=== PATIENT | male | born 1955 | race Caucasian/White ===

== ENCOUNTER → 2019-03-29 12:33 | Outpatient (BNVA) | payer MEDICAID, SELFPAY | PROVIDERS: Family Provider Nurse Practitioner Family; PCP Nurse Practitioner Family; Visit Provider Nurse Practitioner | DX: M54.5 Low back pain (principal); F17.220 Nicotine dependence, chewing tobacco, uncomplicated; Z79.891 Long term (current) use of opiate analgesic | CPT/HCPCS: 99213; 99214 ==

== ENCOUNTER → 2019-04-26 09:04 | Outpatient (BNVA) | payer MEDICAID, SELFPAY | PROVIDERS: Family Provider Nurse Practitioner Family; PCP Nurse Practitioner Family; Visit Provider Nurse Practitioner | DX: M54.5 Low back pain (principal); F17.220 Nicotine dependence, chewing tobacco, uncomplicated; Z79.891 Long term (current) use of opiate analgesic; Z71.6 Tobacco abuse counseling | CPT/HCPCS: 99214 ==

== ENCOUNTER → 2019-05-18 10:45 | Outpatient (BNVA) | payer MEDICAID, SELFPAY | PROVIDERS: Family Provider Nurse Practitioner Family; PCP Nurse Practitioner Family; Visit Provider Nurse Practitioner Family | DX: E11.9 Type 2 diabetes mellitus without complications (principal); R53.83 Other fatigue | CPT/HCPCS: 80053; 83036; 84443; 85025 ==

== ENCOUNTER → 2019-08-10 09:07 | Outpatient (BNVA) | payer MEDICAID, SELFPAY | PROVIDERS: Family Provider Nurse Practitioner Family; PCP Nurse Practitioner Family; Visit Provider Nurse Practitioner | DX: M47.816 Spondylosis without myelopathy or radiculopathy, lumbar region (principal); M54.9 Dorsalgia, unspecified; F17.220 Nicotine dependence, chewing tobacco, uncomplicated; Z79.891 Long term (current) use of opiate analgesic; Z71.6 Tobacco abuse counseling | CPT/HCPCS: 99213; 99214 ==

== ENCOUNTER → 2019-08-14 15:37 | Outpatient (BNVA) | payer MEDICAID, SELFPAY | PROVIDERS: Family Provider Nurse Practitioner Family; PCP Nurse Practitioner Family; Visit Provider Nurse Practitioner Family | DX: E11.9 Type 2 diabetes mellitus without complications (principal); Z79.4 Long term (current) use of insulin | CPT/HCPCS: 80053; 81001; 83036; 85025 ==

== ENCOUNTER 2019-09-27 13:50 | Outpatient (CLI) | payer MEDICAID, SELFPAY ==
--- NOTE | 2019-09-27 13:56 | US_ITS ---
WS: [id number] RENAL ULTRASOUND HISTORY: CKD STAGE 3 COMPARISON: 08/18/2018 TECHNIQUE: 2-D and color Doppler imaging of the kidney submitted. Right kidney: 10.3 cm x 4.3 cm x 4.4 cm. Normal echogenicity with no hydronephrosis or mass. Left kidney: 10.9 cm x 4.6 cm x 6.0 cm. Normal echogenicity with no hydronephrosis or mass. Aorta: Normal. Urinary Bladder: Normal distention. US/US renal BI* [id number] IMPRESSION: Normal renal ultrasound.
== END 2019-09-27 13:51 | disposition home or self-care (01) ==
LOC: RAD 13:51
PROVIDERS: Family Provider Nurse Practitioner Family; PCP Nurse Practitioner Family; Visit Provider Internal Medicine Nephrology
DX: N18.3 Chronic kidney disease, stage 3 (moderate) (principal)
CPT/HCPCS: 76770

== ENCOUNTER → 2019-10-20 08:02 | Outpatient (BNVA) | payer MEDICAID, SELFPAY | PROVIDERS: Family Provider Nurse Practitioner Family; PCP Nurse Practitioner Family; Visit Provider Anesthesiology | DX: M47.816 Spondylosis without myelopathy or radiculopathy, lumbar region (principal); M54.9 Dorsalgia, unspecified; F17.220 Nicotine dependence, chewing tobacco, uncomplicated; Z79.891 Long term (current) use of opiate analgesic; Z71.6 Tobacco abuse counseling | CPT/HCPCS: 99214 ==

== ENCOUNTER → 2019-12-14 13:22 | Outpatient (BNVA) | payer MEDICAID, SELFPAY | PROVIDERS: Family Provider Nurse Practitioner Family; PCP Nurse Practitioner Family; Visit Provider Nurse Practitioner Family | DX: E10.22 Type 1 diabetes mellitus with diabetic chronic kidney disease (principal); N18.30 Chronic kidney disease, stage 3 unspecified | CPT/HCPCS: 82043; 85007; 85027 ==

== ENCOUNTER → 2019-12-18 14:09 | Outpatient (BNVA) | payer MEDICAID, SELFPAY | PROVIDERS: Family Provider Nurse Practitioner Family; PCP Nurse Practitioner Family; Visit Provider Internal Medicine Nephrology | DX: N28.9 Disorder of kidney and ureter, unspecified (principal) | CPT/HCPCS: 80069 ==

== ENCOUNTER → 2019-12-20 10:26 | Outpatient (BNVA) | payer MEDICAID, SELFPAY | PROVIDERS: Family Provider Nurse Practitioner Family; PCP Nurse Practitioner Family; Visit Provider Anesthesiology | DX: M47.816 Spondylosis without myelopathy or radiculopathy, lumbar region (principal); M54.9 Dorsalgia, unspecified; F17.220 Nicotine dependence, chewing tobacco, uncomplicated; Z79.891 Long term (current) use of opiate analgesic; Z71.6 Tobacco abuse counseling | CPT/HCPCS: 99214 ==

== ENCOUNTER 2020-01-22 18:17 | Inpatient (IN) | payer MEDICAID, SELFPAY ==
[2020-01-22 18:31] VITALS: BP 145/79; PULSE 89; RESP 17; O2SAT 94
--- NOTE | 2020-01-22 18:41 | CTR_ITS ---
PROCEDURE INFORMATION: Exam: CT Head Without Contrast Exam date and time: 01/22/2020 6:57 PM Age: 64 years old Clinical indication: Altered mental status/memory loss; Additional info: Lethargy, TECHNIQUE: Imaging protocol: Computed tomography of the head without contrast. Radiation optimization: All CT scans at this facility use at least one of these dose optimization techniques: automated exposure control; mA and/or kV adjustment per patient size (includes targeted exams where dose is matched to clinical indication); or iterative reconstruction. COMPARISON: No relevant prior studies available. RADIATION DOSE METRICS: Total DLP (mGy-cm): 849.24 FINDINGS: Brain: Mild atrophy and mild white matter chronic microvascular changes are noted. No hemorrhage or CT evidence of acute infarction is seen. Cerebral ventricles: No ventriculomegaly. Bones/joints: Unremarkable. No acute fracture. Paranasal sinuses: Visualized sinuses are unremarkable. No fluid levels. Mastoid air cells: Visualized mastoid air cells are well aerated. Soft tissues: Unremarkable. CT/CT head wo con* [id number] IMPRESSION: No acute intracranial abnormality. Radiation Dose CTDIVOL = (mGy): DLP = 849.24 (mGy-cm)
--- NOTE | 2020-01-22 18:41 | XR_ITS ---
WS: [id number] Exam: XR chest 1V portable [id number] Date/Time of Exam: 01/22/2020 6:54 PM Reason For Exam: syncope Comparison 08/13/2018. Findings: The lungs are clear and fully expanded. Costophrenic angles are sharp. No infiltrates. Bronchovascula r relief appears normal. Cardiac silhouette is unremarkable. Bony elements are intact. XR/XR chest 1V portable [id number] IMPRESSION: Unremarkable chest radiograph.
--- NOTE | 2020-01-22 18:42 | ECG_ITS ---
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 Measurements Intervals Erin Rate: 95 P: NM: -1 QRS: -27 QRSD: 93 T: -9 QT: 365 QTc: 460 Interpretive Statements SINUS RHYTHM WITH FREQUENT PREMATURE COMPLEXES BORDERLINE LEFT AXIS DEVIATION [QRS AXIS < -20] MODERATE T-WAVE ABNORMALITY, CONSIDER ANTEROLATERAL ISCHEMIA [-0.1+ mV T WAVE IN V3-V6] Compared to ECG 08/13/2018 17:31:58 T-wave abnormality now present Possible ischemia now present Sinus tachycardia no longer present Electronically Signed On 01-24-2020 8:03:23 HOSPITAL NURSE LIAISON by Maria Luisa Jacobsen M.D. [id number]
--- NOTE | 2020-01-22 18:46 | ED_ITS ---
Documented by User: MEG Peña 01/23/20 19:21 HPI - Weakness General: Chief complaint: Weakness Stated complaint: LETHARGIC Time Seen by Provider: 01/22/20 18:25 Source: patient and EMS Mode of arrival: EMS Limitations: altered mental status History of Present Illness: HPI Narrative: 64-year-old male patient presents to the emergency department with 6-day onset of not feeling well. He is a vague historian, difficulty with history of present illness and information. He reports not feeling well for 7 days, decreased energy. He reports not eating but extremely thirsty. His family was concerned due to lethargy, called 911 to have him evaluated in the ER. He denies cough congestion, denies chest pain, denies nausea vomiting diarrhea. Family reports he had a temperature prior to transfer to [facility], is appreciated here in the emergency department. During transport, EMS reports blood sugar 355. Family members recently tested positive for Covid 6 days ago. MD Complaint: generalized weakness and lack of energy Onset (ago): day(s) (6) Duration: constant and progressively worsening Severity: moderate Associated symptoms: Reports chills, confusion, decreased appetite and fever(s); Denies chest pain, diaphoresis, dysuria, easy bruising, headache(s), nausea or vomiting Review of Systems General: Reports: 10 or more systems reviewed and unremarkable except in HPI and below Const: Reports: fever(s), chills, fatigue, malaise and change in sleep pattern; Denies: diaphoresis Eyes: Denies: blurry vision or eye redness ENMT: Denies: throat pain, dental pain or disequilibrium Card: Denies: chest pain, palpitations or irregular heart rhythm Resp: Denies: dyspnea, productive cough, non-productive cough or wheezing GI: Denies: abdominal pain, nausea or vomiting : Denies: dysuria Musc: Denies: back pain Skin/Breast: Denies: rash or pruritus Neuro: Reports: confusion; Denies: headache(s), weakness in extremities or behavioral changes Psych: Denies: anxiety or depression Aaron/Lymph: Denies: easy bruising PFSH ED PFSH: Medical History (Updated 01/23/20 @ 11:15 by Bakari Britton MD) Arthralgia of lumbar spine Chewing tobacco use Chronic kidney disease (CKD) stage G3b/A3, moderately decreased glomerular fi ltration rate (GFR) between 30-44 mL/min/1.73 square meter and albuminuria creatinine ratio greater than 300 mg/g Diabetes mellitus, type II Encounter for long-term opiate analgesic use Essential hypertension, benign Osteoarthritis of lumbar spine Vitamin D deficiency Surgical History Hx of appendectomy Family History Mother Diabetes Brother Heart problem has 2 brothers with pacemakers Grandfather Cancer Social History Smoking and tobacco status: current every day smoker smokeless tobacco Smokeless tobacco user: chewing tobacco Smokeless tobacco details: 1 can every 2- 3 days Second hand smoke exposure: No Alcohol intake: never Desire information about alcohol rehabilitation?: No Counseling given: No Desire information about substance/drug rehabilitation?: No Counseling given: No History of recent travel: No Physical Exam Const: COMMON NORMALS: no acute distress and alert EXAM LIMITATIONS: altered mental status GENERAL APPEARANCE: cooperative, comfortable and frail appearing NUTRITIONAL APPEARANCE: thin ORIENTATION/CONSCIOUSNESS: Yes awake, Yes oriented to person, Yes oriented to place and Yes confused HENMT: COMMON NORMALS: normocephalic, atraumatic, external ears normal and Normal external nose present HEAD & SCALP: normocephalic and atraumatic FACE & SINUS: normal facial exam NOSE: Normal external nose present and Other nasal findings present (dry mucous membranes) EXTERNAL EAR: Yes external ears normal Eye: COMMON NORMALS: Equal, round and reactive pupils present and EOMs intact bilaterally GENERAL EYE: appearance normal, both eyes and all related structures EYELID: eyelids normal PUPIL: Yes Equal, round and reactive pupils present Neck/C-Spine: COMMON NORMALS: full ROM and no lymphadenopathy GENERAL: Yes normal visual inspection and Yes trachea midline CERVICAL SPINE: Yes cervical ROM normal Lymph: LYMPHATIC: no lymphadenopathy noted Chest: COMMONS NORMALS: normal inspection of the chest Resp: COMMON NORMALS: normal respiratory effort EFFORT & INSPECTION: Yes able to speak in complete sentences AUSCULTATION: crackles Laterality: bilateral Cardio: COMMON NORMALS: regular rhythm, S1 normal heart sound present, S2 normal heart sound present and Peripheral pulses 2+ throughout RHYTHM: regular rhythm HEART SOUNDS: S1 normal heart sound present and S2 normal heart sound present PERIPHERAL PULSES: Peripheral pulses 2+ throughout GI: COMMON NORMALS: Normal to inspection, nondistended, normoactive bowel sounds present, Soft to palpation and non-tender INSPECTION: Yes normal to inspection and Yes scar (Vertical midline) PALPATION: Yes Soft to palpation : COMMON NORMALS: Yes no CVA tenderness BLADDER/KIDNEY EXAM: Yes no CVA tenderness Back/Pelvis: COMMON NORMALS: no CVA tenderness, thoracic and lumbar spine normal to inspection, no thoracic nor lumbar tenderness and thoraco-lumbar ROM normal PELVIS: Yes buttocks normal SACROILIAC JOINTS: Yes SI joints normal Extremity: COMMON NORMALS: normal to inspection and capillary refill normal GENERAL: Yes normal exam except as noted Neuro: COMMON NORMALS: no focal motor deficits SENSORIUM/ORIENTATION: Yes alert, Yes oriented to person and Yes oriented to place Psych: COMMON NORMALS: mental status grossly normal, Normal thought process present and cooperative ACTIVITY/MOTOR BEHAVIOR: Yes appropriate eye contact THOUGHT PROCESS: Normal thought process present Skin: COMMON NORMALS: no rashes or lesions noted and turgor normal GENERAL SKIN EXAM: no rashes or lesions noted and turgor normal Course ED course: 64-year-old male patient presents to the emergency department with lethargy, confusion and not feeling well. O2 saturation remained 89 to 90% on room air. Patient required supplemental oxygen which is new. Chest x-ray did not reveal acute abnormality, urinalysis revealed urinary tract infection, CT the head negative for intracranial abnormality, positive ketones in serum, presume early DKA. Case discussed with Dr. Strickland, transfer of care with possible need for IV insulin. Suspect COVID-19 infection as exposure to family members with illness approximately 6 days ago. Rapid COVID-19 test negative upon exam but PTC currently pending. Vital Signs: Vital signs: Vital Signs Temperature 99.4 F 01/23/20 15:41 Pulse Rate 87 01/23/20 15:41 Respiratory Rate 16 01/23/20 15:41 Blood Pressure 125/67 01/23/20 15:41 Pulse Oximetry 93 01/23/20 15:41 MDM - Weakness Lab Data: Labs: Lab Results 01/22/20 01/22/20 01/22/20 Range/Units 18:58 18:58 18:58 WBC 9.2 (4.0-10.0) 10^3/ uL RBC 4.87 (4.1-5.3) 10^6/u L Hgb 14.2 (11.7-16.6) g/dL Hct 44.0 (42.0-52.0) % MCV 90.3 (80-94) fL MCH 29.2 (28.0-34.0) pg MCHC 32.3 (30.0-36.0) g/dL RDW 11.9 L (12.1-15.1) % Plt Count 193 (130-400) 10^3/c mm MPV 10.8 H (7.4-10.4) fL Neut % (Auto) 73.8 % Lymph % (Auto) 19.7 % [place] % (Auto) 5.8 % Eos % (Auto) 0.0 % Baso % (Auto) 0.3 % Neut # (Auto) 6.75 (1.8-7.7) 10^3/u L Lymph # (Auto) 1.8 (0.8-4.8) 10^3/u L [place] # (Auto) 0.5 (0.2-0.9) 10^3/u L Eos # (Auto) 0.0 (0.0-0.8) 10^3/u L Baso # (Auto) 0.0 (0.0-0.1) 10^3/u L Nucleated RBC % (a uto) 0 % Nucleated RBCs # 0.0 /100WBC PT 13.60 (12.1-14.9) SECO NDS INR 1.01 (0.8-1.2) APTT 29.2 (23.9-36.7) SECO NDS D-Dimer 0.94 H (0-0.59) ug/mIFE U Sodium 137 (136-145) mmol/L Potassium 4.5 (3.5-5.1) mmol/L Chloride 103 (98-107) mmol/L Carbon Dioxide 18 L (22-29) mmol/L Anion Gap 20.5 H (5-19) BUN 33 H (8-23) mg/dL Creatinine 1.8 H (0.7-1.2) mg/dL GFR Calculation 38.4 L (90-130) mL/min Glucose 382 H (65-115) mg/dL POC Glucose (70-110) mg/dL Estimat Average Gl ucose Hemoglobin A1c (4.0-6.0) % Calculated Osmolal ity 307 H (285-295) mOsm/k g Lactate (0.5-2.2) mmol/L Calcium 9.1 (8.5-10.5) mg/dL Ferritin 1567 H (30-400) ng/mL Total Bilirubin 0.3 (0.15-1.2) mg/dL AST 27 (0-40) U/L ALT 15 (0-41) U/L Alkaline Phosphata se 58 (40-130) IU/L Troponin T Baselin e (0-15) ng/L Troponin T 120 [place] (0-15) ng/L Delta Troponin T (0-10) ABS# Troponin T Hi Sens 6Hr (0-15) ng/L Troponin T Hi Sens 6Hr Delta (0-12) ng/L Total Protein 7.5 (6.6-8.7) g/dL Albumin 3.8 (3.5-5.2) g/dL Globulin 3.7 (1.3-4.6) g/dL Procalcitonin 0.13 (0-0.5) ng/mL Urine Color (Yellow) Urine Appearance (CLEAR) Urine pH (5-7) Ur Specific Gravit y (1.005-1.030) Urine Protein (Negative) Urine Glucose (UA) (Normal) Urine Ketones (Negative) Urine Blood (Negative) Urine Nitrate (Negative) Urine Bilirubin (Negative) Urine Urobilinogen (Negative) mg/dL Ur Leukocyte Mariaelena ase (Negative) Urine RBC (0-2) /hpf Urine WBC (0-5) /hpf Ur Squamous Epith Cells (0-5) /hpf Amorphous Sediment Urine Bacteria (NONE) /hpf Serum Ketones Positive H (Negative) Influenza Type A A g (Negative) Influenza Type B A g (Negative) SARS-CoV-2 Ag (Rap id) (Negative) 01/22/20 01/22/20 01/22/20 Range/Units 18:58 18:58 18:58 WBC (4.0-10.0) 10^3/ uL RBC (4.1-5.3) 10^6/u L Hgb (11.7-16.6) g/dL Hct (42.0-52.0) % MCV (80-94) fL MCH (28.0-34.0) pg MCHC (30.0-36.0) g/dL RDW (12.1-15.1) % Plt Count (130-400) 10^3/c mm MPV (7.4-10.4) fL Neut % (Auto) % Lymph % (Auto) % [place] % (Auto) % Eos % (Auto) % Baso % (Auto) % Neut # (Auto) (1.8-7.7) 10^3/u L Lymph # (Auto) (0.8-4.8) 10^3/u L [place] # (Auto) (0.2-0.9) 10^3/u L Eos # (Auto) (0.0-0.8) 10^3/u L Baso # (Auto) (0.0-0.1) 10^3/u L Nucleated RBC % (a uto) % Nucleated RBCs # /100WBC PT (12.1-14.9) SECO NDS INR (0.8-1.2) APTT (23.9-36.7) SECO NDS D-Dimer (0-0.59) ug/mIFE U Sodium (136-145) mmol/L Potassium (3.5-5.1) mmol/L Chloride (98-107) mmol/L Carbon Dioxide (22-29) mmol/L Anion Gap (5-19) BUN (8-23) mg/dL Creatinine (0.7-1.2) mg/dL GFR Calculation (90-130) mL/min Glucose (65-115) mg/dL POC Glucose (70-110) mg/dL Estimat Average Gl ucose 338 Hemoglobin A1c 13.4 H (4.0-6.0) % Calculated Osmolal ity (285-295) mOsm/k g Lactate 1.9 (0.5-2.2) mmol/L Calcium (8.5-10.5) mg/dL Ferritin (30-400) ng/mL Total Bilirubin (0.15-1.2) mg/dL AST (0-40) U/L ALT (0-41) U/L Alkaline Phosphata se (40-130) IU/L Troponin T Baselin e 15 (0-15) ng/L Troponin T 120 [place] (0-15) ng/L Delta Troponin T (0-10) ABS# Troponin T Hi Sens 6Hr (0-15) ng/L Troponin T Hi Sens 6Hr Delta (0-12) ng/L Total Protein (6.6-8.7) g/dL Albumin (3.5-5.2) g/dL Globulin (1.3-4.6) g/dL Procalcitonin (0-0.5) ng/mL Urine Color (Yellow) Urine Appearance (CLEAR) Urine pH (5-7) Ur Specific Gravit y (1.005-1.030) Urine Protein (Negative) Urine Glucose (UA) (Normal) Urine Ketones (Negative) Urine Blood (Negative) Urine Nitrate (Negative) Urine Bilirubin (Negative) Urine Urobilinogen (Negative) mg/dL Ur Leukocyte Mariaelena ase (Negative) Urine RBC (0-2) /hpf Urine WBC (0-5) /hpf Ur Squamous Epith Cells (0-5) /hpf Amorphous Sediment Urine Bacteria (NONE) /hpf Serum Ketones (Negative) Influenza Type A A g (Negative) Influenza Type B A g (Negative) SARS-CoV-2 Ag (Rap id) (Negative) 01/22/20 01/22/20 01/22/20 Range/Units 19:11 19:11 21:10 WBC (4.0-10.0) 10^3/ uL RBC (4.1-5.3) 10^6/u L Hgb (11.7-16.6) g/dL Hct (42.0-52.0) % MCV (80-94) fL MCH (28.0-34.0) pg MCHC (30.0-36.0) g/dL RDW (12.1-15.1) % Plt Count (130-400) 10^3/c mm MPV (7.4-10.4) fL Neut % (Auto) % Lymph % (Auto) % [place] % (Auto) % Eos % (Auto) % Baso % (Auto) % Neut # (Auto) (1.8-7.7) 10^3/u L Lymph # (Auto) (0.8-4.8) 10^3/u L [place] # (Auto) (0.2-0.9) 10^3/u L Eos # (Auto) (0.0-0.8) 10^3/u L Baso # (Auto) (0.0-0.1) 10^3/u L Nucleated RBC % (a uto) % Nucleated RBCs # /100WBC PT (12.1-14.9) SECO NDS INR (0.8-1.2) APTT (23.9-36.7) SECO NDS D-Dimer (0-0.59) ug/mIFE U Sodium (136-145) mmol/L Potassium (3.5-5.1) mmol/L Chloride (98-107) mmol/L Carbon Dioxide (22-29) mmol/L Anion Gap (5-19) BUN (8-23) mg/dL Creatinine (0.7-1.2) mg/dL GFR Calculation (90-130) mL/min Glucose (65-115) mg/dL POC Glucose (70-110) mg/dL Estimat Average Gl ucose Hemoglobin A1c (4.0-6.0) % Calculated Osmolal ity (285-295) mOsm/k g Lactate (0.5-2.2) mmol/L Calcium (8.5-10.5) mg/dL Ferritin (30-400) ng/mL Total Bilirubin (0.15-1.2) mg/dL AST (0-40) U/L ALT (0-41) U/L Alkaline Phosphata se (40-130) IU/L Troponin T Baselin e (0-15) ng/L Troponin T 120 [place] 13.62 (0-15) ng/L Delta Troponin T -1.38 L (0-10) ABS# Troponin T Hi Sens 6Hr (0-15) ng/L Troponin T Hi Sens 6Hr Delta (0-12) ng/L Total Protein (6.6-8.7) g/dL Albumin (3.5-5.2) g/dL Globulin (1.3-4.6) g/dL Procalcitonin (0-0.5) ng/mL Urine Color (Yellow) Urine Appearance (CLEAR) Urine pH (5-7) Ur Specific Gravit y (1.005-1.030) Urine Protein (Negative) Urine Glucose (UA) (Normal) Urine Ketones (Negative) Urine Blood (Negative) Urine Nitrate (Negative) Urine Bilirubin (Negative) Urine Urobilinogen (Negative) mg/dL Ur Leukocyte Mariaelena ase (Negative) Urine RBC (0-2) /hpf Urine WBC (0-5) /hpf Ur Squamous Epith Cells (0-5) /hpf Amorphous Sediment Urine Bacteria (NONE) /hpf Serum Ketones (Negative) Influenza Type A A g Negative (Negative) Influenza Type B A g Negative (Negative) SARS-CoV-2 Ag (Rap id) Negative (Negative) 01/22/20 01/22/20 01/23/20 Range/Units 21:47 22:24 00:17 WBC (4.0-10.0) 10^3/ uL RBC (4.1-5.3) 10^6/u L Hgb (11.7-16.6) g/dL Hct (42.0-52.0) % MCV (80-94) fL MCH (28.0-34.0) pg MCHC (30.0-36.0) g/dL RDW (12.1-15.1) % Plt Count (130-400) 10^3/c mm MPV (7.4-10.4) fL Neut % (Auto) % Lymph % (Auto) % [place] % (Auto) % Eos % (Auto) % Baso % (Auto) % Neut # (Auto) (1.8-7.7) 10^3/u L Lymph # (Auto) (0.8-4.8) 10^3/u L [place] # (Auto) (0.2-0.9) 10^3/u L Eos # (Auto) (0.0-0.8) 10^3/u L Baso # (Auto) (0.0-0.1) 10^3/u L Nucleated RBC % (a uto) % Nucleated RBCs # /100WBC PT (12.1-14.9) SECO NDS INR (0.8-1.2) APTT (23.9-36.7) SECO NDS D-Dimer (0-0.59) ug/mIFE U Sodium (136-145) mmol/L Potassium (3.5-5.1) mmol/L Chloride (98-107) mmol/L Carbon Dioxide (22-29) mmol/L Anion Gap (5-19) BUN (8-23) mg/dL Creatinine (0.7-1.2) mg/dL GFR Calculation (90-130) mL/min Glucose (65-115) mg/dL POC Glucose 379 354 (70-110) mg/dL Estimat Average Gl ucose Hemoglobin A1c (4.0-6.0) % Calculated Osmolal ity (285-295) mOsm/k g Lactate (0.5-2.2) mmol/L Calcium (8.5-10.5) mg/dL Ferritin (30-400) ng/mL Total Bilirubin (0.15-1.2) mg/dL AST (0-40) U/L ALT (0-41) U/L Alkaline Phosphata se (40-130) IU/L Troponin T Baselin e (0-15) ng/L Troponin T 120 [place] (0-15) ng/L Delta Troponin T (0-10) ABS# Troponin T Hi Sens 6Hr (0-15) ng/L Troponin T Hi Sens 6Hr Delta (0-12) ng/L Total Protein (6.6-8.7) g/dL Albumin (3.5-5.2) g/dL Globulin (1.3-4.6) g/dL Procalcitonin (0-0.5) ng/mL Urine Color Yellow (Yellow) Urine Appearance Hazy A (CLEAR) Urine pH 5 (5-7) Ur Specific Gravit y 1.015 (1.005-1.030) Urine Protein Trace (Negative) Urine Glucose (UA) 4+ H (Normal) Urine Ketones 1+ H (Negative) Urine Blood Trace H (Negative) Urine Nitrate Positive H (Negative) Urine Bilirubin Neg (Negative) Urine Urobilinogen Norm (Negative) mg/dL Ur Leukocyte Mariaelena ase Negative (Negative) Urine RBC 0-4 H (0-2) /hpf Urine WBC 10-15 H (0-5) /hpf Ur Squamous Epith Cells 0-4 H (0-5) /hpf Amorphous Sediment Not Reportable Urine Bacteria 2+ H (NONE) /hpf Serum Ketones (Negative) Influenza Type A A g (Negative) Influenza Type B A g (Negative) SARS-CoV-2 Ag (Rap id) (Negative) 01/23/20 01/23/20 01/23/20 Range/Units 01:33 02:29 02:57 WBC (4.0-10.0) 10^3/ uL RBC (4.1-5.3) 10^6/u L Hgb (11.7-16.6) g/dL Hct (42.0-52.0) % MCV (80-94) fL MCH (28.0-34.0) pg MCHC (30.0-36.0) g/dL RDW (12.1-15.1) % Plt Count (130-400) 10^3/c mm MPV (7.4-10.4) fL Neut % (Auto) % Lymph % (Auto) % [place] % (Auto) % Eos % (Auto) % Baso % (Auto) % Neut # (Auto) (1.8-7.7) 10^3/u L Lymph # (Auto) (0.8-4.8) 10^3/u L [place] # (Auto) (0.2-0.9) 10^3/u L Eos # (Auto) (0.0-0.8) 10^3/u L Baso # (Auto) (0.0-0.1) 10^3/u L Nucleated RBC % (a uto) % Nucleated RBCs # /100WBC PT (12.1-14.9) SECO NDS INR (0.8-1.2) APTT (23.9-36.7) SECO NDS D-Dimer (0-0.59) ug/mIFE U Sodium (136-145) mmol/L Potassium (3.5-5.1) mmol/L Chloride (98-107) mmol/L Carbon Dioxide (22-29) mmol/L Anion Gap (5-19) BUN (8-23) mg/dL Creatinine (0.7-1.2) mg/dL GFR Calculation (90-130) mL/min Glucose (65-115) mg/dL POC Glucose 340 288 (70-110) mg/dL Estimat Average Gl ucose Hemoglobin A1c (4.0-6.0) % Calculated Osmolal ity (285-295) mOsm/k g Lactate (0.5-2.2) mmol/L Calcium (8.5-10.5) mg/dL Ferritin (30-400) ng/mL Total Bilirubin (0.15-1.2) mg/dL AST (0-40) U/L ALT (0-41) U/L Alkaline Phosphata se (40-130) IU/L Troponin T Baselin e (0-15) ng/L Troponin T [address] [place] (0-15) ng/L Delta Troponin T (0-10) ABS# Troponin T Hi Sens 6Hr 10.88 (0-15) ng/L Troponin T Hi Sens 6Hr Delta -4.12 L (0-12) ng/L Total Protein (6.6-8.7) g/dL Albumin (3.5-5.2) g/dL Globulin (1.3-4.6) g/dL Procalcitonin (0-0.5) ng/mL Urine Color (Yellow) Urine Appearance (CLEAR) Urine pH (5-7) Ur Specific Gravit y (1.005-1.030) Urine Protein (Negative) Urine Glucose (UA) (Normal) Urine Ketones (Negative) Urine Blood (Negative) Urine Nitrate (Negative) Urine Bilirubin (Negative) Urine Urobilinogen (Negative) mg/dL Ur Leukocyte Mariaelena ase (Negative) Urine RBC (0-2) /hpf Urine WBC (0-5) /hpf Ur Squamous Epith Cells (0-5) /hpf Amorphous Sediment Urine Bacteria (NONE) /hpf Serum Ketones (Negative) Influenza Type A A g (Negative) Influenza Type B A g (Negative) SARS-CoV-2 Ag (Rap id) (Negative) 01/23/20 01/23/20 Range/Units 02:57 03:32 WBC (4.0-10.0) 10^3/ uL RBC (4.1-5.3) 10^6/u L Hgb (11.7-16.6) g/dL Hct (42.0-52.0) % MCV (80-94) fL MCH (28.0-34.0) pg MCHC (30.0-36.0) g/dL RDW (12.1-15.1) % Plt Count (130-400) 10^3/c mm MPV (7.4-10.4) fL Neut % (Auto) % Lymph % (Auto) % [place] % (Auto) % Eos % (Auto) % Baso % (Auto) % Neut # (Auto) (1.8-7.7) 10^3/u L Lymph # (Auto) (0.8-4.8) 10^3/u L [place] # (Auto) (0.2-0.9) 10^3/u L Eos # (Auto) (0.0-0.8) 10^3/u L Baso # (Auto) (0.0-0.1) 10^3/u L Nucleated RBC % (a uto) % Nucleated RBCs # /100WBC PT (12.1-14.9) SECO NDS INR (0.8-1.2) APTT (23.9-36.7) SECO NDS D-Dimer (0-0.59) ug/mIFE U Sodium 138 (136-145) mmol/L Potassium 4.1 (3.5-5.1) mmol/L Chloride 107 (98-107) mmol/L Carbon Dioxide 18 L (22-29) mmol/L Anion Gap 17.1 (5-19) BUN 35 H (8-23) mg/dL Creatinine 1.7 H (0.7-1.2) mg/dL GFR Calculation 41.0 L (90-130) mL/min Glucose 277 H (65-115) mg/dL POC Glucose 208 (70-110) mg/dL Estimat Average Gl ucose Hemoglobin A1c (4.0-6.0) % Calculated Osmolal ity 304 H (285-295) mOsm/k g Lactate (0.5-2.2) mmol/L Calcium 8.6 (8.5-10.5) mg/dL Ferritin (30-400) ng/mL Total Bilirubin (0.15-1.2) mg/dL AST (0-40) U/L ALT (0-41) U/L Alkaline Phosphata se (40-130) IU/L Troponin T Baselin e (0-15) ng/L Troponin T [address] [place] (0-15) ng/L Delta Troponin T (0-10) ABS# Troponin T Hi Sens 6Hr (0-15) ng/L Troponin T Hi Sens 6Hr Delta (0-12) ng/L Total Protein (6.6-8.7) g/dL Albumin (3.5-5.2) g/dL Globulin (1.3-4.6) g/dL Procalcitonin (0-0.5) ng/mL Urine Color (Yellow) Urine Appearance (CLEAR) Urine pH (5-7) Ur Specific Gravit y (1.005-1.030) Urine Protein (Negative) Urine Glucose (UA) (Normal) Urine Ketones (Negative) Urine Blood (Negative) Urine Nitrate (Negative) Urine Bilirubin (Negative) Urine Urobilinogen (Negative) mg/dL Ur Leukocyte Mariaelena ase (Negative) Urine RBC (0-2) /hpf Urine WBC (0-5) /hpf Ur Squamous Epith Cells (0-5) /hpf Amorphous Sediment Urine Bacteria (NONE) /hpf Serum Ketones (Negative) Influenza Type A A g (Negative) Influenza Type B A g (Negative) SARS-CoV-2 Ag (Rap id) (Negative) Imaging Data^: CT Head: Radiologist's impression: [address] [address] [address] Scan Report Signed Patient: David Cisneros Unit #: [id number] : 1955 Age/Sex: 64 / M ADM Date: 01/22/20 Loc: ER Room/Bed: Attending Dr: Ordering Provider/Ordering MD: Teodora Sanchez Date of Service: 01/22/20 Procedure(s): CT head wo con* [id number] Accession Number(s): [id number] Report Number: [id number] PROCEDURE INFORMATION: Exam: CT Head Without Contrast Exam date and time: 01/22/2020 6:57 PM Age: 64 years old Clinical indication: Altered mental status/memory loss; Additional info: Lethargy, TECHNIQUE: Imaging protocol: Computed tomography of the head without contrast. Radiation optimization: All CT scans at this facility use at least one of these dose optimization techniques: automated exposure control; mA and/or kV adjustment per patient size (includes targeted exams where dose is matched to clinical indication); or iterative reconstruction. COMPARISON: No relevant prior studies available. RADIATION DOSE METRICS: Total DLP (mGy-cm): 849.24 FINDINGS: Brain: Mild atrophy and mild white matter chronic microvascular changes are noted. No hemorrhage or CT evidence of acute infarction is seen. Cerebral ventricles: No ventriculomegaly. Bones/joints: Unremarkable. No acute fracture. Paranasal sinuses: Visualized sinuses are unremarkable. No fluid levels. Mastoid air cells: Visualized mastoid air cells are well aerated. Soft tissues: Unremarkable. CT/CT head wo con* [id number] IMPRESSION: No acute intracranial abnormality. Radiation Dose CTDIVOL = (mGy): DLP = 849.24 (mGy-cm) Dictated By: Den Prado MD Signed By: Den Prado MD Signed Date/Time: 01/22/202008 DD/ 06 EKG Data^: EKG 1: EKG interpretation date: 01/22/20 EKG interpretation time: 19:22 Other EKG comments: Sinus rhythm with PACs, ventricular rate 95 EKG 2: EKG interpretation date: 01/22/20 EKG interpretation time: 21:00 Prior EKG tracings: available for review Computer generated interpretation: Sinus rhythm, borderline left axis deviation, abnormal ECG Discharge Plan Discharge Patient Disposition: Admitted As Inpatient Admit Provider: Kaya Wu Coding Level of Care Code ED Electrical Prospecting Observer for Chg Fwd Exam Comprehensive Documented by User: Elly Strickland MD 01/23/20 04:17 HPI - Weakness General: Chief complaint: Weakness Stated complaint: LETHARGIC Time Seen by Provider: 01/22/20 18:25 PFSH ED PFSH: Medical History (Updated 01/23/20 @ 11:15 by Bakari Britton MD) Arthralgia of lumbar spine Chewing tobacco use Chronic kidney disease (CKD) stage G3b/A3, moderately decreased glomerular filtration rate (GFR) between 30-44 mL/min/1.73 square meter and albuminuria creatinine ratio greater than 300 mg/g Diabetes mellitus, type II Encounter for long-term opiate analgesic use Essential hypertension, benign Osteoarthritis of lumbar spine Vitamin D deficiency Surgical History Hx of appendectomy Family History Mother Diabetes Brother Heart problem has 2 brothers with pacemakers Grandfather Cancer Social History Smoking and tobacco status: current every day smoker smokeless tobacco Smokeless tobacco user: chewing tobacco Smokeless tobacco details: 1 can every 2- 3 days Second hand smoke exposure: No Alcohol intake: never Desire information about alcohol rehabilitation?: No Counseling given: No Desire information about substance/drug rehabilitation?: No Counseling given: No History of recent travel: No Course ED course: I saw this patient with Teodora Ricardo, nurse practitioner. He is here for some confusion and lethargy and is an insulin-dependent diabetic. He does have a urinary tract infection which he has had previously as well. He was given Rocephin for this. He did have some positive serum ketones and a gap of 20. Blood sugar was elevated. He tested negative for Covid but did have some positive family members at home apparently. He has some chronic renal insufficiency which is better than baseline today. Head CT was negative. We initially treated for about 4 hours with an insulin drip and were able to improve the gap down to 17. At this point we felt it was safe to take him off the insulin drip and let him go to the floor with bolus dosing of insulin. Dr. Pearson is admitting. Vital Signs: Vital signs: Vital Signs Temperature 99.4 F 01/23/20 15:41 Pulse Rate 87 01/23/20 15:41 Respiratory Rate 16 01/23/20 15:41 Blood Pressure 125/67 01/23/20 15:41 Pulse Oximetry 93 01/23/20 15:41 MDM - Weakness Lab Data: Labs: Lab Results 01/22/20 01/22/20 01/22/20 Range/Units 18:58 18:58 18:58 WBC 9.2 (4.0-10.0) 10^3/ uL RBC 4.87 (4.1-5.3) 10^6/u L Hgb 14.2 (11.7-16.6) g/dL Hct 44.0 (42.0-52.0) % MCV 90.3 (80-94) fL MCH 29.2 (28.0-34.0) pg MCHC 32.3 (30.0-36.0) g/dL RDW 11.9 L (12.1-15.1) % Plt Count 193 (130-400) 10^3/c mm MPV 10.8 H (7.4-10.4) fL Neut % (Auto) 73.8 % Lymph % (Auto) 19.7 % [place] % (Auto) 5.8 % Eos % (Auto) 0.0 % Baso % (Auto) 0.3 % Neut # (Auto) 6.75 (1.8-7.7) 10^3/u L Lymph # (Auto) 1.8 (0.8-4.8) 10^3/u L [place] # (Auto) 0.5 (0.2-0.9) 10^3/u L Eos # (Auto) 0.0 (0.0-0.8) 10^3/u L Baso # (Auto) 0.0 (0.0-0.1) 10^3/u L Nucleated RBC % (a uto) 0 % Nucleated RBCs # 0.0 /100WBC PT 13.60 (12.1-14.9) SECO NDS INR 1.01 (0.8-1.2) APTT 29.2 (23.9-36.7) SECO NDS D-Dimer 0.94 H (0-0.59) ug/mIFE U Sodium 137 (136-145) mmol/L Potassium 4.5 (3.5-5.1) mmol/L Chloride 103 (98-107) mmol/L Carbon Dioxide 18 L (22-29) mmol/L Anion Gap 20.5 H (5-19) BUN 33 H (8-23) mg/dL Creatinine 1.8 H (0.7-1.2) mg/dL GFR Calculation 38.4 L (90-130) mL/min Glucose 382 H (65-115) mg/dL POC Glucose (70-110) mg/dL Estimat Average Gl ucose Hemoglobin A1c (4.0-6.0) % Calculated Osmolal ity 307 H (285-295) mOsm/k g Lactate (0.5-2.2) mmol/L Calcium 9.1 (8.5-10.5) mg/dL Ferritin 1567 H (30-400) ng/mL Total Bilirubin 0.3 (0.15-1.2) mg/dL AST 27 (0-40) U/L ALT 15 (0-41) U/L Alkaline Phosphata se 58 (40-130) IU/L Troponin T Baselin e (0-15) ng/L Troponin T 120 [place] (0-15) ng/L Delta Troponin T (0-10) ABS# Troponin T Hi Sens 6Hr (0-15) ng/L Troponin T Hi Sens 6Hr Delta (0-12) ng/L Total Protein 7.5 (6.6-8.7) g/dL Albumin 3.8 (3.5-5.2) g/dL Globulin 3.7 (1.3-4.6) g/dL Procalcitonin 0.13 (0-0.5) ng/mL Urine Color (Yellow) Urine Appearance (CLEAR) Urine pH (5-7) Ur Specific Gravit y (1.005-1.030) Urine Protein (Negative) Urine Glucose (UA) (Normal) Urine Ketones (Negative) Urine Blood (Negative) Urine Nitrate (Negative) Urine Bilirubin (Negative) Urine Urobilinogen (Negative) mg/dL Ur Leukocyte Mariaelena ase (Negative) Urine RBC (0-2) /hpf Urine WBC (0-5) /hpf Ur Squamous Epith Cells (0-5) /hpf Amorphous Sediment Urine Bacteria (NONE) /hpf Serum Ketones Positive H (Negative) Influenza Type A A g (Negative) Influenza Type B A g (Negative) SARS-CoV-2 Ag (Rap id) (Negative) 01/22/20 01/22/20 01/22/20 Range/Units 18:58 18:58 18:58 WBC (4.0-10.0) 10^3/ uL RBC (4.1-5.3) 10^6/u L Hgb (11.7-16.6) g/dL Hct (42.0-52.0) % MCV (80-94) fL MCH (28.0-34.0) pg MCHC (30.0-36.0) g/dL RDW (12.1-15.1) % Plt Count (130-400) 10^3/c mm MPV (7.4-10.4) fL Neut % (Auto) % Lymph % (Auto) % [place] % (Auto) % Eos % (Auto) % Baso % (Auto) % Neut # (Auto) (1.8-7.7) 10^3/u L Lymph # (Auto) (0.8-4.8) 10^3/u L [place] # (Auto) (0.2-0.9) 10^3/u L Eos # (Auto) (0.0-0.8) 10^3/u L Baso # (Auto) (0.0-0.1) 10^3/u L Nucleated RBC % (a uto) % Nucleated RBCs # /100WBC PT (12.1-14.9) SECO NDS INR (0.8-1.2) APTT (23.9-36.7) SECO NDS D-Dimer (0-0.59) ug/mIFE U Sodium (136-145) mmol/L Potassium (3.5-5.1) mmol/L Chloride (98-107) mmol/L Carbon Dioxide (22-29) mmol/L Anion Gap (5-19) BUN (8-23) mg/dL Creatinine (0.7-1.2) mg/dL GFR Calculation (90-130) mL/min Glucose (65-115) mg/dL POC Glucose (70-110) mg/dL Estimat Average Gl ucose 338 Hemoglobin A1c 13.4 H (4.0-6.0) % Calculated Osmolal ity (285-295) mOsm/k g Lactate 1.9 (0.5-2.2) mmol/L Calcium (8.5-10.5) mg/dL Ferritin (30-400) ng/mL Total Bilirubin (0.15-1.2) mg/dL AST (0-40) U/L ALT (0-41) U/L Alkaline Phosphata se (40-130) IU/L Troponin T Baselin e 15 (0-15) ng/L Troponin T [address] [place] (0-15) ng/L Delta Troponin T (0-10) ABS# Troponin T Hi Sens 6Hr (0-15) ng/L Troponin T Hi Sens 6Hr Delta (0-12) ng/L Total Protein (6.6-8.7) g/dL Albumin (3.5-5.2) g/dL Globulin (1.3-4.6) g/dL Procalcitonin (0-0.5) ng/mL Urine Color (Yellow) Urine Appearance (CLEAR) Urine pH (5-7) Ur Specific Gravit y (1.005-1.030) Urine Protein (Negative) Urine Glucose (UA) (Normal) Urine Ketones (Negative) Urine Blood (Negative) Urine Nitrate (Negative) Urine Bilirubin (Negative) Urine Urobilinogen (Negative) mg/dL Ur Leukocyte Mariaelena ase (Negative) Urine RBC (0-2) /hpf Urine WBC (0-5) /hpf Ur Squamous Epith Cells (0-5) /hpf Amorphous Sediment Urine Bacteria (NONE) /hpf Serum Ketones (Negative) Influenza Type A A g (Negative) Influenza Type B A g (Negative) SARS-CoV-2 Ag (Rap id) (Negative) 01/22/20 01/22/20 01/22/20 Range/Units 19:11 19:11 21:10 WBC (4.0-10.0) 10^3/ uL RBC (4.1-5.3) 10^6/u L Hgb (11.7-16.6) g/dL Hct (42.0-52.0) % MCV (80-94) fL MCH (28.0-34.0) pg MCHC (30.0-36.0) g/dL RDW (12.1-15.1) % Plt Count (130-400) 10^3/c mm MPV (7.4-10.4) fL Neut % (Auto) % Lymph % (Auto) % [place] % (Auto) % Eos % (Auto) % Baso % (Auto) % Neut # (Auto) (1.8-7.7) 10^3/u L Lymph # (Auto) (0.8-4.8) 10^3/u L [place] # (Auto) (0.2-0.9) 10^3/u L Eos # (Auto) (0.0-0.8) 10^3/u L Baso # (Auto) (0.0-0.1) 10^3/u L Nucleated RBC % (a uto) % Nucleated RBCs # /100WBC PT (12.1-14.9) SECO NDS INR (0.8-1.2) APTT (23.9-36.7) SECO NDS D-Dimer (0-0.59) ug/mIFE U Sodium (136-145) mmol/L Potassium (3.5-5.1) mmol/L Chloride (98-107) mmol/L Carbon Dioxide (22-29) mmol/L Anion Gap (5-19) BUN (8-23) mg/dL Creatinine (0.7-1.2) mg/dL GFR Calculation (90-130) mL/min Glucose (65-115) mg/dL POC Glucose (70-110) mg/dL Estimat Average Gl ucose Hemoglobin A1c (4.0-6.0) % Calculated Osmolal ity (285-295) mOsm/k g Lactate (0.5-2.2) mmol/L Calcium (8.5-10.5) mg/dL Ferritin (30-400) ng/mL Total Bilirubin (0.15-1.2) mg/dL AST (0-40) U/L ALT (0-41) U/L Alkaline Phosphata se (40-130) IU/L Troponin T Baselin e (0-15) ng/L Troponin T 120 [place] 13.62 (0-15) ng/L Delta Troponin T -1.38 L (0-10) ABS# Troponin T Hi Sens 6Hr (0-15) ng/L Troponin T Hi Sens 6Hr Delta (0-12) ng/L Total Protein (6.6-8.7) g/dL Albumin (3.5-5.2) g/dL Globulin (1.3-4.6) g/dL Procalcitonin (0-0.5) ng/mL Urine Color (Yellow) Urine Appearance (CLEAR) Urine pH (5-7) Ur Specific Gravit y (1.005-1.030) Urine Protein (Negative) Urine Glucose (UA) (Normal) Urine Ketones (Negative) Urine Blood (Negative) Urine Nitrate (Negative) Urine Bilirubin (Negative) Urine Urobilinogen (Negative) mg/dL Ur Leukocyte Mariaelena ase (Negative) Urine RBC (0-2) /hpf Urine WBC (0-5) /hpf Ur Squamous Epith Cells (0-5) /hpf Amorphous Sediment Urine Bacteria (NONE) /hpf Serum Ketones (Negative) Influenza Type A A g Negative (Negative) Influenza Type B A g Negative (Negative) SARS-CoV-2 Ag (Rap id) Negative (Negative) 01/22/20 01/22/20 01/23/20 Range/Units 21:47 22:24 00:17 WBC (4.0-10.0) 10^3/ uL RBC (4.1-5.3) 10^6/u L Hgb (11.7-16.6) g/dL Hct (42.0-52.0) % MCV (80-94) fL MCH (28.0-34.0) pg MCHC (30.0-36.0) g/dL RDW (12.1-15.1) % Plt Count (130-400) 10^3/c mm MPV (7.4-10.4) fL Neut % (Auto) % Lymph % (Auto) % [place] % (Auto) % Eos % (Auto) % Baso % (Auto) % Neut # (Auto) (1.8-7.7) 10^3/u L Lymph # (Auto) (0.8-4.8) 10^3/u L [place] # (Auto) (0.2-0.9) 10^3/u L Eos # (Auto) (0.0-0.8) 10^3/u L Baso # (Auto) (0.0-0.1) 10^3/u L Nucleated RBC % (a uto) % Nucleated RBCs # /100WBC PT (12.1-14.9) SECO NDS INR (0.8-1.2) APTT (23.9-36.7) SECO NDS D-Dimer (0-0.59) ug/mIFE U Sodium (136-145) mmol/L Potassium (3.5-5.1) mmol/L Chloride (98-107) mmol/L Carbon Dioxide (22-29) mmol/L Anion Gap (5-19) BUN (8-23) mg/dL Creatinine (0.7-1.2) mg/dL GFR Calculation (90-130) mL/min Glucose (65-115) mg/dL POC Glucose 379 354 (70-110) mg/dL Estimat Average Gl ucose Hemoglobin A1c (4.0-6.0) % Calculated Osmolal ity (285-295) mOsm/k g Lactate (0.5-2.2) mmol/L Calcium (8.5-10.5) mg/dL Ferritin (30-400) ng/mL Total Bilirubin (0.15-1.2) mg/dL AST (0-40) U/L ALT (0-41) U/L Alkaline Phosphata se (40-130) IU/L Troponin T Baselin e (0-15) ng/L Troponin T 120 [place] (0-15) ng/L Delta Troponin T (0-10) ABS# Troponin T Hi Sens 6Hr (0-15) ng/L Troponin T Hi Sens 6Hr Delta (0-12) ng/L Total Protein (6.6-8.7) g/dL Albumin (3.5-5.2) g/dL Globulin (1.3-4.6) g/dL Procalcitonin (0-0.5) ng/mL Urine Color Yellow (Yellow) Urine Appearance Hazy A (CLEAR) Urine pH 5 (5-7) Ur Specific Gravit y 1.015 (1.005-1.030) Urine Protein Trace (Negative) Urine Glucose (UA) 4+ H (Normal) Urine Ketones 1+ H (Negative) Urine Blood Trace H (Negative) Urine Nitrate Positive H (Negative) Urine Bilirubin Neg (Negative) Urine Urobilinogen Norm (Negative) mg/dL Ur Leukocyte Mariaelena ase Negative (Negative) Urine RBC 0-4 H (0-2) /hpf Urine WBC 10-15 H (0-5) /hpf Ur Squamous Epith Cells 0-4 H (0-5) /hpf Amorphous Sediment Not Reportable Urine Bacteria 2+ H (NONE) /hpf Serum Ketones (Negative) Influenza Type A A g (Negative) Influenza Type B A g (Negative) SARS-CoV-2 Ag (Rap id) (Negative) 01/23/20 01/23/20 01/23/20 Range/Units 01:33 02:29 02:57 WBC (4.0-10.0) 10^3/ uL RBC (4.1-5.3) 10^6/u L Hgb (11.7-16.6) g/dL Hct (42.0-52.0) % MCV (80-94) fL MCH (28.0-34.0) pg MCHC (30.0-36.0) g/dL RDW (12.1-15.1) % Plt Count (130-400) 10^3/c mm MPV (7.4-10.4) fL Neut % (Auto) % Lymph % (Auto) % [place] % (Auto) % Eos % (Auto) % Baso % (Auto) % Neut # (Auto) (1.8-7.7) 10^3/u L Lymph # (Auto) (0.8-4.8) 10^3/u L [place] # (Auto) (0.2-0.9) 10^3/u L Eos # (Auto) (0.0-0.8) 10^3/u L Baso # (Auto) (0.0-0.1) 10^3/u L Nucleated RBC % (a uto) % Nucleated RBCs # /100WBC PT (12.1-14.9) SECO NDS INR (0.8-1.2) APTT (23.9-36.7) SECO NDS D-Dimer (0-0.59) ug/mIFE U Sodium (136-145) mmol/L Potassium (3.5-5.1) mmol/L Chloride (98-107) mmol/L Carbon Dioxide (22-29) mmol/L Anion Gap (5-19) BUN (8-23) mg/dL Creatinine (0.7-1.2) mg/dL GFR Calculation (90-130) mL/min Glucose (65-115) mg/dL POC Glucose 340 288 (70-110) mg/dL Estimat Average Gl ucose Hemoglobin A1c (4.0-6.0) % Calculated Osmolal ity (285-295) mOsm/k g Lactate (0.5-2.2) mmol/L Calcium (8.5-10.5) mg/dL Ferritin (30-400) ng/mL Total Bilirubin (0.15-1.2) mg/dL AST (0-40) U/L ALT (0-41) U/L Alkaline Phosphata se (40-130) IU/L Troponin T Baselin e (0-15) ng/L Troponin T [address] [place] (0-15) ng/L Delta Troponin T (0-10) ABS# Troponin T Hi Sens 6Hr 10.88 (0-15) ng/L Troponin T Hi Sens 6Hr Delta -4.12 L (0-12) ng/L Total Protein (6.6-8.7) g/dL Albumin (3.5-5.2) g/dL Globulin (1.3-4.6) g/dL Procalcitonin (0-0.5) ng/mL Urine Color (Yellow) Urine Appearance (CLEAR) Urine pH (5-7) Ur Specific Gravit y (1.005-1.030) Urine Protein (Negative) Urine Glucose (UA) (Normal) Urine Ketones (Negative) Urine Blood (Negative) Urine Nitrate (Negative) Urine Bilirubin (Negative) Urine Urobilinogen (Negative) mg/dL Ur Leukocyte Mariaelena ase (Negative) Urine RBC (0-2) /hpf Urine WBC (0-5) /hpf Ur Squamous Epith Cells (0-5) /hpf Amorphous Sediment Urine Bacteria (NONE) /hpf Serum Ketones (Negative) Influenza Type A A g (Negative) Influenza Type B A g (Negative) SARS-CoV-2 Ag (Rap id) (Negative) 01/23/20 01/23/20 Range/Units 02:57 03:32 WBC (4.0-10.0) 10^3/ uL RBC (4.1-5.3) 10^6/u L Hgb (11.7-16.6) g/dL Hct (42.0-52.0) % MCV (80-94) fL MCH (28.0-34.0) pg MCHC (30.0-36.0) g/dL RDW (12.1-15.1) % Plt Count (130-400) 10^3/c mm MPV (7.4-10.4) fL Neut % (Auto) % Lymph % (Auto) % [place] % (Auto) % Eos % (Auto) % Baso % (Auto) % Neut # (Auto) (1.8-7.7) 10^3/u L Lymph # (Auto) (0.8-4.8) 10^3/u L [place] # (Auto) (0.2-0.9) 10^3/u L Eos # (Auto) (0.0-0.8) 10^3/u L Baso # (Auto) (0.0-0.1) 10^3/u L Nucleated RBC % (a uto) % Nucleated RBCs # /100WBC PT (12.1-14.9) SECO NDS INR (0.8-1.2) APTT (23.9-36.7) SECO NDS D-Dimer (0-0.59) ug/mIFE U Sodium 138 (136-145) mmol/L Potassium 4.1 (3.5-5.1) mmol/L Chloride 107 (98-107) mmol/L Carbon Dioxide 18 L (22-29) mmol/L Anion Gap 17.1 (5-19) BUN 35 H (8-23) mg/dL Creatinine 1.7 H (0.7-1.2) mg/dL GFR Calculation 41.0 L (90-130) mL/min Glucose 277 H (65-115) mg/dL POC Glucose 208 (70-110) mg/dL Estimat Average Gl ucose Hemoglobin A1c (4.0-6.0) % Calculated Osmolal ity 304 H (285-295) mOsm/k g Lactate (0.5-2.2) mmol/L Calcium 8.6 (8.5-10.5) mg/dL Ferritin (30-400) ng/mL Total Bilirubin (0.15-1.2) mg/dL AST (0-40) U/L ALT (0-41) U/L Alkaline Phosphata se (40-130) IU/L Troponin T Baselin e (0-15) ng/L Troponin T [address] [place] (0-15) ng/L Delta Troponin T (0-10) ABS# Troponin T Hi Sens 6Hr (0-15) ng/L Troponin T Hi Sens 6Hr Delta (0-12) ng/L Total Protein (6.6-8.7) g/dL Albumin (3.5-5.2) g/dL Globulin (1.3-4.6) g/dL Procalcitonin (0-0.5) ng/mL Urine Color (Yellow) Urine Appearance (CLEAR) Urine pH (5-7) Ur Specific Gravit y (1.005-1.030) Urine Protein (Negative) Urine Glucose (UA) (Normal) Urine Ketones (Negative) Urine Blood (Negative) Urine Nitrate (Negative) Urine Bilirubin (Negative) Urine Urobilinogen (Negative) mg/dL Ur Leukocyte Mariaelena ase (Negative) Urine RBC (0-2) /hpf Urine WBC (0-5) /hpf Ur Squamous Epith Cells (0-5) /hpf Amorphous Sediment Urine Bacteria (NONE) /hpf Serum Ketones (Negative) Influenza Type A A g (Negative) Influenza Type B A g (Negative) SARS-CoV-2 Ag (Rap id) (Negative) Discharge Plan Discharge Patient Disposition: Admitted As Inpatient Admit Provider: Kaya Wu Coding Level of Care Code ED Electrical Prospecting Observer for [facility] Fwd Exam Comprehensive
[2020-01-22 19:07] VITALS: BP 141/90; PULSE 93; RESP 18; O2SAT 95
[2020-01-22 19:15] VITALS: TEMP 39.4
[2020-01-22 19:16] LABS: Basophils % 0.3 %; Hemoglobin 14.2 g/dL (11.7-16.6); Lymphocytes # 1.8 10^3/uL (0.8-4.8); Lymphocytes % 19.7 %; Mean Corpuscular HGB Conc 32.3 g/dL (30.0-36.0); Mean Corpuscular Hemoglobin 29.2 pg (28.0-34.0); Mean Corpuscular Volume 90.3 fL (80-94); Mean Platelet Volume 10.8 fL (7.4-10.4); Monocytes # 0.5 10^3/uL (0.2-0.9); Monocytes % 5.8 %; Neutrophils # 6.75 10^3/uL (1.8-7.7); Neutrophils % 73.8 %; Nucleated Red Blood Cells % 0 %; Platelet Count 193 10^3/cmm (130-400); Red Blood Count 4.87 10^6/uL (4.1-5.3); Red Cell Distribution Width 11.9 % (12.1-15.1); White Blood Count 9.2 10^3/uL (4.0-10.0)
[2020-01-22 19:24] LABS: INR 1.01 (0.8-1.2)
[2020-01-22 19:25] LABS: Partial Thromboplastin Time 29.2 SECONDS (23.9-36.7)
[2020-01-22] MEDS: sodium chloride 0.9% 500 ML 999 ML IV ×2 (19:25→21:20)
[2020-01-22] MEDS: acetaminophen 500 mg Tablet 1000 MG PO (19:25)
[2020-01-22 19:26] LABS: Ketone (Acetest) Serum Positive (Negative)
[2020-01-22 19:28] LABS: D Dimer 0.94 ug/mIFEU (0-0.59)
[2020-01-22 19:33] LABS: Lactate (Lactic Acid level) 1.9 mmol/L (0.5-2.2)
[2020-01-22 19:34] LABS: Alanine Aminotransferase 15 U/L (0-41); Albumin Level 3.8 g/dL (3.5-5.2); Alkaline Phosphatase 58 IU/L (40-130); Anion Gap 20.5 (5-19); Aspartate Amino Transferase 27 U/L (0-40); Blood Urea Nitrogen 33 mg/dL (8-23); Calcium 9.1 mg/dL (8.5-10.5); Carbon Dioxide 18 mmol/L (22-29); Chloride 103 mmol/L (98-107); Globulin 3.7 g/dL (1.3-4.6); Glomerular Filtration Rate 38.4 mL/min (90-130); Glucose 382 mg/dL (65-115); Osmolality Calculated 307 mOsm/kg (285-295); Potassium 4.5 mmol/L (3.5-5.1); Sodium 137 mmol/L (136-145); Total Bilirubin 0.3 mg/dL (0.15-1.2); Total Protein 7.5 g/dL (6.6-8.7)
[2020-01-22 19:35] LABS: Troponin(5th) Baseline 15 ng/L (0-15)
[2020-01-22 20:05] LABS: Influenza A by IFA Negative (Negative); Influenza B by IFA Negative (Negative); SARS Covid-2 Antigen Negative (Negative)
[2020-01-22 20:29] VITALS: BP 109/69; PULSE 85; RESP 17; O2SAT 90
--- NOTE | 2020-01-22 20:42 | ECG_ITS ---
[facility] Test Date: 2020-01-22 Pat Name: David Cisneros Department: Room: Gender: Male Auction Clerk: : [id number] Requested By: Teodora Paz Order Number: [id number] Tiffani MD: Maria Luisa Jacobsen M.D. Measurements Intervals [place] Rate: 82 P: 7 MT: 165 QRS: -22 QRSD: 109 T: 4 QT: 364 QTc: 426 Interpretive Statements SINUS RHYTHM BORDERLINE LEFT AXIS DEVIATION [QRS AXIS < -20] LOW QRS VOLTAGE IN PRECORDIAL LEADS [QRS DEFLECTION < 1.0 mV IN CHEST LEADS] Compared to ECG 01/22/2020 19:22:14 Low QRS voltage now present Atrial fibrillation no longer present Ventricular premature complex(es) no longer present Aberrant conduction of supraventricular beat(s) no longer present T-wave abnormality no longer present Possible ischemia no longer present Electronically Signed On 01-23-2020 21:59:14 DISTRICT CUSTOMS DIRECTOR by Maria Luisa Jacobsen M.D. [id number]
[2020-01-22 21:20] VITALS: BP 96/54; PULSE 93; RESP 17; TEMP 37; O2SAT 94
[2020-01-22 21:43] LABS: Troponin 5 2HR 13.62 ng/L (0-15); Troponin 5 2HR Delta -1.38 ABS# (0-10)
[2020-01-22 22:29] LABS: Glucose Point of Care 379 mg/dL (70-110)
[2020-01-22 22:38] LABS: Blood Urine Trace (Negative); Glucose Urine UA 4+ (Normal); Ketones Urine 1+ (Negative); Nitrate Urine Positive (Negative); Protein Urine Trace (Negative); Specific Gravity, Urine 1.015 (1.005-1.030); Urine Appearance Hazy (CLEAR); Urine Color Yellow (Yellow); pH Urine 5 (5-7)
[2020-01-22 22:39] LABS: Add Urine Microscopic? YES; Bilirubin Urine Neg (Negative); Leukocyte Esterase Urine Negative (Negative); Urobilinogen Urine Norm (Negative)
[2020-01-22 22:46] LABS: Procalcitonin 0.13 ng/mL (0-0.5)
[2020-01-22 22:48] LABS: Add Urine Culture? Yes; Bacteria Urine 2+ /hpf; RBC Urine 0-4 /hpf (0-2); Squamous Epithelial Cell Urine 0-4 /hpf (0-5)
[2020-01-22 23:10] LABS: Ferritin 1567 ng/mL (30-400)
[2020-01-23] VITALS (12 sets, daily range): BP systolic 95–135; BP diastolic 54–89; PULSE 73–87; RESP 16–20; TEMP 36.5–39; O2SAT 90–96
[2020-01-23 00:20] LABS: Glucose Point of Care 354 mg/dL (70-110)
[2020-01-23] MEDS: insulin regular-human 250 UNIT in sodium chloride 0.9% 250 ML 8.8 UNIT IV (00:30)
--- NOTE | 2020-01-23 01:34 | PC.NURSE ---
blood glucose via fingerstick 340
[2020-01-23 01:36] LABS: Glucose Point of Care 340 mg/dL (70-110)
[2020-01-23 02:33] LABS: Glucose Point of Care 288 mg/dL (70-110)
[2020-01-23 03:24] LABS: Blood Urea Nitrogen 35 mg/dL (8-23); Calcium 8.6 mg/dL (8.5-10.5); Carbon Dioxide 18 mmol/L (22-29); Chloride 107 mmol/L (98-107); Glucose 277 mg/dL (65-115); Osmolality Calculated 304 mOsm/kg (285-295); Sodium 138 mmol/L (136-145); Troponin 5 6HR 10.88 ng/L (0-15)
[2020-01-23 03:28] LABS: Anion Gap 17.1 (5-19); Potassium 4.1 mmol/L (3.5-5.1); Troponin 5 6HR Delta -4.12 ng/L (0-12)
[2020-01-23 03:35] LABS: Glucose Point of Care 208 mg/dL (70-110)
--- NOTE | 2020-01-23 03:44 | PM.HP ---
Providers/Chief Complaint Primary Care Provider: CHRIS Zambrano Chief Complaint: LETHARGIC History of Present Illness David Cisneros is a 64 year old male who presented with generalized malaise. Patient is stating that he has been experiencing fatigue malaise for last 1 week, his daughter was tested positive with COVID-19 who works at a halfway. Patient is denying fever, productive cough, abdominal pain, diarrhea, dysuria, chest pain, shortness of breath. At home his blood sugar has been ranging above 300, he is taking Levemir, empagliflozin and Januvia. He does not smoke or drink alcohol. He has not noticed any penile discharge. Diagnosis in the ER revealed DKA which resolved after 2 to 3 hours of IV insulin, hospital service was requested to admit the patient because of concerning UTI with recent DKA. At the time my evaluation blood sugar is 208, gap has closed, IV insulin has been stopped, potassium 4.1. Lactic 1.9, procalcitonin 0.13, Covid antigen negative, abnormal UA without symptoms of UTI. Review of Systems Const: Reports: chills, body aches and fatigue Eyes: Denies: change in vision ENMT: Denies: throat pain Card: Denies: chest pain Resp: Denies: dyspnea GI: Denies: abdominal pain : Denies: flank pain Musc: Denies: neck pain Skin/Breast: Denies: rash Neuro: Denies: headache(s) Psych: Denies: anxiety Endo: Denies: polyuria Aaron/Lymph: Denies: easy bruising All/Imm: Denies: urticaria Medications/Allergies Home Medications Medication Instructions Recorded Confirmed Last Taken Type aspirin 81 mg tablet,delayed 81 mg PO DAILY 03/28/19 01/22/20 Unknown History release insulin aspart U-100 100 unit/mL See Rx Instructions SUBCUT DAILY 08/16/19 01/22/20 Unknown Rx (3 mL) subcutaneous pen PRN 30 Days #15 ml MDD 12 units lisinopril 40 mg tablet 40 mg PO DAILY 90 Days #90 tab 09/28/19 01/22/20 Unknown Rx empagliflozin 25 mg tablet 25 mg PO DAILY 90 Days #90 tab 10/19/19 01/22/20 Unknown Rx lancets 25 gauge #100 each 10/19/19 01/22/20 Unknown Rx hydrocodone 10 mg-acetaminophen 1 tab PO .5 times per day PRN 30 12/20/19 01/22/20 01/22/20 18:00 Rx 325 mg tablet Days #150 tab MDD 5 insulin detemir U-100 100 unit/mL 44 unit SUBCUT DAILY 30 Days #15 ml 12/20/19 01/22/20 Unknown Rx (3 mL) subcutaneous pen pen needle, diabetic 32 gauge x #100 each 01/19/20 01/22/20 Unknown Rx sitagliptin 100 mg tablet 100 mg PO DAILY 30 Days #30 tab 01/19/20 01/22/20 Unknown Rx Crestor 10 mg PO DAILY 01/22/20 01/22/20 Unknown History Vitamin D2 50,000 unit PO Q7D 01/22/20 01/22/20 Unknown History fluticasone propionate [Flonase] 1 - 2 spray INTRANASAL PRN 01/22/20 01/22/20 Unknown History melatonin 10 mg PO PRN 01/22/20 01/22/20 Unknown History multivitamin 1 cap PO DAILY 01/22/20 01/22/20 Unknown History Allergies Allergy/AdvReac Type Severity Reaction Status Date / Time tramadol Allergy rapid Verified 01/22/20 19:54 heart rate PFSH Acute PFSH: Medical History (Updated 01/23/20 @ 04:42 by Kaya Wu MD) Arthralgia of lumbar spine Chewing tobacco use Chronic kidney disease (CKD) stage G3b/A3, moderately decreased glomerular filtration rate (GFR) between 30-44 mL/min/1.73 square meter and albuminuria creatinine ratio greater than 300 mg/g Diabetes mellitus, type II Encounter for long-term opiate analgesic use Essential hypertension, benign Osteoarthritis of lumbar spine Vitamin D deficiency Surgical History Hx of appendectomy Family History Mother Diabetes Brother Heart problem has 2 brothers with pacemakers Grandfather Cancer Social History Smoking and tobacco status: current every day smoker smokeless tobacco Smokeless tobacco user: chewing tobacco Smokeless tobacco details: 1 can every 2- 3 days Second hand smoke exposure: No Alcohol intake: never Desire information about alcohol rehabilitation?: No Counseling given: No Desire information about substance/drug rehabilitation?: No Counseling given: No History of recent travel: No Vitals/I&O/Wt Last Vital Signs Temp 98.6 F 01/22/20 21:20 Pulse 73 01/23/20 03:05 Resp 16 01/23/20 03:05 BP 104/89 01/23/20 03:05 Pulse Ox 92 01/23/20 03:05 01/22/20 01/22/20 01/23/20 14:59 22:59 06:59 Intake Total 1000 / 1000 10.707 / 1010.707 Balance 1000 / 1000 10.707 / 1010.707 Physical Exam Narrative: EXAM NARRATIVE: elderly male no active respiratory distress, Appears more than stated age No active chest pain abdominal pain No acute respiratory distress Saturating well on 2 L nasal cannula No lower extremity edema gangrene ulcer No abdominal pain, abdomen is soft nontender bowel sound present S1, S2 no tachycardia or signs of heart failure Appropriate mood and affect Alert oriented x3 GCS 15 EOMI, PERRLA Data : 01/22/20 18:58 01/23/20 02:57 Micro: Microbiology 01/22/20 21:10 Blood Culture - Preliminary Blood SPECIMEN COLLECTED 01/22/20 21:10 Blood Culture - Preliminary Blood SPECIMEN COLLECTED A&P Assessment and plan (1) DKA, type 2: Status: Acute (2) Asymptomatic bacteriuria: Status: Acute (3) Diabetes mellitus, type II: Status: Acute Qualifiers: Diabetes mellitus intermediate accountant insulin use: with shelter use Diabetes mellitus complication status: without complication Qualified Code(s): E11.9 - Type 2 diabetes mellitus without complications; Z79.4 - intermediate designer (current) use of insulin (4) Chronic kidney disease (CKD) stage G3b/A3, moderately decreased glomerular filtration rate (GFR) between 30-44 mL/min/1.73 square meter and albuminuria creatinine ratio greater than 300 mg/g: Status: Acute Additional A&P Information Mild DKA Patient is type II diabetic taking GLP-1 analog, SGLT2 inhibitor along with Levemir Gap has closed, I will start him on consistent carb diet along moderate sliding scale Check A1c level Patient is not endorsing symptoms of UTI COVID-19 antigen negative, chest x-ray shows mild vascular markings otherwise unremarkable Asymptomatic bacteriuria Patient is denying symptoms of UTI, I would recommend stopping SGLT2 inhibitor which can precipitate UTIs in the future considering his current UA I would hold off on antibiotics, asymptomatic bacteriuria with abnormal UA would not necessitate antibiotic usage Urine culture has been sent from the ER Chronic kidney disease stage IIIb No acute exacerbation Full code Consistent carb diet DVT prophylaxis Heparin Attestations Medical Necessity Statement*: Anticipating discharge in less than 48 hours currently need insulin if adjustment after recent mild DKA Time Spent in Patient Care: (>than 50% of time spent in counselling and/or direct pt care on unit). 40 minutes Coding Level of Care Code Acute Cancer Program Consultant for g Fwd Diagnoses DKA, type 2 E11.10 Asymptomatic bacteriuria R82.71 Diabetes mellitus, type II E11.9; Z79.4 Diabetes mellitus intermediate accountant insulin use: with intermediate accountant use Diabetes mellitus complication status: without complication Chronic kidney disease (CKD) stage G3b/A3, moderately decreased glomerular filtration rate (GFR) between 30-44 mL/min/1.73 square meter and albuminuria creatinine ratio greater than 300 mg/g N18.32
[2020-01-23] MEDS: cefTRIAXone 1,000 MG in sodium chloride 0.9% (plus) 50 ML 100 MG IV ×2 (04:34→18:11)
[2020-01-23] MEDS: heparin 5,000 unit/mL INJ 1 mL 5000 UNIT SUBCUT ×3 (06:11→22:55)
[2020-01-23] MEDS: sodium chloride 0.9% 1,000 ML 75 ML IV (06:11)
[2020-01-23 06:34] LABS: Estmated Average Glucose 338; Hemoglobin A1C 13.4 % (4.0-6.0)
--- NOTE | 2020-01-23 08:20 | PC.NURSE ---
i reported the high temp to the nurse 102.2
[2020-01-23] MEDS: atorvastatin 40 mg Tablet PO (08:43)
[2020-01-23] MEDS: acetaminophen 325 mg Tablet 650 MG PO (08:43)
[2020-01-23] MEDS: aspirin 81 mg EC Tablet PO (08:43)
[2020-01-23] MEDS: lisinopril 20 mg Tablet 40 MG PO (08:56)
--- NOTE | 2020-01-23 11:05 | PM.PN ---
Subjective Subjective: Interval history: Patient had shower this morning. Denies shortness of breath or chest pain. Denies cough. Does report chronic dyspnea on exertion which is unchanged for long period of time. Denies abdominal pain or problems with bowel movement. Denies any problems with urination. Spiked another fever 102.2. PCR Covid test is still pending. Urine is concerning for UTI as I do not see any other evidence of infection at this point. Vitals/I&O/Wt Last Vital Signs Temp 102.2 F H 01/23/20 08:00 Pulse 78 01/23/20 08:00 Resp 16 01/23/20 08:00 BP 123/75 01/23/20 08:00 Pulse Ox 92 01/23/20 08:00 01/22/20 01/23/20 01/23/20 22:59 06:59 14:59 Intake Total 1000 / 1000 30.680 / 1030.680 240 / 240 Output Total 450 / 450 Balance 1000 / 1000 30.680 / 1030.680 -210 / -210 Physical Exam Const: COMMON NORMALS: no acute distress and patient oriented x3 Resp: COMMON NORMALS: normal respiratory effort and clear to auscultation bilaterally AUSCULTATION: clear to auscultation bilaterally Cardio: COMMON NORMALS: regular rate, regular rhythm and S2 normal heart sound present RATE: regular rate RHYTHM: regular rhythm HEART SOUNDS: S2 normal heart sound present OTHER: No lower extremity edema GI: COMMON NORMALS: Normal to inspection, nondistended, normoactive bowel sounds present, Soft to palpation and non-tender PALPATION: Yes Soft to palpation OTHER: No CVA tenderness. Neuro: COMMON NORMALS: patient oriented x3 and no focal motor deficits Data : 01/22/20 18:58 01/23/20 02:57 Micro: Microbiology 01/22/20 21:10 Blood Culture - Preliminary Blood SPECIMEN COLLECTED 01/22/20 21:10 Blood Culture - Preliminary Blood SPECIMEN COLLECTED A&P Assessment and plan (1) DKA, type 2: Status: Acute (2) Asymptomatic bacteriuria: Concerning for urinary tract infection as cause of patient's fever. 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 Status: Acute (6) Chronic back pain: Status: Acute Additional A&P Information Mild DKA Patient is type II diabetic taking GLP-1 analog, SGLT2 inhibitor along with Levemir Gap has closed, I will start him on consistent carb diet along moderate sliding scale Check A1c level Patient is not endorsing symptoms of UTI COVID-19 antigen negative, chest x-ray shows mild vascular markings otherwise unremarkable Asymptomatic bacteriuria Patient is denying symptoms of UTI, I would recommend stopping SGLT2 inhibitor which can precipitate UTIs in the future considering his current UA I would hold off on antibiotics, asymptomatic bacteriuria with abnormal UA would not necessitate antibiotic usage Urine culture has been sent from the ER Chronic kidney disease stage IIIb No acute exacerbation Full code Consistent carb diet DVT prophylaxis Heparin PLAN: Restart patient on ceftriaxone. Awaiting culture results. At this point patient does not meet sepsis criteria therefore I will continue current monitoring. Awaiting COVID-19 test. Add Flomax. Monitor blood pressure. Attestations Medical Necessity Statement*: Patient was diabetic ketoacidosis and fever as well as concerning findings of UTI requires close inpatient monitoring and treatment until deemed safe for discharge. Coding Level of Care Code Acute Roaster Operator for Odilon Dewey Diagnoses DKA, type 2 E11.10 Asymptomatic bacteriuria R82.71 Diabetes mellitus, type II E11.9; Z79.4 Diabetes mellitus halfway insulin use: with superintendent marine oil terminal use Diabetes mellitus complication status: without complication Chronic kidney disease (CKD) stage G3b/A3, moderately decreased glomerular filtration rate (GFR) between 30-44 mL/min/1.73 square meter and albuminuria creatinine ratio greater than 300 mg/g N18.32 Urinary tract infection N39.0 Chronic back pain M54.9; G89.29
[2020-01-23 11:38] LABS: Glucose Point of Care 217 mg/dL (70-110)
[2020-01-23 11:38] LABS: Glucose Point of Care 375 mg/dL (70-110)
[2020-01-23] MEDS: ergocalciferol (vitamin D2) 50,000 Unit Capsule 50000 UNIT PO (12:01)
[2020-01-23] MEDS: tamsulosin 0.4 mg Capsule PO (12:01)
[2020-01-23] MEDS: HYDROcodone-acetaminophen 10-325 mg Tablet 1 TAB PO (14:02)
[2020-01-23 17:29] LABS: Glucose Point of Care 269 mg/dL (70-110)
[2020-01-23 20:37] LABS: Glucose Point of Care 262 mg/dL (70-110)
[2020-01-24 03:41] VITALS: BP 101/63; PULSE 79; RESP 20; TEMP 36.8; O2SAT 92
[2020-01-24 04:30] LABS: Anion Gap 16.1 (5-19); Blood Urea Nitrogen 28 mg/dL (8-23); Calcium 8.1 mg/dL (8.5-10.5); Carbon Dioxide 19 mmol/L (22-29); Chloride 111 mmol/L (98-107); Glomerular Filtration Rate 51.4 mL/min (90-130); Glucose 94 mg/dL (65-115); Osmolality Calculated 299 mOsm/kg (285-295); Potassium 4.1 mmol/L (3.5-5.1); Sodium 142 mmol/L (136-145)
[2020-01-24] MEDS: cefTRIAXone 1,000 MG in sodium chloride 0.9% (plus) 50 ML 100 MG IV ×2 (05:50→16:22)
[2020-01-24] MEDS: heparin 5,000 unit/mL INJ 1 mL 5000 UNIT SUBCUT ×3 (05:50→21:01)
[2020-01-24 06:18] LABS: Glucose Point of Care 133 mg/dL (70-110)
[2020-01-24 08:00] VITALS: BP 113/68; PULSE 79; RESP 24; TEMP 36.9; O2SAT 89
[2020-01-24] MEDS: acetaminophen 325 mg Tablet 650 MG PO (08:25)
[2020-01-24] MEDS: atorvastatin 40 mg Tablet PO (08:26)
[2020-01-24] MEDS: lisinopril 20 mg Tablet 40 MG PO (08:26)
[2020-01-24] MEDS: tamsulosin 0.4 mg Capsule PO (08:26)
[2020-01-24] MEDS: aspirin 81 mg EC Tablet PO (08:26)
[2020-01-24] MEDS: HYDROcodone-acetaminophen 10-325 mg Tablet 1 TAB PO ×4 (10:39→21:39)
[2020-01-24 11:30] LABS: Glucose Point of Care 236 mg/dL (70-110)
[2020-01-24 11:42] VITALS: BP 110/56; PULSE 66; RESP 14; TEMP 36.9; O2SAT 93
--- NOTE | 2020-01-24 14:11 | PM.PN ---
Subjective Subjective: Interval history: Patient noted to desaturate to high 80s this morning on room air. Oxygen was recommended but patient refused. Reports that he would always get epistaxis with oxygen use and does not want to. Reports that he does not have any symptoms of shortness of breath at rest. Reports he is not short of breath more than usual . He denies chest or abdominal pain. His creatinine continues to improve and down to 1.4. COVID-19 test still pending. Patient ambulates in his room without difficulty. Vitals/I&O/Wt Last Vital Signs Temp 98.5 F 01/24/20 11:42 Pulse 66 01/24/20 11:42 Resp 14 01/24/20 11:42 BP 110/56 01/24/20 11:42 Pulse Ox 93 01/24/20 11:42 01/23/20 01/24/20 01/24/20 22:59 06:59 14:59 Intake Total 410 / 1130 240 / 240 Output Total 250 / 1000 Balance 160 / 130 240 / 240 Physical Exam Const: COMMON NORMALS: no acute distress and patient oriented x3 Resp: COMMON NORMALS: normal respiratory effort and clear to auscultation bilaterally AUSCULTATION: clear to auscultation bilaterally Cardio: COMMON NORMALS: regular rate, regular rhythm and S2 normal heart sound present RATE: regular rate RHYTHM: regular rhythm HEART SOUNDS: S2 normal heart sound present OTHER: No lower extremity edema GI: COMMON NORMALS: Normal to inspection, nondistended, normoactive bowel sounds present, Soft to palpation and non-tender PALPATION: Yes Soft to palpation OTHER: No CVA tenderness. Neuro: COMMON NORMALS: patient oriented x3 and no focal motor deficits Data : 01/22/20 18:58 01/24/20 03:41 Micro: Microbiology 01/22/20 21:47 Urine Culture - Preliminary Urine,Clean Catch Gram Negative Rods 01/22/20 21:10 Blood Culture - Preliminary Blood NEGATIVE TO DATE 01/22/20 21:10 Blood Culture - Preliminary Blood NEGATIVE TO DATE A&P Assessment and plan (1) DKA, type 2: Status: Acute (2) Asymptomatic bacteriuria: Concerning for urinary tract infection as cause of patient's fever. Status: Acute (3) Diabetes mellitus, type II: Status: Acute Qualifiers: Diabetes mellitus [facility] insulin use: with middle or intermediate school principal use Diabetes mellitus complication status: without complication Qualified Code(s): E11.9 - Type 2 diabetes mellitus without complications; Z79.4 - director long term care (current) use of insulin (4) Chronic kidney disease (CKD) stage G3b/A3, moderately decreased glomerular filtration rate (GFR) between 30-44 mL/min/1.73 square meter and albuminuria creatinine ratio greater than 300 mg/g: Status: Acute (5) Urinary tract infection: Patient is on large amount of [place] for chronic back pain which could possibly create urinary obstruction and be the cause of UTI. Status: Acute (6) Chronic back pain: Status: Acute Additional A&P Information Mild DKA Patient is type II diabetic taking GLP-1 analog, SGLT2 inhibitor along with Levemir [place] has closed, I will start him on consistent carb diet along moderate sliding scale Check A1c level Patient is not endorsing symptoms of UTI COVID-19 antigen negative, chest x-ray shows mild vascular markings otherwise unremarkable Asymptomatic bacteriuria Patient is denying symptoms of UTI, I would recommend stopping SGLT2 inhibitor which can precipitate UTIs in the future considering his current UA I would hold off on antibiotics, asymptomatic bacteriuria with abnormal UA would not necessitate antibiotic usage Urine culture has been sent from the ER Chronic kidney disease stage IIIb No acute exacerbation Full code Consistent carb diet DVT prophylaxis Heparin PLAN: Continue current monitoring and treatment. If patient continues to improve we will likely be able to dismiss him home tomorrow. Repeat labs in a.m. including CBC. IV fluids discontinued. Encouraged oral intake. Attestations Medical Necessity Statement*: Patient with DKA, UTI and possible COVID-19 requires close inpatient monitoring and treatment until deemed safe for discharge. 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
[2020-01-24 16:00] VITALS: BP 132/74; PULSE 72; RESP 16; TEMP 36.8; O2SAT 93
[2020-01-24 16:48] LABS: Glucose Point of Care 256 mg/dL (70-110)
--- NOTE | 2020-01-24 17:33 | PC.RESP ---
Smoking Cessation information sent to patient.
[2020-01-24 20:00] VITALS: BP 126/69; PULSE 73; RESP 24; TEMP 36.9; O2SAT 93
[2020-01-24 20:33] LABS: Glucose Point of Care 434 mg/dL (70-110)
[2020-01-24 20:33] LABS: Glucose Point of Care 393 mg/dL (70-110)
[2020-01-25] VITALS: BP 118/63; PULSE 77; RESP 20; TEMP 38.4; O2SAT 92
--- NOTE | 2020-01-25 00:35 | PC.NURSE ---
Patient had not used urinal. When asked if they had used the restroom tonight patient stated yeah, a couple times.
[2020-01-25] MEDS: acetaminophen 325 mg Tablet 650 MG PO (00:54)
[2020-01-25] MEDS: cefTRIAXone 1,000 MG in sodium chloride 0.9% (plus) 50 ML 100 MG IV (03:48)
[2020-01-25 04:00] VITALS: BP 121/72; PULSE 79; RESP 22; TEMP 37.3; O2SAT 91
--- NOTE | 2020-01-25 05:02 | PC.NURSE ---
Addendum entered by Gregg Cherry RN 01/25/20 06:19: Patient's chronic pain is well controlled by Hydrocondone per may. Original Note: Patient spiked a fever through the night which was well controlled by tylenol per may. Other [facility] patient had an unremarkable night, mainly slept.
[2020-01-25] MEDS: HYDROcodone-acetaminophen 10-325 mg Tablet 1 TAB PO ×2 (05:11→10:53)
[2020-01-25] MEDS: heparin 5,000 unit/mL INJ 1 mL 5000 UNIT SUBCUT (05:12)
[2020-01-25 06:28] LABS: Glucose Point of Care 187 mg/dL (70-110)
[2020-01-25 07:31] VITALS: BP 123/72; PULSE 85; RESP 18; TEMP 36.9; O2SAT 90
[2020-01-25 08:02] LABS: Basophils % 0.3 %; Eosinophils # 0.1 10^3/uL (0.0-0.8); Eosinophils % 1.4 %; Hematocrit 37.4 % (42.0-52.0); Hemoglobin 12.1 g/dL (11.7-16.6); Lymphocytes # 2.1 10^3/uL (0.8-4.8); Lymphocytes % 24.3 %; Mean Corpuscular HGB Conc 32.4 g/dL (30.0-36.0); Mean Corpuscular Hemoglobin 28.9 pg (28.0-34.0); Mean Corpuscular Volume 89.5 fL (80-94); Mean Platelet Volume 10.6 fL (7.4-10.4); Monocytes # 0.6 10^3/uL (0.2-0.9); Monocytes % 6.5 %; Neutrophils # 5.88 10^3/uL (1.8-7.7); Neutrophils % 66.8 %; Nucleated Red Blood Cells % 0 %; Platelet Count 244 10^3/cmm (130-400); Red Blood Count 4.18 10^6/uL (4.1-5.3); Red Cell Distribution Width 11.9 % (12.1-15.1); White Blood Count 8.8 10^3/uL (4.0-10.0)
[2020-01-25 08:08] LABS: Quest SARS-CoV-2 RNA DETECTED (NOT DETECTED)
[2020-01-25 08:19] LABS: Alanine Aminotransferase 13 U/L (0-41); Albumin Level 2.7 g/dL (3.5-5.2); Alkaline Phosphatase 47 IU/L (40-130); Anion Gap 15.4 (5-19); Aspartate Amino Transferase 24 U/L (0-40); Blood Urea Nitrogen 21 mg/dL (8-23); Calcium 8.7 mg/dL (8.5-10.5); Carbon Dioxide 18 mmol/L (22-29); Chloride 107 mmol/L (98-107); Globulin 3.7 g/dL (1.3-4.6); Glomerular Filtration Rate 55.9 mL/min (90-130); Glucose 218 mg/dL (65-115); Magnesium 1.7 mg/dL (1.7-2.3); Osmolality Calculated 292 mOsm/kg (285-295); Potassium 4.4 mmol/L (3.5-5.1); Sodium 136 mmol/L (136-145); Total Bilirubin 0.3 mg/dL (0.15-1.2); Total Protein 6.4 g/dL (6.6-8.7)
[2020-01-25] MEDS: tamsulosin 0.4 mg Capsule PO (08:27)
[2020-01-25] MEDS: lisinopril 20 mg Tablet 40 MG PO (08:27)
[2020-01-25] MEDS: atorvastatin 40 mg Tablet PO (08:27)
[2020-01-25] MEDS: aspirin 81 mg EC Tablet PO (08:27)
--- NOTE | 2020-01-25 09:45 | PM.DCS ---
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 coli (6) Chronic back pain: Status: Acute Reason for Visit Reason for Visit: LETHARGIC Hospital Course Hospital Course Patient presented to ER with altered mental status with lethargy as well as generalized malaise and fatigue. Patient was found to have E. coli UTI as well as COVID-19 infection but denied any respiratory complaints. He had evidence of mild DKA. He was treated with IV fluids and antibiotic and gradually improved and this morning reports feeling much better and wants to go home. Patient ambulates in his room and goes to the bathroom without any problems. Patient reports that his oral intake improved and he got his appetite back. Patient was started on Flomax to hopefully avoid any future UTIs. Chronic opioid treatment is likely what predisposed patient to UTI. I will continue Omnicef for 10 more days. Patient's creatinine clearance is above 70, confirmed with pharmacy so Omnicef twice daily dose will be prescribed. Patient denies shortness of breath or chest pain this morning. He does have chronic dyspnea on exertion and appears to have previous smoking-related COPD therefore outpatient follow-up with pulmonology will be requested. I will also request outpatient follow-up with endocrinology service as patient's diabetes is not under control. I suspect medical noncompliance. Had extensive discussion regarding importance of complying with medical treatment and he voiced understanding. Patient refused to use oxygen but after my discussion agreed to be evaluated with 6-minute walk and if he requires oxygen this will be prescribed. Physical Exam Const: COMMON NORMALS: no acute distress and patient oriented x3 Resp: COMMON NORMALS: normal respiratory effort and clear to auscultation bilaterally AUSCULTATION: clear to auscultation bilaterally Cardio: COMMON NORMALS: regular rate, regular rhythm and S2 normal heart sound present RATE: regular rate RHYTHM: regular rhythm HEART SOUNDS: S2 normal heart sound present OTHER: No lower extremity edema GI: COMMON NORMALS: Normal to inspection, nondistended, normoactive bowel sounds present, Soft to palpation and non-tender PALPATION: Yes Soft to palpation Neuro: COMMON NORMALS: patient oriented x3 and no focal motor deficits Discharge Data Data Completed and Pending: Completed Studies During Hospitalization Category Date Time Status CT head wo con* 7 0450 Stat Cat Scan 01/22/20 18:41 Completed XR chest 1V blue ble [id number] Stat Exams 01/22/20 18:41 Completed Pending at discharge Category Date Time Status Blood Culture Sta t Lab 01/22/20 21:10 Results Complete Blood Co unt w/Auto AM LABS Lab 01/26/20 04:00 Ordered Complete Blood Co unt w/Auto AM LABS Lab 01/27/20 04:00 Ordered Comprehensive Met abolic Panel AM LA BS Lab 01/26/20 04:00 Ordered Comprehensive Met abolic Panel AM LA BS Lab 01/27/20 04:00 Ordered Magnesium AM LABS Lab 01/26/20 04:00 Ordered Magnesium AM LABS Lab 01/27/20 04:00 Ordered Labs from last 24 hours 01/25/20 01/25/20 01/25/20 07:30 07:30 06:23 WBC 8.8 RBC 4.18 Hgb 12.1 Hct 37.4 L MCV 89.5 MCH 28.9 MCHC 32.4 RDW 11.9 L Plt Count 244 MPV 10.6 H Neut % (Auto) 66.8 Lymph % (Auto) 24.3 [place] % (Auto) 6.5 Eos % (Auto) 1.4 Baso % (Auto) 0.3 Neut # (Auto) 5.88 Lymph # (Auto) 2.1 [place] # (Auto) 0.6 Eos # (Auto) 0.1 Baso # (Auto) 0.0 Nucleated RBC % (a uto) 0 Nucleated RBCs # 0.0 Sodium 136 Potassium 4.4 Chloride 107 Carbon Dioxide 18 L Anion Gap 15.4 BUN 21 Creatinine 1.3 H GFR Calculation 55.9 L Glucose 218 H POC Glucose 187 Calculated Osmolal ity 292 Calcium 8.7 Magnesium 1.7 Total Bilirubin 0.3 AST 24 ALT 13 Alkaline Phosphata se 47 Total Protein 6.4 L Albumin 2.7 L Globulin 3.7 SARS-CoV-2 RNA (RT -PCR) 01/24/20 01/24/20 01/24/20 20:21 20:19 16:36 WBC RBC Hgb Hct MCV MCH MCHC RDW Plt Count MPV Neut % (Auto) Lymph % (Auto) [place] % (Auto) Eos % (Auto) Baso % (Auto) Neut # (Auto) Lymph # (Auto) [place] # (Auto) Eos # (Auto) Baso # (Auto) Nucleated RBC % (a uto) Nucleated RBCs # Sodium Potassium Chloride Carbon Dioxide Anion Gap BUN Creatinine GFR Calculation Glucose POC Glucose 393 434 256 Calculated Osmolal ity Calcium Magnesium Total Bilirubin AST ALT Alkaline Phosphata se Total Protein Albumin Globulin SARS-CoV-2 RNA (RT -PCR) 01/24/20 01/23/20 11:25 05:22 WBC RBC Hgb Hct MCV MCH MCHC RDW Plt Count MPV Neut % (Auto) Lymph % (Auto) [place] % (Auto) Eos % (Auto) Baso % (Auto) Neut # (Auto) Lymph # (Auto) [place] # (Auto) Eos # (Auto) Baso # (Auto) Nucleated RBC % (a uto) Nucleated RBCs # Sodium Potassium Chloride Carbon Dioxide Anion Gap BUN Creatinine GFR Calculation Glucose POC Glucose 236 Calculated Osmolal ity Calcium Magnesium Total Bilirubin AST ALT Alkaline Phosphata se Total Protein Albumin Globulin SARS-CoV-2 RNA (RT -PCR) Detected A Vitals: Last Vital Signs Temp 98.5 F 01/25/20 07:31 Pulse 85 01/25/20 07:31 Resp 18 01/25/20 07:31 BP 123/72 01/25/20 07:31 Pulse Ox 90 01/25/20 07:31 Discharge Plan Discharge Patient Disposition: Home Condition: Stable Prescriptions: New cefdinir 300 mg capsule 300 mg PO BID 10 Days Qty: 20 RF: 0 tamsulosin 0.4 mg Capsule 0.4 mg PO DAILY Qty: 30 RF: 0 Continued insulin aspart U-100 [Novolog Flexpen U-100 Insulin] 100 unit/mL (3 mL) insulin pen See Rx Instructions SUBCUT DAILY MDD 12 units PRN (Reason: diabetes) 30 Days Qty: 15 RF: 2 lisinopril 40 mg tablet 40 mg PO DAILY 90 Days Qty: 90 RF: 1 aspirin [Aspirin Low Dose] 81 mg tablet,delayed release (DR/EC) 81 mg PO DAILY RF: 0 Jardiance 25 mg tablet 25 mg PO DAILY 90 Days Qty: 90 RF: 0 (DME) lancets 25 gauge misc See Rx Instructions .ROUTE .MEDSUPPLY Qty: 100 RF: 0 hydrocodone-acetaminophen 10-325 mg tablet 1 tab PO .5 times per day MDD 5 PRN (Reason: pain) 30 Days Qty: 150 RF: 0 Levemir FlexTouch U-100 Insuln 100 unit/mL (3 mL) insulin pen 44 unit SUBCUT DAILY 30 Days Qty: 15 RF: 2 (DME) pen needle, diabetic [TechLITE Pen Needle] 32 gauge x 5/32 needle See Rx Instructions .ROUTE .MEDSUPPLY Qty: 100 RF: 1 Januvia 100 mg tablet 100 mg PO DAILY 30 Days Qty: 30 RF: 2 multivitamin Capsule 1 cap PO DAILY RF: 0 Flonase 50 mcg/actuation [place],Suspension 1 - 2 spray INTRANASAL PRN RF: 0 melatonin 10 mg Tablet 10 mg PO PRN RF: 0 Vitamin D2 1,250 mcg (50,000 unit) capsule 50,000 unit PO Q7D RF: 0 Crestor 10 mg tablet 10 mg PO DAILY RF: 0 Discharge Orders: Discharge Order (Routine); Ordered 01/25/20 Ordered By: Bakari Britton Referrals: TasiarOneil MD [Physician] - 1 week SHAGUFTA Ruby FNP [Primary Care Provider] - 4-7 days Katherine Perez MD [Physician] - 1 week Discharge Diet: Advance as tolerated Discharge Activity: Increase activity as tolerated Activity Restrictions/Additional Instructions: Please call your doctor or present to emergency department if your condition worsens or you develop diarrhea, lightheadedness, fatigue or see blood in your stool or black stool. Please keep blood sugar, blood pressure and heart rate log 3 times daily to present to primary care physician next visit for medication adjustment. Please note that I am requesting outpatient follow-up with endocrinology and pulmonary service. Discharge Attestations Time Spent in Discharge Care*: greater than 30 min Quality Metrics Clinical Quality Measures During this hospital stay, did patient experience: None Coding Level of Care Code Acute Business Attorney for g Fwd Diagnoses DKA, type 2 E11.10 Asymptomatic bacteriuria R82.71 Diabetes mellitus, type II E11.9; Z79.4 Diabetes mellitus care home insulin use: with care home use Diabetes mellitus complication status: without complication Chronic kidney disease (CKD) stage G3b/A3, moderately decreased glomerular filtration rate (GFR) between 30-44 mL/min/1.73 square meter and albuminuria creatinine ratio greater than 300 mg/g N18.32 Urinary tract infection N39.0 Chronic back pain M54.9; G89.29
[2020-01-25 10:41] VITALS: O2SAT 88; O2SAT 91
[2020-01-25 11:32] LABS: Glucose Point of Care 276 mg/dL (70-110)
[2020-01-25 11:46] VITALS: BP 134/81; PULSE 72; RESP 18; TEMP 37.3; O2SAT 96
--- NOTE | 2020-01-25 14:35 | PC.NURSE ---
Review patient's discharge instruction with patient at this time. Patient was also dispensed his new prescriptions and his home medications were returned to him. Patient verbalized understanding of his discharge instructions and how to take his new medications. Patient was reminded to quarantine for the next 14 days. Patient is A&Ox3. Respirations even and non-labored on 2 liter of oxygen provided to patient by [facility] IV was removed intact.
[2020-01-25 15:04] VITALS: BP 134/81; PULSE 72; RESP 18; TEMP 37.3; O2SAT 96
--- NOTE | 2020-01-25 16:05 | PC.RESP ---
Smoking Cessation information sent to patient.
--- NOTE | 2020-01-26 12:44 | PC.SOCIAL ---
Post Discharge follow up call. Spoke with daughter. She indicates patient is not wanting to wear O2 as instructed and is mainly laying in bed due top weakness and not feeling well. This nurse explained since patient did qualify for O2 and is short of breath on exertion that he should be wearing his O2. By wearing O2 he will feel better. We discussed that he needs to be up ambulating to bathroom and to dining table to eat, to bathe etc at a minimum. We discussed the risk of blood clot in limbs and potential risk for clot to go to lungs with no activity. We discussed in detail he should take breaks inbetween activity but it is important that he does not lay in bed all day. Daughter verbalized understanding. He did get the new medications and we reviewed these. Daughter has no questions. Patient has appt with Business Line Manager and PCP on same day a few hours apart. Encouraged Daughter to call and see if any or both of these will be televisits or in person. Also he has a follow up appt with Dr Perez which was reviewed and daughter asks to verify if this is related to diabetees. We discussed this is the reason for visit. We discussed importance of keeping track of blood glucose levels, BP and HR and taking logs of these to follow up appts. Daughter verbalized understanding. We discussed importance of masking, avoiding groups, adhering to 6ft social distancing recommendation, sanitize highly touched surfaces and most important washing hands for 20 seconds each time and to wash often. Daughter verbalized understanding. We discussed option for plasma donation and will send information out for patient to review. No additional questions voiced. We discussed that it is normal for patient to be weaker than normal. He will need to know it takes time to recover.
== END 2020-01-25 14:50 | disposition home or self-care (01) | DRG 637 ==
LOC: ER 23:37 → MEDSURG 01-23 05:45
PROVIDERS: Nurse Practitioner Family; Admitting Provider Internal Medicine; Emergency Provider Emergency Medicine; PCP Nurse Practitioner Family; Visit Provider Internal Medicine
DX: E11.10 Type 2 diabetes mellitus with ketoacidosis without coma (principal); U07.1 COVID-19; N39.0 Urinary tract infection, site not specified; E11.22 Type 2 diabetes mellitus with diabetic chronic kidney disease; I12.9 Hypertensive chronic kidney disease with stage 1 through stage 4 chronic kidney disease, or unspecified chronic kidney disease; N18.32 Chronic kidney disease, stage 3b; M47.896 Other spondylosis, lumbar region; F17.220 Nicotine dependence, chewing tobacco, uncomplicated; Z79.891 Long term (current) use of opiate analgesic; E55.9 Vitamin D deficiency, unspecified; G89.29 Other chronic pain; Z79.4 Long term (current) use of insulin; B96.20 Unspecified Escherichia coli [E. coli] as the cause of diseases classified elsewhere
CPT/HCPCS: 12345; 36415; 36416; 70450; 71045; 80048; 80053; 81001; 82009; 82728; 82962; 83036; 83605; 83735; 84145; 84484; 85025; 85378; 85610; 85730; 87040; 87077; 87086; 87186; 87205; 87426; 87635; 87804; 93005; 96372; 99282; G0378; J0696; J1644; J1815; J7030; J7040; J7050

== ENCOUNTER 2020-02-16 11:21 | Outpatient (CLI) | payer MEDICAID, SELFPAY ==
--- NOTE | 2020-02-16 11:36 | CT_ITS ---
WS: [id number] LDCT LUNG CANCER SCREENING HISTORY: NICOTINE DEPENDENCE, CIGARETTES TECHNIQUE: Axial imaging performed from the apices to 1 cm below the costophrenic angles. Coronal and sagittal reformats are submitted with axial MIP series. All CT scans at [facility] use at least one of these dose optimization techniques: automated exposure control; mA and/or kV adjustment per patient size (includes targeted exams where dose is matched to clinical indication); or iterativ e reconstruction. DLP: 53.79 mGy.cm DIvol: 1.58 mGy COMPARISON: CT abdomen 08/13/2018 Diagnostic quality: Satisfactory Lung Nodules: There are numerous scattered areas of groundglass attenuation throughout all lobes. Pre dominantly in a peripheral distribution. Additional areas of linear atelectasis are also present bila terally. There are a few benign granulomata. No endobronchial lesion. Lungs: Pulmonary hyperexpansion. Heart: Normal size heart. Moderate vascular calcifications and coronary artery calcifications. No eff usion. Other findings: None. CT/CT lung screening G0297 IMPRESSION: LUNG-RADS: 1S-Negative with Significant Findings FOLLOW UP: 12 Month: Continue annual screening with LDCT OTHER FINDINGS (S MODIFIER): Bilateral diffuse areas of groundglass attenuation . These areas of groundglass attenuation and increasing opacification are new a t the lung bases since 08/13/2018. Suspect these may be related to acute pneumoni tis and not neoplastic. Short-term clinical follow-up is recommended. [address] may be beneficial to confirm resolution and no progression.
== END 2020-02-16 11:22 | disposition home or self-care (01) ==
LOC: RAD 11:29
PROVIDERS: PCP Nurse Practitioner Family; Visit Provider Internal Medicine Pulmonary Disease
DX: Z12.2 Encounter for screening for malignant neoplasm of respiratory organs (principal); F17.210 Nicotine dependence, cigarettes, uncomplicated
CPT/HCPCS: G0297

== ENCOUNTER → 2020-02-20 12:53 | Outpatient (BNVA) | payer MEDICAID, SELFPAY | PROVIDERS: Family Provider Nurse Practitioner Family; PCP Nurse Practitioner Family; Visit Provider Anesthesiology | DX: G89.29 Other chronic pain (principal); M54.9 Dorsalgia, unspecified; M54.41 Lumbago with sciatica, right side; M54.42 Lumbago with sciatica, left side; M47.816 Spondylosis without myelopathy or radiculopathy, lumbar region; F17.220 Nicotine dependence, chewing tobacco, uncomplicated; Z79.891 Long term (current) use of opiate analgesic; Z71.6 Tobacco abuse counseling | CPT/HCPCS: 99213; 99214 ==

== ENCOUNTER → 2020-02-22 10:28 | Outpatient (BNVA) | payer MEDICAID, SELFPAY | PROVIDERS: Family Provider Nurse Practitioner Family; PCP Nurse Practitioner Family; Visit Provider Nurse Practitioner Family | DX: E11.9 Type 2 diabetes mellitus without complications (principal); Z79.4 Long term (current) use of insulin; I10 Essential (primary) hypertension | CPT/HCPCS: 80053; 81003; 85025 ==

== ENCOUNTER → 2020-03-29 14:13 | Outpatient (BNVA) | payer MEDICAID, SELFPAY | PROVIDERS: PCP Nurse Practitioner Family; Visit Provider Internal Medicine Pulmonary Disease | DX: Z20.822 Contact with and (suspected) exposure to COVID-19 (principal) | CPT/HCPCS: 87635 ==

== ENCOUNTER 2020-04-04 10:55 | Outpatient (CLI) | payer MEDICAID, SELFPAY ==
--- NOTE | 2020-04-04 11:35 | PFTS_ITS ---
Date of Study:04/04/20 Date of Dictation: MECHANICS: Forced vital capacity (FVC) is normal. Forced expiratory volume in one second (FEV1) is normal. FEV1/FVC is normal. FLOW VOLUME LOOP: Evidence of hesitation in the flow volume loop. LUNG VOLUMES: Total lung capacity (TLC) is normal. Residual volume (RV) is elevated. DIFFUSING CAPACITY FOR CARBON MONOXIDE: Normal. INTERPRETATION: The prebronchodilator spirometry is normal. Lung volumes are consistent with air trapping. Gas exchange (DLCO) is normal. MTDD
== END 2020-04-04 10:56 | disposition home or self-care (01) ==
LOC: RT 10:58
PROVIDERS: PCP Nurse Practitioner Family; Visit Provider Internal Medicine Pulmonary Disease
DX: R06.02 Shortness of breath (principal)
CPT/HCPCS: 94010; 94726; 94729

== ENCOUNTER → 2020-04-19 10:15 | Outpatient (BNVA) | payer MEDICAID, SELFPAY | PROVIDERS: PCP Nurse Practitioner Family; Visit Provider Anesthesiology | DX: G89.29 Other chronic pain (principal); M47.816 Spondylosis without myelopathy or radiculopathy, lumbar region; M54.9 Dorsalgia, unspecified; F17.220 Nicotine dependence, chewing tobacco, uncomplicated; Z79.891 Long term (current) use of opiate analgesic | CPT/HCPCS: 99213 ==

== ENCOUNTER 2020-05-21 14:41 | Outpatient (CLI) | payer MEDICARE, MEDICAID, SELFPAY ==
--- NOTE | 2020-05-21 15:00 | USCV_ITS ---
David Cisneros Age: 65 Gender: M : 1955 Exam Date: 05/21/2020 15:09 Ordering Phys: Oneil Wilson MD Technologist: Celine Rowell Exam Location[place] [facility] [place] Indication: EVAL LV FUNCTION BP: / HR: 73 Rhythm: Sinus Technical Quality: Adequate MEASUREMENTS (Male / Female) Normal Values 2D ECHO LV Diastolic Diameter PLAX 4.6 cm 4.2 - 5.9 / 3.9 - 5.3 cm LV Systolic Diameter PLAX 3.4 cm LV Chamber Size 3.6 cm IVS Diastolic Thickness 1.2 cm 0.6 - 1.0 / 0.6 - 0.9 cm IVS Systolic Thickness 1.6 cm LVPW Diastolic Thickness 1.0 cm 0.6 - 1.0 / 0.6 - 0.9 cm LVPW Systolic Thickness 1.3 cm RV Chamber Size 3.0 cm LVOT Diameter 2.0 cm LV Ejection Fraction 2D Teich 48.5 % LV Ejection Fraction MOD 2C 78.8 % LV Ejection Fraction 2C AL 80.1 % LA Diameter 3.2 cm LA Width 3.0 cm LA Height 4.5 cm RA Width 2.3 cm RA Height 3.2 cm Aorta at Sinotubular Diameter 2.6 cm M-MODE LV Diastolic Diameter MM 5.3 cm 4.2 - 5.9 / 3.9 - 5.3 cm LV Systolic Diameter MM 3.6 cm LV Ejection Fraction MM Teich 59.4 % IVS Diastolic Thickness MM 0.7 cm 0.6 - 1.0 / 0.6 - 0.9 cm IVS Systolic Thickness MM 1.4 cm LVPW Diastolic Thickness MM 0.9 cm 0.6 - 1.0 / 0.6 - 0.9 cm LVPW Systolic Thickness MM 1.3 cm RV Diastolic Diameter MM 2.5 cm Aortic Annulus Diameter 4.2 cm LA Ao Ratio MM 0.8 MV E Point Septal Separation 0.4 cm DOPPLER AV Peak Velocity 127.0 cm/s LVOT Peak Velocity 113.0 cm/s AV Area Cont Eq vti 2.5 cm squared AV Area Cont Eq pk 2.8 cm squared MV Area PHT 3.5 cm squared Mitral E to A Ratio 0.9 MV E' Velocity 49.0 cm/s Mitral E to MV E' Ratio 8.6 Mitral E to LV E' Lateral Ratio 6.4 Mitral E to LV E' Septal Ratio 13.1 TR Peak Velocity 264.9 cm/s TR Peak Gradient 28.1 mmHg TR Mean Velocity 211.9 cm/s TR Mean Gradient 19.1 mmHg TR Velocity Time Integral 72.4 cm TV Peak E Velocity 61.0 cm/s Right Atrial Pressure 3.0 mmHg Pulmonary Artery Systolic Pressu 31.1 mmHg PV Peak Velocity 88.0 cm/s FINDINGS Left Ventricle Normal left ventricular cavity size. Normal left ventricular systolic function. No regional wall motion abnormalities. Left ventricular ejection fraction is estimated at 59 %. Grade I/IV diastolic dysfunction (abnormal relaxation filling pattern), normal to mildly elevated filling pressures. Right Ventricle The right ventricle is normal in size and function. Right Atrium The right atrium is normal in size. Left Atrium The left atrium is normal in size. Mitral Valve Structurally normal mitral valve without significant stenosis or prolapse. There is no mitral regurgitation. Aortic Valve Structurally normal aortic valve without significant sclerosis or stenosis. There is no aortic regurgitation. Tricuspid Valve Structurally normal tricuspid valve without significant stenosis or regurgitation. Pulmonary artery systolic pressure is normal. Pulmonic Valve Structurally normal pulmonic valve without significant stenosis. There is no pulmonic regurgitation. Pericardium Normal pericardium without effusion. Aorta Normal ascending aorta dimension. CONCLUSIONS 1-Normal left ventricular cavity size. Normal left ventricular systolic function. No regional wall motion abnormalities. Left ventricular ejection fraction is estimated at 59 %. Grade I/IV diastolic dysfunction (abnormal relaxation filling pattern), normal to mildly elevated filling pressures. 2-No significant valve abnormalities. 3-There is no pericardial effusion. 4-Pulmonary artery systolic pressure is within normal limits. 5-Right atrial pressure is around 5 mm of mercury. 6-There are no prior echocardiogram studies to compare. Kaya Yan MD (Electronically Signed) Final Date: 21 May 2020 18:06 S
== END 2020-05-21 14:42 | disposition home or self-care (01) ==
LOC: US 14:42
PROVIDERS: PCP Nurse Practitioner Family; Visit Provider Internal Medicine Pulmonary Disease
DX: I51.9 Heart disease, unspecified (principal)
CPT/HCPCS: 93306

== ENCOUNTER 2020-06-05 20:00 | Outpatient (CLI) | payer MEDICARE, MEDICAID, SELFPAY | END 2020-06-05 20:01 | disposition home or self-care (01) | LOC: SLEEP 06-06 09:01 | PROVIDERS: PCP Nurse Practitioner Family; Visit Provider Internal Medicine Pulmonary Disease | DX: G47.33 Obstructive sleep apnea (adult) (pediatric) (principal) | CPT/HCPCS: 95810 ==

== ENCOUNTER → 2020-06-13 10:06 | Outpatient (BNVA) | payer OTHER, MEDICAID, SELFPAY | PROVIDERS: PCP Nurse Practitioner Family; Visit Provider Nurse Practitioner | DX: G89.29 Other chronic pain (principal); M54.42 Lumbago with sciatica, left side; M54.9 Dorsalgia, unspecified; F17.210 Nicotine dependence, cigarettes, uncomplicated; Z79.891 Long term (current) use of opiate analgesic; Z71.6 Tobacco abuse counseling | CPT/HCPCS: 99213; 99214 ==

== ENCOUNTER 2020-06-20 06:00 | Outpatient (CLI) | payer MEDICARE, MEDICAID, SELFPAY | END 2020-06-20 06:01 | disposition home or self-care (01) | LOC: SLEEP 07-21 13:25 | PROVIDERS: PCP Nurse Practitioner Family; Visit Provider Internal Medicine Nephrology | DX: N18.32 Chronic kidney disease, stage 3b (principal) | CPT/HCPCS: 80069; 82043; 83036; 85025 ==

== ENCOUNTER → 2020-06-27 14:12 | Outpatient (BNVA) | payer OTHER, MEDICAID, SELFPAY | PROVIDERS: PCP Nurse Practitioner Family; Visit Provider Nurse Practitioner Family | DX: N18.32 Chronic kidney disease, stage 3b (principal) | CPT/HCPCS: 83516; 83883; 84155; 84165; 86038; 86160 ==

== ENCOUNTER → 2020-07-10 13:54 | Outpatient (BNVA) | payer OTHER, MEDICAID, SELFPAY | PROVIDERS: PCP Nurse Practitioner Family; Visit Provider Anesthesiology | DX: G89.29 Other chronic pain (principal); M54.42 Lumbago with sciatica, left side; M47.816 Spondylosis without myelopathy or radiculopathy, lumbar region; M54.9 Dorsalgia, unspecified; F17.220 Nicotine dependence, chewing tobacco, uncomplicated; Z79.891 Long term (current) use of opiate analgesic | CPT/HCPCS: 99213 ==

== ENCOUNTER → 2020-07-24 10:43 | Outpatient (BNVA) | payer OTHER, MEDICAID, SELFPAY | PROVIDERS: PCP Nurse Practitioner Family; Visit Provider Internal Medicine Nephrology | DX: I12.9 Hypertensive chronic kidney disease with stage 1 through stage 4 chronic kidney disease, or unspecified chronic kidney disease (principal); N18.30 Chronic kidney disease, stage 3 unspecified | CPT/HCPCS: 80069; 82306; 85025 ==

== ENCOUNTER → 2020-09-20 12:55 | Outpatient (BNVA) | payer MEDICARE, MEDICAID, SELFPAY | PROVIDERS: PCP Nurse Practitioner Family; Visit Provider Nurse Practitioner | DX: G89.29 Other chronic pain (principal); M47.816 Spondylosis without myelopathy or radiculopathy, lumbar region; F17.220 Nicotine dependence, chewing tobacco, uncomplicated; Z79.891 Long term (current) use of opiate analgesic; Z71.6 Tobacco abuse counseling | CPT/HCPCS: 99214; 99406 ==

== ENCOUNTER → 2020-10-16 11:53 | Outpatient (BNVA) | payer MEDICARE, MEDICAID, SELFPAY | PROVIDERS: PCP Nurse Practitioner Family; Visit Provider Family Medicine | DX: E11.9 Type 2 diabetes mellitus without complications (principal); Z79.4 Long term (current) use of insulin; I50.30 Unspecified diastolic (congestive) heart failure | CPT/HCPCS: 83036; 83880 ==

== ENCOUNTER → 2020-11-13 13:57 | Outpatient (BNVA) | payer MEDICARE, MEDICAID, SELFPAY | PROVIDERS: PCP Nurse Practitioner Family; Visit Provider Nurse Practitioner | DX: G89.29 Other chronic pain (principal); M47.816 Spondylosis without myelopathy or radiculopathy, lumbar region; F17.220 Nicotine dependence, chewing tobacco, uncomplicated; Z79.891 Long term (current) use of opiate analgesic; Z71.6 Tobacco abuse counseling | CPT/HCPCS: 99214 ==

== ENCOUNTER 2021-01-08 15:28 | Outpatient (CLI) | payer MEDICARE, MEDICAID, SELFPAY ==
--- NOTE | 2021-01-08 15:39 | CT_ITS ---
WS: [id number] CT NECK WITHOUT CONTRAST. HISTORY: PAIN IN THROAT TECHNIQUE: Contiguous 5 mm axial images are performed through the neck without intravenous contrast. Sagittal and coronal reformats are also submitted. [facility] CT [facility] use at least on e of these dose optimization techniques: automated exposure control; mA and/or kV adjustment per jennifer ent size (includes targeted exams where dose is matched to clinical indication); or iterative reconst ruction. CONTRAST: CONTRAST: None DLP: 1160.87 mGycm COMPARISON: None available. There is some very minimal asymmetry of the RIGHT palatine tonsil. Very minimal thickening at the bas e of the uvula. This may be normal variation for this patient. Possibility of very early neoplasm aziza ng the RIGHT palatine tonsil is not excluded. Enlarged lymph nodes along the RIGHT cervical chain. The largest lymph node at level IIa measures 15 x 24 mm. Several abnormal enlarged lymph nodes at level IIa on the RIGHT. Additional RIGHT cervical c dru lymph nodes. Smaller bilateral cervical chain lymph nodes. No additional abnormality through the hypopharynx or glottis. Thyroid gland and salivary glands are normally enhancing with no masses. Mild cervical spondylosis. Mucoperiosteal thickening LEFT maxillary sinus. Lung apices are clear. CT/CT neck wo con [id number] IMPRESSION: 1. RIGHT level IIa lymphadenopathy with the largest lymph node measuring 15 x 24 mm. Additional smaller bilateral cervical chain lymph nodes are not patholog ic. PET/CT may be necessary for further evaluation. 2. Very mild asymmetry along the RIGHT palatine tonsil and at the base of the uvula. Cannot further evaluate without IV contrast. Direct visualization is str ongly recommended.
== END 2021-01-08 15:29 | disposition home or self-care (01) ==
PROVIDERS: PCP Nurse Practitioner Family; Visit Provider Specialist
DX: R07.0 Pain in throat (principal); R59.1 Generalized enlarged lymph nodes; G89.29 Other chronic pain; M47.816 Spondylosis without myelopathy or radiculopathy, lumbar region; Z71.6 Tobacco abuse counseling; Z79.891 Long term (current) use of opiate analgesic; F17.220 Nicotine dependence, chewing tobacco, uncomplicated
CPT/HCPCS: 70490; 99214

== ENCOUNTER 2021-01-28 11:03 | Outpatient (CLI) | payer MEDICARE, MEDICAID, SELFPAY ==
--- NOTE | 2021-01-28 11:21 | ECG_ITS ---
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 [id number]
== END 2021-01-28 11:04 | disposition home or self-care (01) ==
PROVIDERS: PCP Nurse Practitioner Family; Visit Provider Specialist
DX: D37.05 Neoplasm of uncertain behavior of pharynx (principal)
CPT/HCPCS: 93005

== ENCOUNTER → 2021-02-03 12:25 | Outpatient (BNVA) | payer MEDICARE, MEDICAID, SELFPAY | PROVIDERS: PCP Nurse Practitioner Family; Visit Provider Internal Medicine Nephrology | DX: N18.32 Chronic kidney disease, stage 3b (principal) | CPT/HCPCS: 80069; 82043; 82306; 82310; 83970; 85025 ==

== ENCOUNTER 2021-02-12 10:33 | Outpatient (CLI) | payer MEDICARE, MEDICAID, SELFPAY ==
[2021-02-14 11:05] LABS: Miscellaneous Test See Scanned Lab Rpt
== END 2021-02-12 10:34 | disposition home or self-care (01) ==
LOC: LAB 10:35
PROVIDERS: PCP Nurse Practitioner Family; Visit Provider Specialist
DX: R22.9 Localized swelling, mass and lump, unspecified (principal)
CPT/HCPCS: 88271; 88275; 88304; 88305

== ENCOUNTER → 2021-03-18 12:43 | Outpatient (BNVA) | payer MEDICARE, MEDICAID, SELFPAY | PROVIDERS: PCP Nurse Practitioner Family; Visit Provider Anesthesiology | DX: Z02.89 Encounter for other administrative examinations (principal); G89.29 Other chronic pain; M47.816 Spondylosis without myelopathy or radiculopathy, lumbar region; Z87.891 Personal history of nicotine dependence; Z79.891 Long term (current) use of opiate analgesic | CPT/HCPCS: 99213 ==

== ENCOUNTER 2021-04-28 12:25 | Outpatient (CLI) | payer MEDICARE, MEDICAID, SELFPAY ==
--- NOTE | 2021-04-28 13:35 | N.ONRAD NP_ITS ---
Radiation Oncology Consultation Patient Name: David Mota Date of : 1955 Date of Service: 04/28/2021 Attending Physician: Toi Mancini M.D. David Mota was seen in consultation this afternoon at the request of Charli Corea M.D. regarding head and neck radiotherapy for the management of a recently diagnosed oropharyngeal carcinoma. The patient was evaluated for a right tonsillar lesion and odynophagia in December 2020. A physical examination revealed an exophytic lesion of the right tonsil. CT imaging of the neck ordered on January 08, 2021 described minimal asymmetry of the right palatine tonsil and several enlarged lymph nodes within the right cervical chain. The largest lymph node measured 1.5 cm x 2.4 cm located at level IIA. A bilateral tonsillectomy was performed by Charli Corea M.D. on February 12, 2021. The right tonsillectomy specimen demonstrated an invasive, nonkeratinizing squamous cell carcinoma (P63 positive). A fine-needle aspiration of an enlarged right jugulodigastric lymph node completed on February 18, 2021 demonstrated a necroinflammatory process with rare dyskeratotic cells highly suspicious for metastatic carcinoma. He was evaluated at [facility] in [place], [place] by Sharlene Dow M.D. A revision right radical tonsillectomy with right neck dissection was recommended if metastatic disease was not identified on PET imaging. A PET scan ordered on April 10, 2021 reported FDG activity within the right tonsillar fossa (SUV 11.9) without evidence of lymphadenopathy nor systemic disease. The patient was evaluated for head and neck radiotherapy. I discussed with Mr. 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 A surgical consultation has been requested. If the patient is not considered a surgical candidate, I would recommend a 7 week course of radiation therapy. He will require a pre-radiotherapy dental evaluation and I have requested a surgical consultation for a PEG tube placement to be scheduled prior to implementing therapy. A CT scan with contrast for radiotherapy planning scan in the treatment position will be acquired and co-registered to the staging PET CT scan to identify the gross tumor volumes (primary mass and hypermetabolic lymph nodes). The potential toxicities of head and neck radiotherapy were reviewed. He has verbalized understanding would like to proceed as recommended. The patient's medical treatment has been discussed with Charli Corea M.D. Signed by: Dr. Toi Mancini 04/28/2021 1:48:57 PM
== END 2021-04-28 12:26 | disposition home or self-care (01) ==
PROVIDERS: PCP Nurse Practitioner Family; Referring Provider Specialist; Visit Provider Radiology Radiation Oncology
DX: C10.8 Malignant neoplasm of overlapping sites of oropharynx (principal); C77.0 Secondary and unspecified malignant neoplasm of lymph nodes of head, face and neck; R13.13 Dysphagia, pharyngeal phase
CPT/HCPCS: 99205

== ENCOUNTER → 2021-05-12 10:40 | Outpatient (BNVA) | payer MEDICARE, MEDICAID, SELFPAY | PROVIDERS: PCP Nurse Practitioner Family; Visit Provider Nurse Practitioner Family | DX: Z20.822 Contact with and (suspected) exposure to COVID-19 (principal); Z11.52 Encounter for screening for COVID-19 | CPT/HCPCS: 87635; 87801 ==

== ENCOUNTER → 2021-05-15 08:34 | Outpatient (BNVA) | payer MEDICARE, MEDICAID, SELFPAY | PROVIDERS: PCP Nurse Practitioner Family; Visit Provider Nurse Practitioner Family | DX: E11.9 Type 2 diabetes mellitus without complications (principal); Z79.4 Long term (current) use of insulin; E78.2 Mixed hyperlipidemia; E55.9 Vitamin D deficiency, unspecified; N18.32 Chronic kidney disease, stage 3b | CPT/HCPCS: 81003; 82043; 83036; 85025 ==

== ENCOUNTER 2021-07-16 09:10 | Outpatient (CLI) | payer MEDICARE, MEDICAID, SELFPAY ==
--- NOTE | 2021-07-16 09:28 | CT_ITS ---
WS: [id number] CT NECK TECHNIQUE: Contrast-enhanced CT of the neck with coronal and sagittal reformatted images. CLINICAL INFORMATION: MALIGNANT NEOPLASM OF TONSILLAR FOSSA COMPARISON: January 08, 2021 DLP: 525.[address] scans at [facility] use at least one of these dose optimization techniques: automated e xposure control; mA and/or kV adjustment per patient size (includes targeted exams where dose is matc hed to clinical indication); or iterative reconstruction. FINDINGS: Since the prior examination, interval postoperative changes tonsillectomy with resection of the tonsi llar carcinoma. Normal tonsillar fossa today. Normal parapharyngeal fat. No evidence of local recurre nce in the tonsillar bed. Normal tongue base. Normal uvula. Normal vallecula and piriform sinuses. No rmal epiglottis. Normal glottis. Normal subglottic airway. RIGHT neck lymph node dissection is new compared to previous. Resection and/or resolution of the prev iously described RIGHT cervical lymphadenopathy. No suspicious lymphadenopathy today. No evidence of recurrence. Mild spondylitic changes cervical spine. Disc osteophyte complex C5-C6 and C6-C7. Paranasal sinuses a re well aerated. Mastoid air cells are well aerated. Partially visualized intracranial contents are n ormal for age. Mastoid air cells are well aerated. Paranasal sinuses are well aerated. Small retentio n cysts in the maxillary sinuses largest on the RIGHT measuring 15 mm. Normal pterygopalatine fossa. 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 Lung apices are well aerated. Dense carotid bulb calcificatio n. CT/CT neck w con* [id number] IMPRESSION: 1. Interval postoperative changes tonsillectomy and RIGHT cervical lymph node dissection. 2. No evidence of recurrence in the tonsillar bed. No cervical lymphadenopathy . 3. Normal salivary glands. 4. No evidence of supraglottic or glottic mass. 5. No other suspicious findings.
[2021-07-16 11:29] LABS: Alanine Aminotransferase 65 U/L (0-41); Albumin Level 4.3 g/dL (3.5-5.2); Alkaline Phosphatase 98 IU/L (40-130); Anion Gap 16.7 (5-19); Aspartate Amino Transferase 51 U/L (0-40); Blood Urea Nitrogen 25 mg/dL (8-23); Calcium 9.3 mg/dL (8.5-10.5); Carbon Dioxide 21 mmol/L (22-29); Chloride 98 mmol/L (98-107); Chol HDL Ratio 5.42 mg/dL (1.0-5.00); Cholesterol 168 mg/dL (0-200); Globulin 3.3 g/dL (1.3-4.6); Glucose 453 mg/dL (65-115); HDL Cholesterol 31 mg/dL (60-100); Osmolality Calculated 296 mOsm/kg (285-295); Potassium 4.7 mmol/L (3.5-5.1); Sodium 131 mmol/L (136-145); Thyroid Stimulating Hormone 0.76 uIU/mL (0.27-4.20); Total Bilirubin 0.6 mg/dL (0.15-1.2); Total Protein 7.6 g/dL (6.6-8.7); Triglycerides 422 mg/dL (0-150)
[2021-07-16 12:21] LABS: LDL Cholesterol Direct 90 mg/dL (0-100)
[2021-07-16] MEDS: iohexol 300 mg/mL 100 mL Btl IV (12:27)
[2021-07-16 12:37] LABS: 25 Hydroxy Vitamin D 31 ng/mL (30-100)
== END 2021-07-16 09:11 | disposition home or self-care (01) ==
LOC: RAD 09:13
PROVIDERS: PCP Nurse Practitioner Family; Visit Provider Specialist
DX: C09.0 Malignant neoplasm of tonsillar fossa (principal); E55.9 Vitamin D deficiency, unspecified; I10 Essential (primary) hypertension; E11.9 Type 2 diabetes mellitus without complications; E78.2 Mixed hyperlipidemia; Z79.4 Long term (current) use of insulin
CPT/HCPCS: 70491; 80053; 80061; 82306; 83721; 84443

== ENCOUNTER → 2021-08-13 13:08 | Outpatient (BNVA) | payer MEDICARE, MEDICAID, SELFPAY | PROVIDERS: PCP Nurse Practitioner Family; Visit Provider Internal Medicine Nephrology | DX: N18.32 Chronic kidney disease, stage 3b (principal) | CPT/HCPCS: 80069; 82043; 82310; 83970; 85025 ==

== ENCOUNTER → 2021-12-23 10:18 | Outpatient (BNVA) | payer MEDICARE, MEDICAID, SELFPAY | PROVIDERS: PCP Nurse Practitioner Family; Visit Provider Family Medicine | DX: I10 Essential (primary) hypertension (principal); E11.9 Type 2 diabetes mellitus without complications; Z79.4 Long term (current) use of insulin; C11.9 Malignant neoplasm of nasopharynx, unspecified | CPT/HCPCS: 80053; 83036; 85025 ==

== ENCOUNTER → 2022-03-20 10:25 | Outpatient (BNVA) | payer MEDICARE, MEDICAID, SELFPAY | PROVIDERS: PCP Family Medicine; Visit Provider Internal Medicine Nephrology | DX: N18.32 Chronic kidney disease, stage 3b (principal) | CPT/HCPCS: 80069; 82043; 82542; 85025 ==

== ENCOUNTER → 2022-04-23 12:35 | Outpatient (BNVA) | payer MEDICARE, MEDICAID, SELFPAY | PROVIDERS: PCP Family Medicine; Referring Provider Internal Medicine Nephrology; Visit Provider Internal Medicine | DX: E11.22 Type 2 diabetes mellitus with diabetic chronic kidney disease (principal); N18.32 Chronic kidney disease, stage 3b; E78.2 Mixed hyperlipidemia; Z79.4 Long term (current) use of insulin; Z79.84 Long term (current) use of oral hypoglycemic drugs | CPT/HCPCS: 99204 ==

== ENCOUNTER → 2022-05-26 10:35 | Outpatient (BNVA) | payer MEDICARE, MEDICAID, SELFPAY | PROVIDERS: PCP Family Medicine; Visit Provider Internal Medicine | DX: E11.9 Type 2 diabetes mellitus without complications (principal); E78.2 Mixed hyperlipidemia; Z79.4 Long term (current) use of insulin; Z79.84 Long term (current) use of oral hypoglycemic drugs | CPT/HCPCS: 99214 ==

== ENCOUNTER → 2022-07-28 12:39 | Outpatient (BNVA) | payer MEDICARE, MEDICAID, SELFPAY | PROVIDERS: PCP Family Medicine; Visit Provider Internal Medicine | DX: E11.9 Type 2 diabetes mellitus without complications (principal); E78.2 Mixed hyperlipidemia; Z79.4 Long term (current) use of insulin; Z79.84 Long term (current) use of oral hypoglycemic drugs | CPT/HCPCS: 99214 ==

== ENCOUNTER → 2022-08-31 10:42 | Outpatient (BNVA) | payer MEDICARE, MEDICAID, SELFPAY | PROVIDERS: PCP Family Medicine; Visit Provider Internal Medicine Nephrology | DX: E55.9 Vitamin D deficiency, unspecified (principal); I10 Essential (primary) hypertension; N18.32 Chronic kidney disease, stage 3b; N28.9 Disorder of kidney and ureter, unspecified; E11.9 Type 2 diabetes mellitus without complications | CPT/HCPCS: 80069; 82043; 82306; 82542 ==

== ENCOUNTER → 2022-10-26 10:24 | Outpatient (BNVA) | payer MEDICARE, MEDICAID, SELFPAY | PROVIDERS: PCP Family Medicine; Visit Provider Internal Medicine | DX: E11.9 Type 2 diabetes mellitus without complications (principal); Z79.4 Long term (current) use of insulin; N18.32 Chronic kidney disease, stage 3b; I10 Essential (primary) hypertension; E55.9 Vitamin D deficiency, unspecified | CPT/HCPCS: 80053; 80061; 82043; 83036 ==

== ENCOUNTER → 2022-11-03 08:37 | Outpatient (BNVA) | payer MEDICARE, MEDICAID, SELFPAY | PROVIDERS: PCP Family Medicine; Visit Provider Internal Medicine | DX: E11.9 Type 2 diabetes mellitus without complications (principal); Z79.4 Long term (current) use of insulin; E78.2 Mixed hyperlipidemia | CPT/HCPCS: 99214 ==

== ENCOUNTER → 2023-03-11 10:34 | Outpatient (BNVA) | payer MEDICARE, MEDICAID, SELFPAY | PROVIDERS: PCP Family Medicine; Visit Provider Internal Medicine | DX: E78.2 Mixed hyperlipidemia (principal); E11.9 Type 2 diabetes mellitus without complications; Z79.4 Long term (current) use of insulin | CPT/HCPCS: 80053; 80061; 82043; 83036 ==

== ENCOUNTER → 2023-03-16 08:23 | Outpatient (BNVA) | payer MEDICARE, MEDICAID, SELFPAY | PROVIDERS: PCP Family Medicine; Visit Provider Internal Medicine | DX: E11.9 Type 2 diabetes mellitus without complications (principal); Z79.4 Long term (current) use of insulin; E78.2 Mixed hyperlipidemia; Z79.84 Long term (current) use of oral hypoglycemic drugs | CPT/HCPCS: 99214 ==

== ENCOUNTER → 2023-07-12 11:42 | Outpatient (BNVA) | payer MEDICARE, MEDICAID, SELFPAY | PROVIDERS: PCP Family Medicine; Visit Provider Internal Medicine | DX: E11.9 Type 2 diabetes mellitus without complications (principal); Z79.4 Long term (current) use of insulin; E78.2 Mixed hyperlipidemia; Z79.84 Long term (current) use of oral hypoglycemic drugs | CPT/HCPCS: 36415; 80053; 80061; 82044; 83036; 99214 ==

== ENCOUNTER → 2023-09-10 10:51 | Outpatient (BNVA) | payer MEDICARE, MEDICAID, SELFPAY | PROVIDERS: PCP Family Medicine; Visit Provider Nurse Practitioner Family | DX: L08.9 Local infection of the skin and subcutaneous tissue, unspecified (principal) | CPT/HCPCS: 73630 ==

== ENCOUNTER 2023-09-13 10:44 | Inpatient (IN) | payer MEDICARE, MEDICAID, SELFPAY ==
[2023-09-13 11:16] VITALS: BP 179/72; PULSE 77; RESP 17; TEMP 36.6; O2SAT 97; BMI 31.1
--- NOTE | 2023-09-13 12:26 | XRR_ITS ---
PROCEDURE INFORMATION: Exam: XR Left Foot Exam date and time: 09/13/2023 12:37 PM Age: 68 years old Clinical indication: Pain; Foot; Left; Additional info: Infection TECHNIQUE: Imaging protocol: Radiologic exam of the left foot. Views: 3 or more views. COMPARISON: CR XR foot LT min 3V* [id number] 09/10/2023 11:50 AM FINDINGS: Bones/joints: Normal. Soft tissues: Normal. XR/XR foot LT min 3V* [id number] IMPRESSION: No acute findings.
--- NOTE | 2023-09-13 13:08 | ED_ITS ---
HPI - Extremity Problem General: Chief complaint: Skin/Abscess/Foreign Body Stated complaint: left foot toe--diabetic--[facility] sent over Time Seen by Provider: 09/13/23 13:05 Source: patient Mode of arrival: ambulatory Limitations: no limitations History of Present Illness: Patient is a 68-year-old male with a history of hyperlipidemia, chronic kidney disease, uncontrolled diabetes, HTN, BPH here for complaints of a left foot infection. States symptoms have been present for the past 4-5 days. He has been on Doxycycline and Augmentin since Wednesday and symptoms are not improving. States he was at [employer] walking around prior to symptoms starting-was wearing footware. No fevers but he does endorse chills. States his blood sugars normally run 200-300s. He was sent from [facility] after consultation with Dr. Cordon. Complaint: extremity pain, extremity swelling, joint swelling and joint pain Onset (ago): day(s) Pain Consistency: constant Location: left and lower extremity Radiation: none Relieving factors: nothing Exacerbating factors: nothing Associated symptoms: Reports no associated symptoms; Deny fever(s) Review of Systems Const: Reports: chills; Denies: fever(s), body aches, fatigue or malaise Resp: Denies: dyspnea GI: Denies: abdominal pain, nausea or vomiting Musc: Reports: extremity swelling (L foot), joint pain (L great toe) and joint swelling (L great toe); Denies: neck pain or back pain Neuro: Denies: numbness in extremities, weakness in extremities or sensory changes PFS ED PFSH: Medical History Cellulitis of left foot Foot infection Infection of left foot 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 BPH (benign prostatic hyperplasia) Environmental and seasonal allergies Mixed hyperlipidemia Chronic kidney disease (CKD) stage G3b/A3, moderately decreased glomerular filtration rate (GFR) between 30-44 mL/min/1.73 square meter and albuminuria creatinine ratio greater than 300 mg/g Vitamin D deficiency Diabetes mellitus, type II Osteoarthritis of lumbar spine Arthralgia of lumbar spine Encounter for long-term opiate analgesic use Essential hypertension, benign Surgical History Hx of tonsillectomy Hx of appendectomy Family History Mother Diabetes Brother Heart problem has 2 brothers with pacemakers Grandfather Cancer Other Chewing tobacco use Social History Smoking and tobacco/nicotine status: current every day tobacco/nicotine user smokeless tobacco Smokeless tobacco user: chewing tobacco Smokeless tobacco details: 1 can every 2- 3 days Quit status (tobacco/nicotine): has quit using Year quit tobacco: 2016 Former quit date comment: 1ppd x 30 years Second hand smoke exposure: Yes Alcohol intake: never Substance/Drug Use: never Lives independently: Yes Household members: family Housing: House Marital status: Single service: No Current occupational status: disabled Pets and animals: Yes Do you think of yourself as: Straight/Heterosexual Current gender identity: Male Physical Exam Const: COMMON NORMALS: patient oriented x3, no limitations, alert and well nourished GENERAL APPEARANCE: cooperative ORIENTATION/CONSCIOUSNESS: Yes awake, Yes oriented to person, Yes oriented to place and Yes oriented to time Resp: COMMON NORMALS: normal respiratory effort and clear to auscultation bilaterally AUSCULTATION: clear to auscultation bilaterally Cardio: COMMON NORMALS: regular rate and regular rhythm RATE: regular rate RHYTHM: regular rhythm Extremity: COMMON NORMALS: no calf tenderness GENERAL: Yes normal exam except as noted LEFT LOWER EXTREMITY: Yes foot & digits (significant erythema/edema and abscess to L great toe) Left foot and digits: Yes inspection (edema dorsal L foot and throughout L great toe) and Yes neurovascular exam (normal) Neuro: COMMON NORMALS: patient oriented x3, moves all extremities, no focal motor deficits and no sensory deficits noted SENSORIUM/ORIENTATION: Yes alert, Yes oriented to person, Yes oriented to place and Yes oriented to time Course Consultations: Consultation #1: Dr. Cordon-recommends admission to hospitalist, planning on MRI and surgical debridement Consultation #2: Dr. Gary-accepts hospitalization Vital Signs: Vital signs: Vital Signs Temperature 97.9 F 09/13/23 11:16 Pulse Rate 77 09/13/23 11:16 Respiratory Rate 17 09/13/23 11:16 Blood Pressure 179/72 09/13/23 11:16 Pulse Oximetry 97 09/13/23 11:16 Oxygen Delivery Me thod Room Air 09/13/23 11:16 MDM - Extremity (Nontraumatic) Medical Decision Making Patient is a 68-year-old uncontrolled diabetic male here for a left great toe/foot infection that has failed outpatient therapy. Plan is for admission to hospitalist with podiatry to consult with plan for surgical debridement. Medical Records I reviewed the patient's medical records. Lab Data I reviewed the patient's lab results. Radiology Impressions Foot X-Ray 09/13/23 12:26 IMPRESSION: No acute findings. All radiology interpretation(s) finalized by discharge Discharge Plan Discharge Patient Disposition: Admitted As Inpatient Clinical Impression: Abscess of great toe of left foot, Uncontrolled diabetes mellitus, Diabetic infection of left foot, Failure of outpatient treatment Condition: Stable Prescriptions: No Action hydrocodone-acetaminophen 10-325 mg tablet 1 tab PO .6 times a day PRN (Reason: pain) 30 Days Qty: 180 0RF Rx Instructions: Fill on or after 03/26/21 hydrocodone-acetaminophen 10-325 mg tablet 1 tab PO Q4H PRN (Reason: pain) 30 Days Qty: 180 0RF Rx Instructions: fill on or after 04/25/21 Ozempic 0.25 mg or 0.5 mg(2 mg/1.5 mL) pen injector 0.25 mg SUBCUT .weekly 30 Days Qty: 1.5 1RF aspirin [[place] Low Dose Aspirin] 81 mg tablet,delayed release (DR/EC) 81 mg PO DAILY Rx Instructions: pt states he takes this medication but unsure when he took amlodipine 5 mg tablet 5 mg PO DAILY Qty: 90 3RF doxycycline hyclate 100 mg tablet 100 mg PO BID 10 Days Qty: 20 0RF amoxicillin-pot clavulanate 875-125 mg tablet 1 tab PO BID 10 Days Qty: 20 0RF (DME) FreeStyle Jesse 2 [place] Misc See Rx Instructions .Route Qty: 1 2RF Rx Instructions: as directed ergocalciferol (vitamin D2) 1,250 mcg (50,000 unit) capsule See Rx Instructions .ROUTE .COMPLEX Qty: 4 0RF Dose Instruction: TAKE ONE CAPSULE BY MOUTH ONCE A WEEK Rx Instructions: TAKE ONE CAPSULE BY MOUTH ONCE A WEEK lancets [OneTouch Delica Plus Lancet] 30 gauge misc See Rx Instructions .ROUTE .COMPLEX Qty: 100 5RF Dose Instruction: USE DIRECTED THREE TIMES DAILY Rx Instructions: USE DIRECTED THREE TIMES DAILY Bevespi Aerosphere 9-4.8 mcg HFA aerosol inhaler 2 puff inhalation BID Qty: 10.7 3RF tizanidine 4 mg tablet 8 mg PO .QHS PRN (Reason: muscle spasticity) Qty: 60 1RF Rx Instructions: Take 1 or 2 tabs at bedtime OneTouch Verio test strips Strip See Rx Instructions .ROUTE .COMPLEX Qty: 100 5RF Dose Instruction: use to check blood sugar before meals and at bedtime Rx Instructions: use to check blood sugar before meals and at bedtime lisinopril 40 mg tablet See Rx Instructions .ROUTE .COMPLEX Qty: 90 3RF Dose Instruction: TAKE 1 TABLET BY MOUTH EVERY DAY Rx Instructions: TAKE 1 TABLET BY MOUTH EVERY DAY hydroxyzine HCl 25 mg tablet See Rx Instructions .ROUTE .COMPLEX Qty: 30 0RF Dose Instruction: TAKE 1 TABLET BY MOUTH TWICE DAILY NEEDED FOR INSOMNIA Rx Instructions: TAKE 1 TABLET BY MOUTH TWICE DAILY NEEDED FOR INSOMNIA (DME) pen needle, diabetic [Comfort EZ Pen [place]] 32 gauge x 5/32 needle See Rx Instructions .ROUTE .COMPLEX Qty: 100 6RF Dose Instruction: USE DAILY WITH LEVEMIR DIRECTED Rx Instructions: as directed insulin lispro 100 unit/mL insulin pen See Rx Instructions .ROUTE .COMPLEX Qty: 30 5RF Dose Instruction: INJECT 30 UNITS subcutaneously three times daily As Needed for type 2 diabetes, Max Daily Dose: 120 units Rx Instructions: INJECT 30 UNITS subcutaneously three times daily As Needed for type 2 diabetes, Max Daily Dose: 120 units (DME) FreeStyle Jesse 2 Sensor Kit See Rx Instructions .ROUTE .COMPLEX Qty: 6 1RF Dose Instruction: USE TO monitor BLOOD SUGAR Rx Instructions: USE TO monitor BLOOD SUGAR metformin 1,000 mg tablet 1,000 mg PO BID 30 Days Qty: 60 0RF atorvastatin 20 mg tablet See Rx Instructions .ROUTE .COMPLEX Qty: 60 0RF Dose Instruction: TAKE 1 TABLET BY MOUTH EVERY DAY Rx Instructions: TAKE 1 TABLET BY MOUTH EVERY DAY Tresiba FlexTouch U-200 200 unit/mL (3 mL) insulin pen See Rx Instructions .ROUTE .COMPLEX Qty: 46 0RF Dose Instruction: INJECT 96 UNITS SUB-Q DAILY Rx Instructions: INJECT 96 UNITS SUB-Q DAILY multivitamin Capsule 1 cap PO DAILY Referrals: Yong Garland MD [Primary Care Provider] - Coding Level of Care Code ED Senior Sales Assistant for Chg Zule[facility]
--- NOTE | 2023-09-13 14:03 | P.CONIM_ITS ---
Providers/Reason For Consult 2 Consulting Physician/Specialty*: Agus Cordon D.P.M./podiatry Reason for Consult*: Diabetic foot infection with cellulitis left foot Primary Care Provider: Yong Garland MD History of Present Illness History of Present Illness David Mota is a 68 year old male directed to the emergency department after having failed outpatient antibiotics for left diabetic foot infection. He initially observed a wound last week after a trip to [employer] where he was waiting in a [place], states he was wearing shoes. Shortly thereafter he got redness and had a blister that needed to pop. He was placed on doxycycline and Augmentin on Wednesday, September 10, 2023, returns to clinic for reevaluation Wednesday today 09/13/2023 without improvement and was directed to the emergency department for hospital admission for empiric IV antibiotics MRI and surgical debridement. Review of Systems 2 General: Reports: 10 or more systems reviewed and unremarkable except in HPI and below Const: Denies: fever(s) or chills Eyes: Denies: change in vision Card: Denies: chest pain or palpitations Resp: Denies: dyspnea or productive cough GI: Denies: abdominal pain, nausea or vomiting : Denies: flank pain Musc: Reports: extremity swelling, joint stiffness and deformity Skin/Breast: Reports: erythema, sores, changes in skin color, dry skin, nail changes and change in hair Neuro: Reports: numbness in extremities, sensory changes and difficulty walking Psych: Denies: suicidal ideation Endo: Denies: change in body appearance Aaron/Lymph: Denies: tender lymph nodes Medications/Allergies Home Medications Medication Instructions Recorded Confirmed Last Taken Type aspirin 81 mg tablet,delayed 81 mg PO DAILY 03/28/19 09/13/23 09/12/23 History release ([place] Low Dose Aspirin) hydrocodone 10 mg-acetaminophen 1 tab PO Q4H PRN pain 30 days #180 03/18/21 09/13/23 09/13/23 Rx 325 mg tablet tabs flash glucose scanning reader #1 ea 07/28/22 09/13/23 Unknown Rx (FreeStyle Jesse 2 [place]) pen needle, diabetic 32 gauge x #100 ea 09/23/22 09/13/23 Unknown Rx (Comfort EZ Pen [place]) insulin lispro 100 unit/mL See Rx Instructions .Route 08/09/13/23 09/13/23 Rx subcutaneous pen .COMPLEX #30 mL flash glucose sensor (FreeStyle #6 kits 04/20/23 09/13/23 Unknown Rx Jesse 2 Sensor kit) metformin 1,000 mg tablet 1,000 mg PO BID 30 days #60 tabs 07/27/23 09/13/23 09/12/23 Rx insulin degludec 200 unit/mL (3 See Rx Instructions .Route 08/30/23 09/13/23 09/12/23 Rx mL) subcutaneous pen (Tresiba .COMPLEX #46 mL FlexTouch U-200 insulin) amoxicillin 875 mg-potassium 1 tab PO BID 10 days #20 tabs 09/10/23 09/13/23 09/13/23 Rx clavulanate 125 mg tablet doxycycline hyclate 100 mg tablet 100 mg PO BID 10 days #20 tabs 09/10/23 09/13/23 09/13/23 Rx amlodipine 10 mg tablet 10 mg PO DAILY 09/13/23 09/13/23 09/12/23 History atorvastatin 20 mg tablet 20 mg PO DAILY 09/13/23 09/13/23 09/12/23 History ergocalciferol (vitamin D2) 1,250 1,250 mcg PO Q7D 09/13/23 09/13/23 Unknown History mcg (50,000 unit) capsule hydroxyzine HCl 25 mg tablet 25 mg PO BID PRN Insomnia 09/13/23 09/13/23 Unknown History tizanidine 4 mg tablet 4 - 8 mg PO BEDTIME PRN muscle 09/13/23 09/13/23 Unknown History spasticity Allergies Allergy/AdvReac Type Severity Reaction Status Date / Time morphine Allergy UPSET GI Verified 09/13/23 08:52 tramadol AdvReac rapid Verified 09/13/23 08:52 heart rate PFSH Acute 2 PFSH: Medical History Cellulitis of left foot Foot infection Infection of left foot 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 BPH (benign prostatic hyperplasia) Environmental and seasonal allergies Mixed hyperlipidemia Chronic kidney disease (CKD) stage G3b/A3, moderately decreased glomerular filtration rate (GFR) between 30-44 mL/min/1.73 square meter and albuminuria creatinine ratio greater than 300 mg/g Vitamin D deficiency Diabetes mellitus, type II Osteoarthritis of lumbar spine Arthralgia of lumbar spine Encounter for long-term opiate analgesic use Essential hypertension, benign Surgical History Hx of tonsillectomy Hx of appendectomy Family History Mother Diabetes Brother Heart problem has 2 brothers with pacemakers Grandfather Cancer Other Chewing tobacco use Social History Smoking and tobacco/nicotine status: current every day tobacco/nicotine user smokeless tobacco Smokeless tobacco user: chewing tobacco Smokeless tobacco details: 1 can every 2- 3 days Quit status (tobacco/nicotine): has quit using Year quit tobacco: 2016 Former quit date comment: 1ppd x 30 years Second hand smoke exposure: Yes Alcohol intake: never Substance/Drug Use: never Lives independently: Yes Household members: family Housing: House Marital status: Single service: No Current occupational status: disabled Pets and animals: Yes Do you think of yourself as: Straight/Heterosexual Current gender identity: Male Vitals/I&O/Wt Last Vital Signs Temp 97.9 F 09/13/23 11:16 Pulse 77 09/13/23 11:16 Resp 17 09/13/23 11:16 BP 179/72 09/13/23 11:16 Pulse Ox 97 09/13/23 11:16 O2 Del Method Room Air 09/13/23 11:16 Weight last 48 hrs Weight 230 lb Physical Exam 2 Narrative: GENERAL: Patient is alert and oriented ?3 and in no acute distress. The following is a focused bilateral lower extremity exam. VASCULAR: Dorsalis pedis palpable +2 bilaterally, posterior tibial arteries palpable +2. Capillary refill time less than 3 seconds to the distal hallux bilaterally. Calf is supple and nontender proximally and distally. Decrease in pedal hair growth bilaterally. NEUROLOGICAL: Protective sensation intact 0/10 sites, tested with [place] monofilament to bilateral feet. DERMATOLOGICAL: [place] grade 2 wound at the dorsum and plantar aspect of the left hallux at the level of the interphalangeal joint with periwound erythema and proximal streaking to the level of the forefoot. MUSCULOSKELETAL: No crepitus with soft tissue palpation and no pain to palpation or with debridement secondary to neuropathy. Data 09/13/23 13:57 09/13/23 13:57 A&P Assessment and plan (1) Diabetic peripheral neuropathy associated with type 2 diabetes mellitus: (2) Non-pressure chronic ulcer of other part of left foot with fat layer exposed: PROCEDURE: Full thickness wound debridement Location: Left great toe Local Anesthesia: none due to neuropathy Consent: Verbal Sterile Prep: with alcohol Details: Full thickness sharp debridement of the wound was performed using sterile dermal curette. The wound was debrided of hyperkeratotic rim and devitalized and fibrotic tissue down to subcutaneous tissue, being the deepest level of debridement. Predebridement measurements: 0.3 cm x 0.6 cm x 0.2 cm Postdebridement measurements: 0.4 cm x 0.7 cm x 0.2 cm Hemostasis: Pressure Irrigation: sterile saline Dressing: Betadine wet-to-dry Estimated Blood Loss: minimal Offloading: Nonweightbearing (3) Cellulitis of left foot: Plan 68-year-old diabetic male with peripheral neuropathy presents with [place] grade 2 ulcer left great toe and cellulitis streaking to the left forefoot, failed outpatient oral antibiotics 3 days of doxycycline and Augmentin. . A1c 9.9 July 12, 2023 WBC 9.62 ESR 31 CRP 59.5 mg/L X-ray negative for osteomyelitis, negative for soft tissue gas and negative for foreign body left foot. Recommend admission to hospital service for empiric IV antibiotics, MRI and likely surgical debridement. Concern for acute osteomyelitis requiring MRI with and without contrast, will await improved kidney function with fluids and then when appropriate order MRI of the left forefoot utilizing forefoot protocol to rule out acute osteomyelitis of the left great toe also rule out abscess and septic joint. Will await MRI findings, tentatively anticipating surgical debridement Excisional wound debridement performed left great toe, postdebridement wound culture taken of the left great toe sent to microbiology for Gram stain, culture and sensitivity Nonweightbearing left foot Betadine wet-to-dry dressing Podiatry will follow Consult Attestations 2 Medical Necessity Statement: Cellulitis left lower extremity secondary to diabetic foot infection, failed broad-spectrum oral antibiotics outpatient for greater than 3 days requiring hospital admission for IV antibiotics, MRI and surgical debridement for limb salvage efforts. Coding Level of Care Code Acute Code for [facility] Fwd Diagnoses Diabetic peripheral neuropathy associated with type 2 diabetes mellitus E11.42 Non-pressure chronic ulcer of other part of left foot with fat layer exposed L97.522 Cellulitis of left foot L03.116
[2023-09-13 14:12] LABS: Basophils # 0.1 10^3/uL (0.0-0.1); Basophils % 0.6 %; Eosinophils # 0.3 10^3/uL (0.0-0.8); Eosinophils % 2.8 %; Hematocrit 39.5 % (37-53); Lymphocytes # 3.5 10^3/uL (0.8-4.8); Lymphocytes % 36.8 %; Mean Corpuscular HGB Conc 32.2 g/dL (30-55); Mean Corpuscular Volume 93.4 fl (82-101); Mean Platelet Volume 9.5 fL (7.4-10.4); Monocytes # 0.7 10^3/uL (0.2-0.9); Monocytes % 7.3 %; Neutrophils # 5.03 10^3/uL (1.8-7.7); Neutrophils % 52.3 %; Nucleated Red Blood Cells % 0 %; Platelet Count 252 10^3/cmm (157-399); Red Blood Count 4.23 10^6/uL (3.85-5.65); White Blood Count 9.62 10^3/uL (3.29-11.43)
[2023-09-13 14:20] LABS: Erythrocyte Sedimentation Rate 31 mm/hr (0-10)
[2023-09-13 14:37] LABS: Alanine Aminotransferase 13 U/L (0-41); Albumin Level 3.8 g/dL (3.5-5.2); Alkaline Phosphatase 76 U/L (40-130); Anion Gap 16.3 (5-19); Aspartate Amino Transferase 17 U/L (0-40); Blood Urea Nitrogen 27 mg/dL (8-23); C Reactive Protein 59.5 mg/L (0.0-4.9); Calcium 9.4 mg/dL (8.5-10.5); Carbon Dioxide 22 mmol/L (22-29); Chloride 104 mmol/L (98-107); Creatinine Clr Calc Pharmacy 64.8164; Globulin 4.1 g/dL (1.3-4.6); Glomerular Filtration Rate 50.7 mL/min (90-130); Glucose 251 mg/dL (65-115); Osmolality Calculated 298 mOsm/kg (285-295); Potassium 5.3 mmol/L (3.5-5.1); Sodium 137 mmol/L (136-145); Total Bilirubin 0.4 mg/dL (0.15-1.2); Total Protein 7.9 g/dL (6.6-8.7)
[2023-09-13 15:24] VITALS: PULSE 70; O2SAT 98
--- NOTE | 2023-09-13 15:24 | PC.NURSE ---
attempted iv x2, us attempt by other nurse now.
[2023-09-13] MEDS: vancomycin 1,000 MG in sodium chloride 0.9% 250 ML 250 MG IV (16:00)
--- NOTE | 2023-09-13 16:08 | PM.HP ---
Providers/Chief Complaint Admitting Physician: Maria G Gary MD Primary Care Provider: Yong Garland MD Chief Complaint: left foot toe--diabetic--[place] [facility] sent over History of Present Illness David Mota is a 68 year old male who presented to the emergency room from the clinic in [place] with worsening of a diabetic left foot infection. [place] was wearing his usual shoes which he typically buys a size larger than necessary. He did get his feet wet and walked around. Does not recall any trauma or blisters or sores to the foot but a couple of days after that he began having redness and swelling of the left great toe that extended to the foot over the course of the last week. He was seen on September 09 and started on Augmentin and doxycycline. He came back today for a recheck and is actually had worsening of the foot wound around the great toe with obvious purulence both anteriorly and posteriorly. Given worsening despite antibiotic therapy he was sent to the ER. In the emergency room x-ray did not reveal obvious changes of osteomyelitis. Case was discussed with Dr. Cordon. He did bedside debridement and collected wound culture. Recommendation was for admission to hospitalist service with empiric antibiotics, MRI with contrast if renal function will allow and likely surgical debridement in the next day or 2. Concern is for osteomyelitis given the wound, in addition to diabetic foot infection. The last 48 hours or so he has had significant pain in the left great toe at times. He does have diabetic peripheral neuropathy and is not used to feeling much in his feet. In talking with Mr. Mota, in addition to pain in his left foot/great toe, he has been having gradually worsening dyspnea on exertion and intermittent episodes of chest pain. The chest pain is predominantly right-sided. No clear association with exertion. Dyspnea is with any amount of walking around. He does not utilize any breathing medications nor is he on any diuretic therapy. He denies any episodes of left-sided chest pain. Shortness of breath usually improves with rest. No complaints of fevers, productive cough, nausea, vomiting, changes in bowel or bladder function. He does have nocturia several times a night. No reports of any bleeding. Decreased sensation in hands and feet related to his diabetes. No focal weakness. No other complaints reported. Review of Systems General: Reports: Other (ROS as per HPI or as otherwise noted here) Medications/Allergies Home Medications Medication Instructions Recorded Confirmed Last Taken Type aspirin 81 mg tablet,delayed 81 mg PO DAILY 03/28/19 09/13/23 09/12/23 History release ([place] Low Dose Aspirin) hydrocodone 10 mg-acetaminophen 1 tab PO Q4H PRN pain 30 days #180 03/18/21 09/13/23 09/13/23 Rx 325 mg tablet tabs flash glucose scanning reader #1 ea 07/28/22 09/13/23 Unknown Rx (FreeStyle Jesse 2 [place]) pen needle, diabetic 32 gauge x #100 ea 09/23/22 09/13/23 Unknown Rx (Comfort EZ Pen [place]) insulin lispro 100 unit/mL See Rx Instructions .Route 10/19/22 09/13/23 09/13/23 Rx subcutaneous pen .COMPLEX #30 mL flash glucose sensor (FreeStyle #6 kits 04/20/23 09/13/23 Unknown Rx Jesse 2 Sensor kit) metformin 1,000 mg tablet 1,000 mg PO BID 30 days #60 tabs 07/27/23 09/13/23 09/12/23 Rx insulin degludec 200 unit/mL (3 See Rx Instructions .Route 08/30/23 09/13/23 09/12/23 Rx mL) subcutaneous pen (Tresiba .COMPLEX #46 mL FlexTouch U-200 insulin) amoxicillin 875 mg-potassium 1 tab PO BID 10 days #20 tabs 09/10/23 09/13/23 09/13/23 Rx clavulanate 125 mg tablet doxycycline hyclate 100 mg tablet 100 mg PO BID 10 days #20 tabs 09/10/23 09/13/23 09/13/23 Rx amlodipine 10 mg tablet 10 mg PO DAILY 09/13/23 09/13/23 09/12/23 History atorvastatin 20 mg tablet 20 mg PO DAILY 09/13/23 09/13/23 09/12/23 History ergocalciferol (vitamin D2) 1,250 1,250 mcg PO Q7D 09/13/23 09/13/23 Unknown History mcg (50,000 unit) capsule hydroxyzine HCl 25 mg tablet 25 mg PO BID PRN Insomnia 09/13/23 09/13/23 Unknown History tizanidine 4 mg tablet 4 - 8 mg PO BEDTIME PRN muscle 09/13/23 09/13/23 Unknown History spasticity Allergies Allergy/AdvReac Type Severity Reaction Status Date / Time morphine Allergy UPSET GI Verified 09/13/23 08:52 tramadol AdvReac rapid Verified 09/13/23 08:52 heart rate PFSH Acute PFSH: Medical History (Updated 09/13/23 @ 19:21 by Maria G Gary MD) Ex-smoker YULI (obstructive sleep apnea) not on CPAP COPD (chronic obstructive pulmonary disease) Chronic back pain Chronic kidney disease COVID-19 determined by clinical diagnostic criteria 01/2020, summer 2021 Needle phobia 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 followed in [facility], had tonsillectomy in 2020 due to this BPH (benign prostatic hyperplasia) Environmental and seasonal allergies Mixed hyperlipidemia Vitamin D deficiency Diabetes mellitus, type II Osteoarthritis of lumbar spine Essential hypertension, benign Surgical History (Updated 09/13/23 @ 19:27 by Maria G Gary MD) History of neck surgery for tonsillar/oropharyngeal cancer after initial tonsillectomy Hx of tonsillectomy (02/2021) Hx of appendectomy Family History Mother Diabetes Brother Heart problem has 2 brothers with pacemakers Grandfather Cancer Other Chewing tobacco use Social History (Updated 09/13/23 @ 17:02 by Maria G Gary MD) Smoking and tobacco/nicotine status: former use of tobacco/nicotine Quit status (tobacco/nicotine): has quit using Year quit tobacco: 2016 Former quit date comment: 1ppd x 30 years Second hand smoke exposure: Yes Alcohol intake: never Substance/Drug Use: never Lives independently: Yes Household members: family Housing: House Marital status: Single service: No Current occupational status: disabled Pets and animals: Yes Do you think of yourself as: Straight/Heterosexual Current gender identity: Male Vitals/I&O/Wt Last Vital Signs Temp 97.9 F 09/13/23 11:16 Pulse 70 09/13/23 15:24 Resp 17 09/13/23 11:16 BP 179/72 09/13/23 11:16 Pulse Ox 98 09/13/23 15:24 O2 Del Method Room Air 09/13/23 15:24 Weight last 48 hrs Weight 104.326 kg Physical Exam Narrative: Patient is awake and alert. Able to answer questions. Normocephalic. Pupils are equally reactive. Face is symmetric. Oropharynx with dry mucous membranes. Dentures noted. Hearing aids noted. Neck is supple. Healed surgical scar noted to the right side of the neck. Scattered end expiratory wheezes predominantly in the apices. Decreased breath sounds at the bases. Cardiovascular exam reveals a regular rate and rhythm. Heart sounds slightly distant. Abdomen is soft with positive bowel sounds. No tenderness. Extremities left lower extremity edema notable compared to right lower extremity up to proximal alcala, 3+ left with none noted in the right. Mild erythema noted in the midfoot dorsal region. More intense erythema encompassing the entire left great toe. At the joint area there is a nearly circumferential band of purulent appearing material below the skin surface. On top of the great toe within this band is 1/2 cm diameter size of dark discoloration. No crepitus. Area with purulent appearance is slightly fluctuant, tender to palpation. Capillary refill is brisk. Speech is clear. Moves all extremities. Data 09/13/23 13:57 09/13/23 13:57 Other Labs: Radiology Impressions Foot X-Ray 09/13/23 12:26 IMPRESSION: No acute findings. Laboratory Results WBC 9.62 10^3/uL (3.29-11.43) 09/13/23 13:57 RBC 4.23 10^6/uL (3.85-5.65) 09/13/23 13:57 Hgb 12.70 g/dL (11.27-16.99) 09/13/23 13:57 Hct 39.5 % (37-53) 09/13/23 13:57 MCV 93.4 fl (82-101) 09/13/23 13:57 MCH 30.0 pg (27-33) 09/13/23 13:57 MCHC 32.2 g/dL (30-55) 09/13/23 13:57 RDW 12.0 % (12.1-15.1) L 09/13/23 13:57 Plt Count 252 10^3/cmm (157-399) 09/13/23 13:57 MPV 9.5 fL (7.4-10.4) 09/13/23 13:57 Neut % (Auto) 52.3 % 09/13/23 13:57 Lymph % (Auto) 36.8 % 09/13/23 13:57 Borden % (Auto) 7.3 % 09/13/23 13:57 Eos % (Auto) 2.8 % 09/13/23 13:57 Baso % (Auto) 0.6 % 09/13/23 13:57 Neut # (Auto) 5.03 10^3/uL (1.8-7.7) 09/13/23 13:57 Lymph # (Auto) 3.5 10^3/uL (0.8-4.8) 09/13/23 13:57 Borden # (Auto) 0.7 10^3/uL (0.2-0.9) 09/13/23 13:57 Eos # (Auto) 0.3 10^3/uL (0.0-0.8) 09/13/23 13:57 Baso # (Auto) 0.1 10^3/uL (0.0-0.1) 09/13/23 13:57 Nucleated RBC % (auto) 0 % 09/13/23 13:57 Nucleated RBCs # 0.0 /100WBC 09/13/23 13:57 ESR 31 mm/hr (0-10) H 09/13/23 13:57 Sodium 137 mmol/L (136-145) 09/13/23 13:57 Potassium 5.3 mmol/L (3.5-5.1) H 09/13/23 13:57 Chloride 104 mmol/L (98-107) 09/13/23 13:57 Carbon Dioxide 22 mmol/L (22-29) 09/13/23 13:57 Anion Gap 16.3 (5-19) 09/13/23 13:57 BUN 27 mg/dL (8-23) H 09/13/23 13:57 Creatinine 1.4 mg/dL (0.7-1.2) H 09/13/23 13:57 GFR Calculation 50.7 mL/min (90-130) L 09/13/23 13:57 Glucose 251 mg/dL (65-115) H 09/13/23 13:57 Calculated Osmolality 298 mOsm/kg (285-295) H 09/13/23 13:57 Calcium 9.4 mg/dL (8.5-10.5) 09/13/23 13:57 Total Bilirubin 0.4 mg/dL (0.15-1.2) 09/13/23 13:57 AST 17 U/L (0-40) 09/13/23 13:57 ALT 13 U/L (0-41) 09/13/23 13:57 Alkaline Phosphatase 76 U/L (40-130) 09/13/23 13:57 C-Reactive Protein 59.5 mg/L (0.0-4.9) H 09/13/23 13:57 Total Protein 7.9 g/dL (6.6-8.7) 09/13/23 13:57 Albumin 3.8 g/dL (3.5-5.2) 09/13/23 13:57 Globulin 4.1 g/dL (1.3-4.6) 09/13/23 13:57 Micro: Microbiology 09/13/23 14:00 Blood Culture - Preliminary Blood SPECIMEN COLLECTED 09/13/23 13:57 Blood Culture - Preliminary Blood SPECIMEN COLLECTED A&P Assessment and plan (1) Cellulitis and abscess of toe of left foot: Involving the left great toe, progressively worsening over the last week or so despite initiation of appropriate outpatient antibiotic therapy and management (2) Cellulitis of great toe, left: And abscess with findings concerning for early osteomyelitis despite plain x-rays of foot (3) Failure of outpatient treatment: Has been on Augmentin and doxycycline since09/09 with progression of infection noted (4) Diabetes mellitus, type II: On fci insulin (degludec and lispro) and metformin. Has poorly controlled diabetes with last A1c on 07/12/23 at 9.9. Qualifiers: Diabetes mellitus complication detail: with polyneuropathy Diabetes mellitus complication status: with neurologic complications Diabetes mellitus fci insulin use: with intermission coordinator use Qualified Code(s): E11.42 - Type 2 diabetes mellitus with diabetic polyneuropathy; Z79.4 - care home (current) use of insulin (5) Essential hypertension, benign: Chronically on amlodipine, currently suboptimally controlled blood pressure but may be in part due to not having had his usual pain medicine as scheduled (6) Chronic kidney disease: Chronic kidney disease stage II, currently with slight increase from baseline bun/creatinine Qualifiers: Chronic kidney disease stage: stage 2 (mild) Qualified Code(s): N18.2 - Chronic kidney disease, stage 2 (mild) (7) Mixed hyperlipidemia: Chronically on statin therapy (8) Diastolic CHF: By history, chronic, may have an acute component versus worsening COPD. EF on last echo in 2020 59% with grade I/IV diastolic dysfunction. Not on diuretics or other focused treatment chronically. Does report dyspnea on exertion with decreasing distances lately. (9) COPD (chronic obstructive pulmonary disease): Not definitively acute acute, not on focussed treatment, former smoker. He has been having increasing issues with dyspnea on exertion that could be indicative of progressively worsening COPD versus CHF. No productive cough to suggest acute bronchitis. Qualifiers: COPD type: unspecified COPD Qualified Code(s): J44.9 - Chronic obstructive pulmonary disease, unspecified (10) YULI (obstructive sleep apnea): Not on Cpap or home oxygen at night (11) BPH (benign prostatic hyperplasia): Long standing diagnosis, not currently on treatment Qualifiers: Lower urinary tract symptom detail: nocturia Lower urinary tract symptom presence: symptoms present Qualified Code(s): N40.1 - Benign prostatic hyperplasia with lower urinary tract symptoms; R35.1 - Nocturia (12) Chronic back pain: Chronically on hydrocodone, tizanidine. Controlled substances managed by Dr Can. PDMP checked by me on 09/13/23 with only provider and one pharmacy listed for controlled substances. Plan History of oropharyngeal cancer status post surgical intervention x 2, doing well Takes hydroxyzine chronically for insomnia On daily aspirin empirically Takes vitamin D for vitamin D deficiency Lower extremity edema left lower extremity, may be from infection left foot, chf, but no right lower extremity edema noted Inpatient admission Podiatry consultation, discussed with Dr. Cordon plans of care as outlined Continue vancomycin and Zosyn Follow-up pending cultures Repeat CRP in the morning Discussed with patient tentative plan for surgical debridement in the next couple of days along with planned preoperative evaluation IV fluids overnight Recheck renal function in the morning If renal function improved, will plan on MRI in the morning with and without contrast Venous duplex of the left lower extremity secondary to edema Monitor overall volume status for worsening with planned fluids Check proBNP EKG and troponin Echocardiogram secondary to complaints of chest pain and worsening dyspnea on exertion in a patient who may require surgical debridement this hospital stay Will continue long-acting insulin with Lantus 60 units daily (uses Tresiba 96 units daily at home) Will continue lispro at 10 units 3 times a day with meals plus moderate dose sliding scale insulin 3 times a day with meals (at home using 30 units subcu 3 times daily with meals) Hypoglycemia protocol has been ordered Holding home metformin Continue home amlodipine Continue home statin therapy Daily weights and strict I's and O's, may have to consider diuretic therapy during course of hospital stay Add breathing treatments Monitor need for oxygen with sleep, not inclined to consider utilizing CPAP Monitor need to initiate alpha blockers for BPH Continue home hydrocodone and tizanidine Continue home hydroxyzine Currently holding home weekly vitamin D2 Currently holding home aspirin VTE prophylaxis: Lovenox, which will need to be held preprocedure GI Prophylaxis: PPI Antibiotics: Vancomycin and Zosyn initiated 09/13/2023 Pending studies: Blood and wound cultures, ordered MRI, ordered proBNP, Telemetry: not currently indicated Boyd: not currently indicated Line(s): peripheral IVs Disposition plan: Home with outpatient follow up anticipated at this point in time. Patient's daughter and granddaughter live with him and could potentially help him with wound care. He follows at the clinic in [place]. Code Status: Full Code Supportive care otherwise Findings, concerns and plans were discussed with patient and he was given an opportunity to ask questions Attestations Medical Necessity Statement*: Anticipated stay greater than two midnights in this gentleman with poorly controlled diabetes presenting with left great toe abscess and cellulitis concerning for osteomyelitis. In addition he has complaints of chest pain and increasing shortness of breath. Comorbidities are noted above as are plans of care. He has already failed outpatient treatment with appropriate oral antibiotic therapy and is at high risk for further decline and significant complication up to and including the possibility of losing his toe without appropriate management, and even with appropriate management. Diagnoses Cellulitis and abscess of toe of left foot L03.032; L02.612 Cellulitis of great toe, left L03.032 Failure of outpatient treatment Z78.9 Type 2 diabetes mellitus with diabetic polyneuropathy, with long-term current use of insulin E11.42; Z79.4 Diabetes mellitus complication detail: with polyneuropathy Diabetes mellitus complication status: with neurologic complications Diabetes mellitus intermission coordinator insulin use: with intermission coordinator use Essential hypertension, benign I10 Stage 2 chronic kidney disease N18.2 Chronic kidney disease stage: stage 2 (mild) Mixed hyperlipidemia E78.2 Diastolic CHF I50.30 Chronic obstructive pulmonary disease, unspecified COPD type J44.9 COPD type: unspecified COPD YULI (obstructive sleep apnea) G47.33 Benign prostatic hyperplasia with nocturia N40.1; R35.1 Lower urinary tract symptom detail: nocturia Lower urinary tract symptom presence: symptoms present Chronic back pain M54.9; G89.29
[2023-09-13 17:00] VITALS: PULSE 82; RESP 15; O2SAT 99
[2023-09-13] MEDS: HYDROcodone-acetaminophen 10-325 mg Tablet 1 TAB PO ×2 (17:06→21:44)
[2023-09-13] MEDS: tizanidine 4 mg Tablet PO (17:07)
[2023-09-13] MEDS: piperacillin-tazobactam 3.375 GM in sodium chloride 0.9% (plus) 50 ML IV (18:35)
[2023-09-13 19:00] VITALS: BP 124/77; O2SAT 96
--- NOTE | 2023-09-13 19:20 | PC.NURSE ---
attempted to call report, nurse to call back. 1919
--- NOTE | 2023-09-13 19:40 | ECG_ITS ---
[facility] Test Date: 2023-09-13 Pat Name: David Mota Department: Room: 277 Gender: Male [employer] El[employer] Operator: : 1955 Requested By: Maria G Gary Order Number: [id number] Tiffani MD: Edmund Fletcher M.D. Measurements Intervals Loraine Rate: 63 P: 28 MI: 174 QRS: -6 QRSD: 115 T: -1 QT: 379 QTc: 389 Interpretive Statements SINUS RHYTHM LOW QRS VOLTAGE IN PRECORDIAL LEADS [QRS DEFLECTION < 1.0 mV IN CHEST LEADS] INCOMPLETE RIGHT BUNDLE BRANCH BLOCK [90+ ms QRS DURATION, TERMINAL R IN V1/V2, 40+ ms S IN I/aVL/V4/V5/V6] POSSIBLE ANTERIOR MYOCARDIAL INFARCTION , PROBABLY OLD [30 ms Q WAVE IN V3/V4, OR R < 0.2 mV IN V4] Compared to ECG 01/28/2021 11:20:41 Low QRS voltage now present Incomplete right bundle-branch block now present Myocardial infarct finding now present Electronically Signed On 09-14-2023 8:58:57 CDT by Edmund Fletcher M.D. [email or web address]
[2023-09-13 20:38] VITALS: BP 147/80; PULSE 67; RESP 18; TEMP 36.8; O2SAT 97
--- NOTE | 2023-09-13 20:38 | USCV_ITS ---
David Mota Age: 68 Gender: M : 1955 Exam Date: 09/13/2023 22:32 Ordering Phys: Maria G Gary MD Technologist: RAFIQ [place] [facility] [place]: swelling of LEFT ankle x 1 week, open non-healing ulcer on LEFT 1st toe, DM, going to surgery , YORK, CP, HTN HISTORY: swelling of LEFT ankle x 1 week, open non-healing ulcer on LEFT 1st toe, DM, going to surgery , YORK, CP, HTN PROCEDURES: Venous duplex imaging was performed in only the left lower extremity. The following venous structures were evaluated: common femoral vein, profunda vein, proximal portion of the greater saphenous vein, superficial femoral vein, and the popliteal vein. In addition, the posterior tibial and peroneal veins were evaluated. Serial compression, augmentation maneuvers, and spectral Doppler flow evaluation were performed, which were normal. On the left side, the common femoral, superficial femoral, profunda femoral, popliteal, posterior tibial, greater saphenous veins, and the peroneal veins were identified and interrogated in the standard fashion. These veins were found to be easily compressible with spontaneous blood flow. No evidence of thrombus noted. CONCLUSIONS No evidence of left lower extremity DVT. Leighton Barrera MD (Electronically Signed) Final Date: 14 September 2023 08:57 S
--- NOTE | 2023-09-13 20:38 | USCV_ITS ---
David Mota Age: 68 Gender: M : 1955 Exam Date: 09/13/2023 22:48 Ordering Phys: Maria G Gary MD Technologist: RAFIQ [place] [facility] [place]: [place], CP, HTN, DM, pre-op clearance. No history of cardiac intervention per patient. BP: 179 / 72 HR: 57 Rhythm: Sinus bradycardia Technical Quality: Adequate MEASUREMENTS (Male / Female) Normal Values 2D ECHO LV Diastolic Diameter PLAX 4.2 cm 4.2 - 5.9 / 3.9 - 5.3 cm LV Systolic Diameter PLAX 2.7 cm IVS Diastolic Thickness 1.6 cm 0.6 - 1.0 / 0.6 - 0.9 cm IVS Systolic Thickness 2.0 cm LVPW Diastolic Thickness 1.4 cm 0.6 - 1.0 / 0.6 - 0.9 cm LVPW Systolic Thickness 1.8 cm LVOT Diameter 1.9 cm LV Ejection Fraction 2D Teich 65.5 % LV Ejection Fraction MOD 2C 56.1 % LV Ejection Fraction 2C AL 56.8 % LA Diameter 4.2 cm Aorta at Sinotubular Diameter 2.9 cm IVC Diameter 1.1 cm M-MODE LA Ao Ratio MM 1.2 AV Cusp Separation MM 2.1 cm DOPPLER AV Peak Velocity 131.0 cm/s LVOT Peak Velocity 108.0 cm/s AV Area Cont Eq vti 2.6 cm squared AV Area Cont Eq pk 2.4 cm squared MV Peak Velocity 128.0 cm/s MV Area PHT 3.9 cm squared Mitral E to A Ratio 1.0 TR Peak Velocity 210.0 cm/s TR Peak Gradient 17.6 mmHg TV Peak E Velocity 46.0 cm/s Right Atrial Pressure 3.0 mmHg Pulmonary Artery Systolic Pressu 20.6 mmHg PV Peak Velocity 64.0 cm/s FINDINGS Left Ventricle Left ventricular ejection fraction is estimated at 56%.. No regional wall motion abnormalities. Grade II/IV diastolic dysfunction, moderately elevated filling pressures. Right Ventricle The right ventricle is normal in size and function. Right Atrium The right atrium is normal in size. Left Atrium Mildly increased left atrial size. Mitral Valve Thickened mitral valve.trace mitral valve regurgitation. Aortic Valve Minimally thickened aortic valve. Tricuspid Valve No gross abnormalities noted Pulmonic Valve Trace pulmonary valve regurgitation. Estimated pulmonary artery peak systolic pressure 21 mmHg Pericardium Normal pericardium without effusion. Aorta Normal ascending aorta dimension. IVC Normal inferior vena cava. CONCLUSIONS Left ventricular ejection fraction is estimated at 56%.. No regional wall motion abnormalities. Grade II/IV diastolic dysfunction, moderately elevated filling pressures. Mildly increased left atrial size. Minimally thickened aortic valve. Trace pulmonary valve regurgitation. Estimated pulmonary artery peak systolic pressure 21 mmHg. There is no pericardial effusion. There are no intracardiac masses. Compared to the study from 05/21/2020, there may not be a significant change Dr Reggie Ventura MD FACC (Electronically Signed) Final Date: 14 September 2023 16:49 S
[2023-09-13 20:52] LABS: Glucose Point of Care 331 mg/dL (70-110)
[2023-09-13 21:41] LABS: Troponin T (5th) Once 20 ng/L (0-15)
[2023-09-13] MEDS: sodium chloride 0.9% 1,000 ML 75 ML IV (21:42)
[2023-09-13] MEDS: enoxaparin 40 mg/0.4 mL Syringe SUBCUT (21:43)
[2023-09-13] MEDS: insulin lispro 100 unit/1 mL SUBCUT (21:44)
[2023-09-13] MEDS: pregabalin 25 mg Capsule PO (21:45)
[2023-09-13] MEDS: docusate sodium 100 mg Capsule PO (21:46)
[2023-09-13] MEDS: sennosides 8.6 mg Tablet 17.2 MG PO (21:46)
[2023-09-13 23:46] VITALS: BP 132/81; PULSE 62; RESP 17; TEMP 36.8; O2SAT 96
[2023-09-14 00:47] LABS: Glucose Point of Care 174 mg/dL (70-110)
[2023-09-14] MEDS: piperacillin-tazobactam 3.375 GM in sodium chloride 0.9% (plus) 50 ML IV ×4 (01:24→23:56)
[2023-09-14 04:00] VITALS: BP 147/80; PULSE 69; RESP 18; TEMP 36.7; O2SAT 98
[2023-09-14 06:22] LABS: Glucose Point of Care 141 mg/dL (70-110)
[2023-09-14 07:05] LABS: Basophils # 0.1 10^3/uL (0.0-0.1); Basophils % 0.7 %; Eosinophils # 0.4 10^3/uL (0.0-0.8); Eosinophils % 4.1 %; Hematocrit 38.1 % (37-53); Lymphocytes # 2.9 10^3/uL (0.8-4.8); Lymphocytes % 33.8 %; Mean Corpuscular HGB Conc 32.8 g/dL (30-55); Mean Corpuscular Hemoglobin 30.2 pg (27-33); Mean Platelet Volume 9.8 fL (7.4-10.4); Monocytes # 0.7 10^3/uL (0.2-0.9); Monocytes % 7.7 %; Neutrophils # 4.51 10^3/uL (1.8-7.7); Neutrophils % 53.5 %; Nucleated Red Blood Cells % 0 %; Platelet Count 279 10^3/cmm (157-399); Red Blood Count 4.14 10^6/uL (3.85-5.65); White Blood Count 8.45 10^3/uL (3.29-11.43)
[2023-09-14 07:22] LABS: Troponin T (5th) Once 20 ng/L (0-15)
[2023-09-14 07:23] VITALS: BP 156/78; PULSE 71; TEMP 37.4; O2SAT 95
[2023-09-14 07:28] LABS: Blood Urea Nitrogen 22 mg/dL (8-23); C Reactive Protein 42.2 mg/L (0.0-4.9); Calcium 9.3 mg/dL (8.5-10.5); Carbon Dioxide 24 mmol/L (22-29); Chloride 108 mmol/L (98-107); Creatinine Clr Calc Pharmacy 76.3807; Glomerular Filtration Rate 60.6 mL/min (90-130); Glucose 135 mg/dL (65-115); Magnesium 1.7 mg/dL (1.7-2.3); Osmolality Calculated 299 mOsm/kg (285-295); Sodium 142 mmol/L (136-145)
[2023-09-14] MEDS: atorvastatin 40 mg Tablet PO (07:54)
[2023-09-14] MEDS: pantoprazole DR 40 mg Tablet PO (07:54)
[2023-09-14] MEDS: pregabalin 25 mg Capsule PO ×2 (07:55→17:23)
[2023-09-14] MEDS: docusate sodium 100 mg Capsule PO ×2 (07:55→17:23)
[2023-09-14] MEDS: amlodipine 10 mg Tablet PO (07:55)
[2023-09-14 08:07] LABS: NT Pro B Type Natriuretic Pept 172 pg/mL (0-125)
[2023-09-14] MEDS: gadobenate dimeglumine 20 mL vial IV (08:41)
--- NOTE | 2023-09-14 09:30 | MR_ITS ---
WS: [id number] EXAMINATION: MR foot LT wo/w con [id number] ORDER DATE: 09/14/2023 9:30 AM COMPARISON: None. HISTORY: left great toe circumferential abscess, ?osteo, DM a1c 9.9 CONTRAST: None. TECHNIQUE: Sagittal T1, sagittal STIR, coronal PD, coronal T2, axial T1, axial T2, and axial PD imagi ng with fat saturation technique. Post gadolinium imaging includes axial T1, coronal T1, and sagittal T1 with fat saturation technique. FINDINGS: Ulceration dorsal surface of the great toe distal phalanx with associated skin thickening with edema and enhancement compatible with cellulitis. No well-defined fluid collections or drainable abscess. P reserved fatty bone marrow signal in the distal phalanx. No evidence of acute osteomyelitis. Diffuse edema with enhancement involving the forefoot and intertarsal soft tissues compatible with ce llulitis. Small amount of fluid and edema in the first MTP and DIP joints. Normal bone marrow signal in the first proximal phalanx and distal first metatarsal. MR/MR foot LT wo/w con [id number] IMPRESSION: 1. No evidence of acute osteomyelitis. 2. Ulceration involving the distal phalanx great toe with associated celluliti s. No well-defined drainable abscess. 3. Small mount of fluid in the first MTP and DIP joints. 4. Subcutaneous edema with cellulitis involving the distal forefoot and distal intertarsal soft tissues.
--- NOTE | 2023-09-14 09:37 | PC.CHAP ---
Pastoral Care Encounter/Spiritual Assessment Type of Contact [] Declined sole polisher visit [] Patient/Family/Request visit [] Outpatient visit [] Follow-up visit [] Physician referral [] Code/Alert [] Routine visit [] Staff referral [] Actively dying [] Patient sleeping [] Family support [] [x] Out of room [] Palliative care [] [] Receiving care in room [] Pre-surgical visit [] Trauma [] Long length of stay [] ICU visit [] Other: Relational/Emotional Strength [] Patient feels connected with others/family/visitors/staff [] Distress [] Loneliness/isolation [] Abandonment Spirituality of Patient [] Person of Katie [] Attends Confucianist of their Katie [] Believes in Prayer [] Reads Bible or Baptist materials [] There are Spiritual issues to be addressed Automatic Machine Attendant Interventions [] Prayer [] Active listening [] Non-anxious presence [] Spiritual/emotional support [] Crisis/trauma care [] Spiritual counseling [] Bereavement support [] Provided bereavement packet [] Provided Bible/devotional materials [] Provided toy/stuffed animal, coloring book to patient or family member [] Provided Communion [] Anointing/[place] [] Salvation [] Completed spiritual assessment [] Other: Impact on Illness or Injury [] Angry [] Fearful [] Anxious [] Often cries [] Exhaustion [] Unable to work [] Unable to attend hinduism [] Unable to walk/stand [] Unable to read [] Unable to drive [] Unable to eat/drink [] Unable to sleep [] Unable to be with family [] Patient intubated [] Other: Summary Time spent with patient
[2023-09-14 10:05] VITALS: PULSE 70; RESP 16; O2SAT 97
--- NOTE | 2023-09-14 10:32 | ECG_ITS ---
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 Measurements Intervals [place] Rate: 71 P: 11 [place]: 157 QRS: -13 QRSD: 126 T: 5 QT: 378 QTc: 413 Interpretive Statements SINUS RHYTHM MODERATE INTRAVENTRICULAR CONDUCTION DELAY [110+ ms QRS DURATION] Compared to ECG 09/13/2023 20:47:23 Intraventricular conduction delay now present Incomplete right bundle-branch block no longer present Myocardial infarct finding no longer present Electronically Signed On 09-14-2023 23:45:22 CDT by Reggie Ventura M.D. [id number]
[2023-09-14 10:48] VITALS: BP 156/81; PULSE 66; RESP 17; TEMP 36.7; O2SAT 98
[2023-09-14] MEDS: sodium chloride 0.9% 1,000 ML 75 ML IV (10:56)
[2023-09-14] MEDS: HYDROcodone-acetaminophen 10-325 mg Tablet 1 TAB PO ×2 (10:59→20:18)
[2023-09-14 11:06] LABS: Glucose Point of Care 166 mg/dL (70-110)
--- NOTE | 2023-09-14 11:15 | PM.PN ---
Subjective Subjective: Patient seen bedside this morning, significant improvement of cellulitis at the right foot and great toe. He has erythema localized adjacent to the nail fold both medially, proximal and lateral at the right great toenail. Patient denies any subjective nausea, vomiting, fever, chills, shortness of breath or chest pain. Vitals/I&O/Wt Last Vital Signs Temp 98.1 F 09/14/23 10:48 Pulse 66 09/14/23 10:48 Resp 17 09/14/23 10:48 BP 156/81 09/14/23 10:48 Pulse Ox 98 09/14/23 10:48 O2 Del Method Room Air 09/14/23 10:48 09/13/23 09/14/23 09/14/23 22:59 06:59 14:59 Intake Total 520 / 520 50 / 570 992.5 / 992.5 Output Total 0 / 0 500 / 500 Balance 520 / 520 -450 / 70 992.5 / 992.5 Weight last 48 hrs Weight 234 lb 14.4 oz Weight 231 lb 11.2 oz Weight 230 lb Physical Exam Narrative: GENERAL: Patient is alert and oriented ?3 and in no acute distress. The following is a focused bilateral lower extremity exam. VASCULAR: Dorsalis pedis palpable +2 bilaterally, posterior tibial arteries palpable +2. Capillary refill time less than 3 seconds to the distal hallux bilaterally. Calf is supple and nontender proximally and distally. Decrease in pedal hair growth bilaterally. NEUROLOGICAL: Protective sensation intact 0/10 sites, tested with [place] monofilament to bilateral feet. DERMATOLOGICAL: Arenas grade 2 wound at the dorsum and plantar aspect of the left hallux at the level of the interphalangeal joint with, subsiding erythema at the right forefoot is localized to the right great toe and is most severe just adjacent to the nail fold medial and laterally as well as proximally at the right great toenail. MUSCULOSKELETAL: No crepitus with soft tissue palpation and no pain to palpation or with debridement secondary to neuropathy. Data 09/14/23 06:12 09/14/23 06:12 Micro: Microbiology 09/13/23 15:52 Gram Stain - Final Toe - Left Big Abscess Culture - Preliminary 09/13/23 14:00 Blood Culture - Preliminary Blood SPECIMEN COLLECTED 09/13/23 13:57 Blood Culture - Preliminary Blood SPECIMEN COLLECTED A&P Assessment and plan (1) Diabetic peripheral neuropathy associated with type 2 diabetes mellitus: (2) Non-pressure chronic ulcer of other part of left foot with fat layer exposed: The risks of nail avulsion discussed with patient include prolonged postoperative drainage, re-growth of the nail with deformity, infection of the surgical site, unpredictable tissue damage, periostitis, poor cosmetic results, allodynia, hyperalgesia, pain, scarring, bleeding, need for a subsequent procedure to correct any of the above. After verbal and written consent the right hallux was injected with 6 cc's of 1% lidocaine plain in a digital block. Once anesthetized, the right hallux was painted with Betadine, and a tourniquet was placed. A spatula was utilized to free the right hallux from soft tissue attachments. The right hallux removed in total with a straight mosquito hemostat. Dressing of bacitracin, Adaptic, 4 x 4's, Salma, and Coban applied. Matthew tourniquet was removed and a prompt hyperemic response was noted to the right hallux. (3) Cellulitis of left foot: Plan 68-year-old diabetic male with peripheral neuropathy presents with Arenas grade 2 ulcer left great toe and cellulitis streaking to the left forefoot, failed outpatient oral antibiotics 3 days of doxycycline and Augmentin. . Clinical improvement appreciated with empiric IV antibiotics vancomycin and Zosyn, Wound culture pending Given the amount of improvement clinically overnight with antibiotic therapy and MRI findings recommended holding on any type of surgical debridement at this time. New dressing Betadine wet-to-dry Right hallux nail avulsion as above Right foot MRI negative for acute osteomyelitis, negative for drainable abscess Will continue to monitor his response to IV antibiotics, will await wound cultures Will continue to round daily Attestations Medical Necessity Statement*: Requires continued empiric IV antibiotics for cellulitis secondary to diabetic foot infection that failed outpatient oral antibiotic therapy. Coding Level of Care Code Acute Code for [facility] Diagnoses Diabetic peripheral neuropathy associated with type 2 diabetes mellitus E11.42 Non-pressure chronic ulcer of other part of left foot with fat layer exposed L97.522 Cellulitis of left foot L03.116 Comment cpt 88876
[2023-09-14] MEDS: insulin lispro 100 unit/1 mL 10 UNIT SUBCUT ×2 (11:32→17:23)
[2023-09-14] MEDS: insulin lispro 100 unit/1 mL SUBCUT ×2 (11:32→21:20)
[2023-09-14] MEDS: vancomycin 1,250 MG/250 ML PIGGYBACK 250 MG IV (11:33)
[2023-09-14 16:00] VITALS: BP 113/64; PULSE 64; TEMP 36.8; O2SAT 97
[2023-09-14 16:50] LABS: Glucose Point of Care 116 mg/dL (70-110)
--- NOTE | 2023-09-14 17:09 | PM.PN ---
Subjective Subjective: MRI completed this morning without evidence of acute osteomyelitis. Cellulitis improving on IV antibiotics, surgical intervention deferred for now. Medications: Reviewed: Yes Vitals/I&O/Wt Last Vital Signs Temp 98.2 F 09/14/23 16:00 Pulse 64 09/14/23 16:00 Resp 17 09/14/23 10:48 BP 113/64 09/14/23 16:00 Pulse Ox 97 09/14/23 16:00 O2 Del Method Room Air 09/14/23 16:00 09/14/23 09/14/23 09/14/23 06:59 14:59 22:59 Intake Total 50 / 570 1532.5 / 1532.5 Output Total 500 / 500 Balance -450 / 70 1532.5 / 1532.5 Weight last 48 hrs Weight 106.549 kg Weight 105.097 kg Weight 104.326 kg Data 09/14/23 06:12 09/14/23 06:12 Micro: Microbiology 09/13/23 13:57 Blood Culture - Preliminary Blood NEGATIVE TO DATE 09/13/23 14:00 Blood Culture - Preliminary Blood NEGATIVE TO DATE 09/13/23 15:52 Gram Stain - Final Toe - Left Big Abscess Culture - Preliminary A&P Assessment and plan (1) Cellulitis and abscess of toe of left foot: Involving the left great toe, progressively worsening over the last week or so despite initiation of appropriate outpatient antibiotic therapy and management (2) Cellulitis of great toe, left: And abscess with findings concerning for early osteomyelitis despite plain x-rays of foot (3) Failure of outpatient treatment: Has been on Augmentin and doxycycline since09/09 with progression of infection noted (4) Diabetes mellitus, type II: On termite technician insulin (degludec and lispro) and metformin. Has poorly controlled diabetes with last A1c on 07/12/23 at 9.9. Qualifiers: Diabetes mellitus termite technician insulin use: with care home use Diabetes mellitus complication status: with neurologic complications Diabetes mellitus complication detail: with polyneuropathy Qualified Code(s): E11.42 - Type 2 diabetes mellitus with diabetic polyneuropathy; Z79.4 - nursing home (current) use of insulin (5) Essential hypertension, benign: Chronically on amlodipine, currently suboptimally controlled blood pressure but may be in part due to not having had his usual pain medicine as scheduled (6) Chronic kidney disease: Chronic kidney disease stage II, currently with slight increase from baseline bun/creatinine Qualifiers: Chronic kidney disease stage: stage 2 (mild) Qualified Code(s): N18.2 - Chronic kidney disease, stage 2 (mild) (7) Mixed hyperlipidemia: Chronically on statin therapy (8) Diastolic CHF: By history, chronic, may have an acute component versus worsening COPD. EF on last echo in 2020 59% with grade I/IV diastolic dysfunction. Not on diuretics or other focused treatment chronically. Does report dyspnea on exertion with decreasing distances lately. (9) COPD (chronic obstructive pulmonary disease): Not definitively acute acute, not on focussed treatment, former smoker. He has been having increasing issues with dyspnea on exertion that could be indicative of progressively worsening COPD versus CHF. No productive cough to suggest acute bronchitis. Qualifiers: COPD type: unspecified COPD Qualified Code(s): J44.9 - Chronic obstructive pulmonary disease, unspecified (10) YULI (obstructive sleep apnea): Not on Cpap or home oxygen at night (11) BPH (benign prostatic hyperplasia): Long standing diagnosis, not currently on treatment Qualifiers: Lower urinary tract symptom presence: symptoms present Lower urinary tract symptom detail: nocturia Qualified Code(s): N40.1 - Benign prostatic hyperplasia with lower urinary tract symptoms; R35.1 - Nocturia (12) Chronic back pain: Chronically on hydrocodone, tizanidine. Controlled substances managed by Dr Can. PDMP checked by me on 09/13/23 with only provider and one pharmacy listed for controlled substances. Plan History of oropharyngeal cancer status post surgical intervention x 2, doing well Takes hydroxyzine chronically for insomnia On daily aspirin empirically Takes vitamin D for vitamin D deficiency Lower extremity edema left lower extremity, may be from infection left foot, chf, but no right lower extremity edema noted Inpatient admission Podiatry consultation, discussed with Dr. Cordon plans of care as outlined Continue vancomycin and Zosyn Follow-up pending cultures Repeat CRP in the morning Discussed with patient tentative plan for surgical debridement in the next couple of days along with planned preoperative evaluation IV fluids overnight Recheck renal function in the morning If renal function improved, will plan on MRI in the morning with and without contrast Venous duplex of the left lower extremity secondary to edema Monitor overall volume status for worsening with planned fluids Check proBNP EKG and troponin Echocardiogram secondary to complaints of chest pain and worsening dyspnea on exertion in a patient who may require surgical debridement this hospital stay Will continue long-acting insulin with Lantus 60 units daily (uses Tresiba 96 units daily at home) Will continue lispro at 10 units 3 times a day with meals plus moderate dose sliding scale insulin 3 times a day with meals (at home using 30 units subcu 3 times daily with meals) Hypoglycemia protocol has been ordered Holding home metformin Continue home amlodipine Continue home statin therapy Daily weights and strict I's and O's, may have to consider diuretic therapy during course of hospital stay Add breathing treatments Monitor need for oxygen with sleep, not inclined to consider utilizing CPAP Monitor need to initiate alpha blockers for BPH Continue home hydrocodone and tizanidine Continue home hydroxyzine Currently holding home weekly vitamin D2 Currently holding home aspirin VTE prophylaxis: Lovenox, which will need to be held preprocedure GI Prophylaxis: PPI Antibiotics: Vancomycin and Zosyn initiated 09/13/2023 Pending studies: Blood and wound cultures, ordered MRI, ordered proBNP, Telemetry: not currently indicated Boyd: not currently indicated Line(s): peripheral IVs Disposition plan: Home with outpatient follow up anticipated at this point in time. Patient's daughter and granddaughter live with him and could potentially help him with wound care. He follows at the clinic in [place]. Code Status: Full Code Supportive care otherwise Findings, concerns and plans were discussed with patient and he was given an opportunity to ask questions Plan for today: Continue IV antibiotics piperacillin/tazobactam and vancomycin. Await wound cultures taken yesterday in the emergency room. Would prefer to continue IV antibiotics over the next 24 to 48 hours given recent failure of outpatient medical therapy. Discontinue IV fluids. MRI taken today without signs of osteomyelitis. Surgical intervention deferred for now. Attestations Medical Necessity Statement*: Continue IV antibiotics until consistent clinical improvement is noted. Await cultures to decide transition to oral antibiotic regimen. Coding Level of Care Code Acute Code for Chg Fwd Moderate MDM includes number and complexity of problems actively addressed during encounter, amount and/or complexity of data reviewed/ordered and described risk of complication, morbidity or mortality of management as documented Diagnoses Cellulitis and abscess of toe of left foot L03.032; L02.612 Cellulitis of great toe, left L03.032 Failure of outpatient treatment Z78.9 Type 2 diabetes mellitus with diabetic polyneuropathy, with long-term current use of insulin E11.42; Z79.4 Diabetes mellitus care home insulin use: with termite technician use Diabetes mellitus complication status: with neurologic complications Diabetes mellitus complication detail: with polyneuropathy Essential hypertension, benign I10 Stage 2 chronic kidney disease N18.2 Chronic kidney disease stage: stage 2 (mild) Mixed hyperlipidemia E78.2 Diastolic CHF I50.30 Chronic obstructive pulmonary disease, unspecified COPD type J44.9 COPD type: unspecified COPD YULI (obstructive sleep apnea) G47.33 Benign prostatic hyperplasia with nocturia N40.1; R35.1 Lower urinary tract symptom presence: symptoms present Lower urinary tract symptom detail: nocturia Chronic back pain M54.9; G89.29
[2023-09-14 19:37] VITALS: BP 121/65; PULSE 56; RESP 17; TEMP 36.8; O2SAT 97
[2023-09-14] MEDS: enoxaparin 40 mg/0.4 mL Syringe SUBCUT (20:11)
[2023-09-14] MEDS: sennosides 8.6 mg Tablet 17.2 MG PO (20:11)
[2023-09-14] MEDS: tizanidine 4 mg Tablet PO (20:18)
[2023-09-14 20:27] LABS: Glucose Point of Care 159 mg/dL (70-110)
[2023-09-15] VITALS (8 sets, daily range): BP systolic 105–161; BP diastolic 52–80; PULSE 51–74; RESP 14–18; TEMP 36.5–36.9; O2SAT 93–98
[2023-09-15 05:56] LABS: Add Urine Microscopic? NO; Charge for UA Resulting for Rev
[2023-09-15] MEDS: HYDROcodone-acetaminophen 10-325 mg Tablet 1 TAB PO ×3 (05:58→21:37)
[2023-09-15] MEDS: tizanidine 4 mg Tablet PO ×2 (05:58→17:27)
[2023-09-15] MEDS: vancomycin 1,250 MG/250 ML PIGGYBACK 250 MG IV ×2 (05:58→23:15)
[2023-09-15 06:06] LABS: Basophils # 0.1 10^3/uL (0.0-0.1); Basophils % 0.7 %; Eosinophils # 0.3 10^3/uL (0.0-0.8); Eosinophils % 2.7 %; Hematocrit 35.9 % (37-53); Lymphocytes # 2.9 10^3/uL (0.8-4.8); Lymphocytes % 30.4 %; Mean Corpuscular Hemoglobin 29.3 pg (27-33); Mean Corpuscular Volume 91.6 fl (82-101); Mean Platelet Volume 9.7 fL (7.4-10.4); Monocytes # 0.6 10^3/uL (0.2-0.9); Monocytes % 6.3 %; Neutrophils # 5.68 10^3/uL (1.8-7.7); Neutrophils % 59.7 %; Nucleated Red Blood Cells % 0 %; Platelet Count 280 10^3/cmm (157-399); Red Blood Count 3.92 10^6/uL (3.85-5.65); Red Cell Distribution Width 11.9 % (12.1-15.1); White Blood Count 9.53 10^3/uL (3.29-11.43)
[2023-09-15 06:09] LABS: Bilirubin Urine Neg (Negative); Blood Urine Neg (Negative); Glucose Urine UA 1+ (Normal); Ketones Urine Negative (Negative); Leukocyte Esterase Urine Negative (Negative); Nitrate Urine Negative (Negative); Protein Urine Neg (Negative); Specific Gravity, Urine 1.015 (1.005-1.030); Urine Appearance Clear (CLEAR); Urine Color Yellow (Yellow); Urobilinogen Urine Norm (Negative); pH Urine 5 (5-7)
[2023-09-15 06:29] LABS: Alanine Aminotransferase 11 U/L (0-41); Albumin Level 3.3 g/dL (3.5-5.2); Alkaline Phosphatase 59 U/L (40-130); Aspartate Amino Transferase 14 U/L (0-40); Blood Urea Nitrogen 20 mg/dL (8-23); Carbon Dioxide 23 mmol/L (22-29); Chloride 107 mmol/L (98-107); Creatinine Clr Calc Pharmacy 76.2097; Globulin 3.4 g/dL (1.3-4.6); Glomerular Filtration Rate 60.6 mL/min (90-130); Glucose 166 mg/dL (65-115); Osmolality Calculated 292 mOsm/kg (285-295); Sodium 138 mmol/L (136-145); Total Bilirubin 0.4 mg/dL (0.15-1.2); Total Protein 6.7 g/dL (6.6-8.7)
[2023-09-15 06:40] LABS: Glucose Point of Care 162 mg/dL (70-110)
--- NOTE | 2023-09-15 06:44 | P.PN_ITS ---
Subjective 2 Subjective: Patient seen bedside this a.m., denies any acute events overnight. Denies any pain in the left lower extremity. Patient denies any subjective nausea, vomiting, fever, chills, shortness of breath or chest pain. Vitals/I&O/Wt Last Vital Signs Temp 98.5 F 09/15/23 04:00 Pulse 56 L 09/15/23 04:00 Resp 18 09/15/23 04:00 BP 124/71 09/15/23 04:00 Pulse Ox 96 09/15/23 04:00 O2 Del Method Room Air 09/14/23 16:00 09/14/23 09/14/23 09/15/23 14:59 22:59 06:59 Intake Total 1532.5 / 1532.5 1245 / 2777.5 50 / 2827.5 Balance 1532.5 / 1532.5 1245 / 2777.5 50 / 2827.5 Weight last 48 hrs Weight 233 lb 12.8 oz Weight 233 lb 12.8 oz Weight 234 lb 14.4 oz Weight 231 lb 11.2 oz Weight 230 lb Physical Exam 2 Narrative: GENERAL: Patient is alert and oriented ?3 and in no acute distress. The following is a focused bilateral lower extremity exam. VASCULAR: Dorsalis pedis palpable +2 bilaterally, posterior tibial arteries palpable +2. Capillary refill time less than 3 seconds to the distal hallux bilaterally. Calf is supple and nontender proximally and distally. Decrease in pedal hair growth bilaterally. NEUROLOGICAL: Protective sensation intact 0/10 sites, tested with [place] Vy monofilament to bilateral feet. DERMATOLOGICAL: Arenas grade 2 wound at the dorsum and plantar aspect of the left hallux at the level of the interphalangeal joint with, subsiding erythema at the right forefoot is localized to the right great toe more prominent medially, nailbed is well-healing without purulent drainage. MUSCULOSKELETAL: No crepitus with soft tissue palpation and no pain to palpation. Data 09/15/23 05:36 09/15/23 05:36 Micro: Microbiology 09/13/23 13:57 Blood Culture - Preliminary Blood NEGATIVE TO DATE 09/13/23 14:00 Blood Culture - Preliminary Blood NEGATIVE TO DATE 09/13/23 15:52 Gram Stain - Final Toe - Left Big Abscess Culture - Preliminary A&P Assessment and plan (1) Diabetic peripheral neuropathy associated with type 2 diabetes mellitus: (2) Non-pressure chronic ulcer of other part of left foot with fat layer exposed: (3) Cellulitis of left foot: Plan 68-year-old diabetic male with peripheral neuropathy presents with Arenas grade 2 ulcer left great toe and cellulitis streaking to the left forefoot, failed outpatient oral antibiotics 3 days of doxycycline and Augmentin. . Clinical improvement appreciated with empiric IV antibiotics vancomycin and Zosyn, Wound culture pending Right foot MRI negative for acute osteomyelitis, negative for drainable abscess Planning on awaiting cultures to help guide antibiotic selection outpatient, no plans for surgical debridement given his response to empiric IV antibiotics. Will continue to round daily Attestations 2 Medical Necessity Statement*: Requires continued empiric IV antibiotics having failed outpatient antibiotics. Awaiting wound culture Coding Level of Care Code Acute Code for [facility] Diagnoses Diabetic peripheral neuropathy associated with type 2 diabetes mellitus E11.42 Non-pressure chronic ulcer of other part of left foot with fat layer exposed L97.522 Cellulitis of left foot L03.116
[2023-09-15] MEDS: insulin lispro 100 unit/1 mL SUBCUT ×3 (08:11→20:49)
[2023-09-15] MEDS: piperacillin-tazobactam 3.375 GM in sodium chloride 0.9% (plus) 50 ML IV ×2 (08:12→15:53)
[2023-09-15] MEDS: insulin glargine 100 units/1 mL 60 UNIT SUBCUT (08:12)
[2023-09-15] MEDS: insulin lispro 100 unit/1 mL 10 UNIT SUBCUT ×2 (08:12→17:26)
[2023-09-15] MEDS: pregabalin 25 mg Capsule PO ×2 (08:13→17:30)
[2023-09-15] MEDS: docusate sodium 100 mg Capsule PO ×2 (08:13→17:27)
[2023-09-15] MEDS: amlodipine 10 mg Tablet PO (08:13)
[2023-09-15] MEDS: pantoprazole DR 40 mg Tablet PO (08:13)
[2023-09-15] MEDS: atorvastatin 40 mg Tablet PO (08:13)
--- NOTE | 2023-09-15 10:14 | PC.SOCIAL ---
IMM Update pg 2 of IMM updated and reviewed w/ patient. Copy provided and copy dated, initialed and placed in chart.
[2023-09-15 11:34] LABS: Glucose Point of Care 139 mg/dL (70-110)
--- NOTE | 2023-09-15 15:22 | P.PN_ITS ---
Subjective 2 Subjective: No new complaints today. States he would like to go home. Medications: Reviewed: Yes Vitals/I&O/Wt Last Vital Signs Temp 97.8 F 09/15/23 11:48 Pulse 60 09/15/23 11:48 Resp 16 09/15/23 11:48 BP 154/80 09/15/23 11:48 Pulse Ox 98 09/15/23 11:48 O2 Del Method Room Air 09/15/23 11:48 09/15/23 09/15/23 09/15/23 06:59 14:59 22:59 Intake Total 300 / 3077.5 650 / 650 Balance 300 / 3077.5 650 / 650 Weight last 48 hrs Weight 106.05 kg Weight 106.05 kg Weight 106.549 kg Weight 105.097 kg Physical Exam 2 Narrative: General: No acute distress, AO x3 HEENT: PERRLA, pupils bilaterally equal and reactive, pallors not present Chest: Normal vesicular breath sounds, no added sounds, equal good air entry bilaterally CVS: S1-S2 regular, no murmurs, no tachycardia, no gallops, no rubs Abdomen: Soft, nontender, no organomegaly, bowel sounds present Neuro: No focal deficits, no facial deformity, AO x3, power 5/5 in all limbs Data 09/15/23 05:36 09/15/23 05:36 Micro: Microbiology 09/13/23 15:52 Gram Stain - Final Toe - Left Big Abscess Culture - Preliminary 09/13/23 13:57 Blood Culture - Preliminary Blood NEGATIVE TO DATE 09/13/23 14:00 Blood Culture - Preliminary Blood NEGATIVE TO DATE A&P Assessment and plan (1) Cellulitis and abscess of toe of left foot: Involving the left great toe, progressively worsening over the last week or so despite initiation of appropriate outpatient antibiotic therapy and management (2) Cellulitis of great toe, left: And abscess with findings concerning for early osteomyelitis despite plain x- rays of foot (3) Failure of outpatient treatment: Has been on Augmentin and doxycycline since09/09 with progression of infection noted (4) Diabetes mellitus, type II: On prison insulin (degludec and lispro) and metformin. Has poorly controlled diabetes with last A1c on 07/12/23 at 9.9. Qualifiers: Diabetes mellitus vermin exterminator insulin use: with vermin exterminator use Diabetes mellitus complication status: with neurologic complications Diabetes mellitus complication detail: with polyneuropathy Qualified Code(s): E11.42 - Type 2 diabetes mellitus with diabetic polyneuropathy; Z79.4 - exterminator helper termite (current) use of insulin (5) Essential hypertension, benign: Chronically on amlodipine, currently suboptimally controlled blood pressure but may be in part due to not having had his usual pain medicine as scheduled (6) Chronic kidney disease: Chronic kidney disease stage II, currently with slight increase from baseline bun/creatinine Qualifiers: Chronic kidney disease stage: stage 2 (mild) Qualified Code(s): N18.2 - Chronic kidney disease, stage 2 (mild) (7) Mixed hyperlipidemia: Chronically on statin therapy (8) Diastolic CHF: By history, chronic, may have an acute component versus worsening COPD. EF on last echo in 2020 59% with grade I/IV diastolic dysfunction. Not on diuretics or other focused treatment chronically. Does report dyspnea on exertion with decreasing distances lately. (9) COPD (chronic obstructive pulmonary disease): Not definitively acute acute, not on focussed treatment, former smoker. He has been having increasing issues with dyspnea on exertion that could be indicative of progressively worsening COPD versus CHF. No productive cough to suggest acute bronchitis. Qualifiers: COPD type: unspecified COPD Qualified Code(s): J44.9 - Chronic obstructive pulmonary disease, unspecified (10) YULI (obstructive sleep apnea): Not on Cpap or home oxygen at night (11) BPH (benign prostatic hyperplasia): Long standing diagnosis, not currently on treatment Qualifiers: Lower urinary tract symptom presence: symptoms present Lower urinary tract symptom detail: nocturia Qualified Code(s): N40.1 - Benign prostatic hyperplasia with lower urinary tract symptoms; R35.1 - Nocturia (12) Chronic back pain: Chronically on hydrocodone, tizanidine. Controlled substances managed by Dr Can. PDMP checked by me on 09/13/23 with only provider and one pharmacy listed for controlled substances. Plan History of oropharyngeal cancer status post surgical intervention x 2, doing well Takes hydroxyzine chronically for insomnia On daily aspirin empirically Takes vitamin D for vitamin D deficiency Lower extremity edema left lower extremity, may be from infection left foot, chf, but no right lower extremity edema noted Inpatient admission Podiatry consultation, discussed with Dr. Cordon plans of care as outlined Continue vancomycin and Zosyn Follow-up pending cultures Repeat CRP in the morning Discussed with patient tentative plan for surgical debridement in the next couple of days along with planned preoperative evaluation IV fluids overnight Recheck renal function in the morning If renal function improved, will plan on MRI in the morning with and without contrast Venous duplex of the left lower extremity secondary to edema Monitor overall volume status for worsening with planned fluids Check proBNP EKG and troponin Echocardiogram secondary to complaints of chest pain and worsening dyspnea on exertion in a patient who may require surgical debridement this hospital stay Will continue long-acting insulin with Lantus 60 units daily (uses Tresiba 96 units daily at home) Will continue lispro at 10 units 3 times a day with meals plus moderate dose sliding scale insulin 3 times a day with meals (at home using 30 units subcu 3 times daily with meals) Hypoglycemia protocol has been ordered Holding home metformin Continue home amlodipine Continue home statin therapy Daily weights and strict I's and O's, may have to consider diuretic therapy during course of hospital stay Add breathing treatments Monitor need for oxygen with sleep, not inclined to consider utilizing CPAP Monitor need to initiate alpha blockers for BPH Continue home hydrocodone and tizanidine Continue home hydroxyzine Currently holding home weekly vitamin D2 Currently holding home aspirin VTE prophylaxis: Lovenox, which will need to be held preprocedure GI Prophylaxis: PPI Antibiotics: Vancomycin and Zosyn initiated 09/13/2023 Pending studies: Blood and wound cultures, ordered MRI, ordered proBNP, Telemetry: not currently indicated Boyd: not currently indicated Line(s): peripheral IVs Disposition plan: Home with outpatient follow up anticipated at this point in time. Patient's daughter and granddaughter live with him and could potentially help him with wound care. He follows at the clinic in [place]. Code Status: Full Code Supportive care otherwise Findings, concerns and plans were discussed with patient and he was given an opportunity to ask questions Plan for today: Continue IV antibiotics piperacillin/tazobactam and vancomycin. Await wound cultures taken yesterday in the emergency room. Would prefer to continue IV antibiotics over the next 24 to 48 hours given recent failure of outpatient medical therapy. Discontinue IV fluids. MRI taken today without signs of osteomyelitis. Surgical intervention deferred for now. Plan for today September 15, 2023. Continue IV antibiotics. Clinically improving with the same. Awaiting wound cultures to guide transition to oral antibiotics. If cultures remain unrevealing by tomorrow, would likely need to design an empiric course of antibiotics which would include pseudomonal and MRSA coverage. Attestations 2 Medical Necessity Statement*: Awaiting culture data to guide transition to oral antibiotics. Coding Level of Care Code Acute Code for [facility] Fwd Diagnoses Cellulitis and abscess of toe of left foot L03.032; L02.612 Cellulitis of great toe, left L03.032 Failure of outpatient treatment Z78.9 Type 2 diabetes mellitus with diabetic polyneuropathy, with long-term current use of insulin E11.42; Z79.4 Diabetes mellitus prison insulin use: with prison use Diabetes mellitus complication status: with neurologic complications Diabetes mellitus complication detail: with polyneuropathy Essential hypertension, benign I10 Stage 2 chronic kidney disease N18.2 Chronic kidney disease stage: stage 2 (mild) Mixed hyperlipidemia E78.2 Diastolic CHF I50.30 Chronic obstructive pulmonary disease, unspecified COPD type J44.9 COPD type: unspecified COPD YULI (obstructive sleep apnea) G47.33 Benign prostatic hyperplasia with nocturia N40.1; R35.1 Lower urinary tract symptom presence: symptoms present Lower urinary tract symptom detail: nocturia Chronic back pain M54.9; G89.29
[2023-09-15 16:39] LABS: Glucose Point of Care 174 mg/dL (70-110)
[2023-09-15] MEDS: sennosides 8.6 mg Tablet 17.2 MG PO (20:30)
[2023-09-15] MEDS: enoxaparin 40 mg/0.4 mL Syringe SUBCUT (20:31)
[2023-09-15 20:50] LABS: Glucose Point of Care 383 mg/dL (70-110)
[2023-09-16] MEDS: piperacillin-tazobactam 3.375 GM in sodium chloride 0.9% (plus) 50 ML IV ×2 (00:10→08:28)
[2023-09-16] MEDS: HYDROcodone-acetaminophen 10-325 mg Tablet 1 TAB PO ×2 (03:24→08:27)
[2023-09-16] MEDS: tizanidine 4 mg Tablet PO (03:25)
[2023-09-16 04:00] VITALS: BP 151/84; PULSE 52; RESP 17; TEMP 36.8; O2SAT 97
[2023-09-16 06:31] LABS: Glucose Point of Care 191 mg/dL (70-110)
[2023-09-16] MEDS: insulin lispro 100 unit/1 mL 10 UNIT SUBCUT ×2 (06:36→11:39)
--- NOTE | 2023-09-16 06:50 | PM.PN ---
Subjective Subjective: Patient seen bedside this a.m., denies any acute events overnight. Denies any pain in the left lower extremity. Patient denies any subjective nausea, vomiting, fever, chills, shortness of breath or chest pain. Vitals/I&O/Wt Last Vital Signs Temp 98.2 F 09/16/23 04:00 Pulse 52 L 09/16/23 04:00 Resp 17 09/16/23 04:00 BP 151/84 09/16/23 04:00 Pulse Ox 97 09/16/23 04:00 O2 Del Method Room Air 09/15/23 15:57 09/15/23 09/15/23 09/16/23 14:59 22:59 06:59 Intake Total 650 / 650 340 / 990 300 / 1290 Output Total 300 / 300 Balance 650 / 650 340 / 990 0 / 990 Weight last 48 hrs Weight 242 lb 1.6 oz Weight 233 lb 12.8 oz Weight 233 lb 12.8 oz Physical Exam Narrative: GENERAL: Patient is alert and oriented ?3 and in no acute distress. The following is a focused bilateral lower extremity exam. VASCULAR: Dorsalis pedis palpable +2 bilaterally, posterior tibial arteries palpable +2. Capillary refill time less than 3 seconds to the distal hallux bilaterally. Calf is supple and nontender proximally and distally. Decrease in pedal hair growth bilaterally. NEUROLOGICAL: Protective sensation intact 0/10 sites, tested with [place] Vy monofilament to bilateral feet. DERMATOLOGICAL: Nearly resolved erythema left great toe, wound has granular base and is clinically stable and improved. No proximal pagetic streaking, no purulence. MUSCULOSKELETAL: No crepitus with soft tissue palpation and no pain to palpation. Data 09/15/23 05:36 09/15/23 05:36 Micro: Microbiology 09/13/23 15:52 Gram Stain - Final Toe - Left Big Abscess Culture - Preliminary A&P Assessment and plan (1) Diabetic peripheral neuropathy associated with type 2 diabetes mellitus: (2) Non-pressure chronic ulcer of other part of left foot with fat layer exposed: (3) Cellulitis of left foot: Plan 68-year-old diabetic male with peripheral neuropathy presents with [place] grade 2 ulcer left great toe and cellulitis streaking to the left forefoot, failed outpatient oral antibiotics 3 days of doxycycline and Augmentin. . Clinical improvement appreciated with empiric IV antibiotics vancomycin and Zosyn, Wound culture pending, no growth, likely suppressed from doxycycline and Augmentin taken prior to culture. Right foot MRI negative for acute osteomyelitis, negative for drainable abscess Clinical improvement has been achieved left great toe with empiric IV antibiotics. Patient okay for discharge from podiatry standpoint. Recommending mupirocin ointment topically 3 times daily to the left great toe. Recommend oral antibiotics per hospitalist at discharge, follow-up in podiatry clinic. Attestations Medical Necessity Statement*: Patient requiring antibiotic therapy for diabetic foot infection having failed outpatient antibiotics left great toe with cellulitis Coding Level of Care Code Acute Code for [facility] Fwd Diagnoses Diabetic peripheral neuropathy associated with type 2 diabetes mellitus E11.42 Non-pressure chronic ulcer of other part of left foot with fat layer exposed L97.522 Cellulitis of left foot L03.116
[2023-09-16 07:40] VITALS: BP 138/80; PULSE 54; RESP 15; TEMP 36.4; O2SAT 94
[2023-09-16 08:09] VITALS: PULSE 60; RESP 18; O2SAT 97
[2023-09-16] MEDS: pantoprazole DR 40 mg Tablet PO (08:27)
[2023-09-16] MEDS: pregabalin 25 mg Capsule PO (08:27)
[2023-09-16] MEDS: insulin glargine 100 units/1 mL 60 UNIT SUBCUT (08:27)
[2023-09-16] MEDS: atorvastatin 40 mg Tablet PO (08:27)
[2023-09-16] MEDS: amlodipine 10 mg Tablet PO (08:27)
[2023-09-16] MEDS: docusate sodium 100 mg Capsule PO (08:27)
[2023-09-16] MEDS: insulin lispro 100 unit/1 mL SUBCUT (08:28)
[2023-09-16 11:11] LABS: Glucose Point of Care 123 mg/dL (70-110)
[2023-09-16 11:36] VITALS: BP 176/76; PULSE 81; RESP 15; TEMP 36.6; O2SAT 96
[2023-09-16 12:54] VITALS: BP 176/76; PULSE 81; RESP 15; TEMP 36.6; O2SAT 96
--- NOTE | 2023-09-16 14:57 | PM.DCS ---
Discharge Providers Date of Admission: 09/13/23 15:28 Date of Discharge: September 16, 2023 Attending Provider at Admission: Maria G Gary MD Attending Provider at Discharge: Kathy Hughes MD Primary Care Provider: Yong Garland MD Diagnoses at Discharge Discharge Diagnosis (1) Diabetic peripheral neuropathy associated with type 2 diabetes mellitus: Status: Acute (2) Non-pressure chronic ulcer of other part of left foot with fat layer exposed: Status: Acute (3) Cellulitis of left foot: Status: Acute Reason for Visit Reason for Visit: left foot toe--diabetic--[facility] sent over Hospital Course Hospital Course David Mota is a 68 year old male directed to the emergency department after having failed outpatient antibiotics for left diabetic foot infection. He initially observed a wound last week after a trip to [place] where he was waiting in a [place], states he was wearing shoes. Shortly thereafter he got redness and had a blister that needed to pop. He was placed on doxycycline and Augmentin on Wednesday, September 10, 2023, returns to clinic for reevaluation Wednesday today 09/13/2023 without improvement and was directed to the emergency department for hospital admission for empiric IV antibiotics MRI and surgical debridement. He underwent MRI of the foot which was negative for any acute osteomyelitis. There was no well-defined drainable abscess. There was small amount of fluid in the first MTP and DIP joints. His foot showed improvement with empiric IV antibiotic course with piperacillin/tazobactam and vancomycin. Aspirate culture was taken in the emergency room upon admission which has thus far remained negative. This may be because patient was on antibiotics prior to admission. Given failure of previous treatment course with Augmentin and doxycycline, antibiotics were changed to oral ciprofloxacin 500 twice daily and linezolid 600 mg p.o. twice daily at the time of discharge to include pseudomonal and MRSA coverage. He is recommended to follow-up closely with Dr. Cordon as an outpatient to ensure continued improvement. Instructed to return to the emergency room for fever more than 100.4, increased redness tenderness or discharge from the foot. Blood cx negative. Physical Exam Narrative: General: No acute distress, AO x3 HEENT: PERRLA, pupils bilaterally equal and reactive, pallors not present Chest: Normal vesicular breath sounds, no added sounds, equal good air entry bilaterally CVS: S1-S2 regular, no murmurs, no tachycardia, no gallops, no rubs Abdomen: Soft, nontender, no organomegaly, bowel sounds present Neuro: No focal deficits, no facial deformity, AO x3, power 5/5 in all limbs Discharge Data Studies Completed and Pending Completed Studies During Hospitalization Category Date Time Status XR foot LT min 3V* [id number] Stat Exams 09/13/23 12:26 Completed MR foot LT wo/w con [id number] Routine MRI 09/14/23 09:30 Completed CV. echo complete* [id number] Routine Ultrasound 09/13/23 20:38 Completed US venous duplex lower extremity LT [CV venous duplex Ultrasound 09/13/23 20:[address] [place] [id number]] Routine Pending at discharge Category Date Time Status Abscess Culture and Gram Stain Stat Lab 09/13/23 15:52 Results Blood Culture Stat Lab 09/13/23 14:00 Results Vancomycin Trough Timed Lab 09/16/23 17:00 Ordered Radiology Impressions Foot X-Ray 09/13/23 12:26 IMPRESSION: No acute findings. Foot MRI 09/14/23 09:30 IMPRESSION: 1. No evidence of acute osteomyelitis. 2. Ulceration involving the distal phalanx great toe with associated cellulitis. No well-defined drainable abscess. 3. Small mount of fluid in the first MTP and DIP joints. 4. Subcutaneous edema with cellulitis involving the distal forefoot and distal intertarsal soft tissues. Laboratory Results WBC 9.53 10^3/uL (3.29-11.43) 09/15/23 05:36 RBC 3.92 10^6/uL (3.85-5.65) 09/15/23 05:36 Hgb 11.50 g/dL (11.27-16.99) 09/15/23 05:36 Hct 35.9 % (37-53) L 09/15/23 05:36 MCV 91.6 fl (82-101) 09/15/23 05:36 MCH 29.3 pg (27-33) 09/15/23 05:36 MCHC 32.0 g/dL (30-55) 09/15/23 05:36 RDW 11.9 % (12.1-15.1) L 09/15/23 05:36 Plt Count 280 10^3/cmm (157-399) 09/15/23 05:36 MPV 9.7 fL (7.4-10.4) 09/15/23 05:36 Neut % (Auto) 59.7 % 09/15/23 05:36 Lymph % (Auto) 30.4 % 09/15/23 05:36 [place] % (Auto) 6.3 % 09/15/23 05:36 Eos % (Auto) 2.7 % 09/15/23 05:36 Baso % (Auto) 0.7 % 09/15/23 05:36 Neut # (Auto) 5.68 10^3/uL (1.8-7.7) 09/15/23 05:36 Lymph # (Auto) 2.9 10^3/uL (0.8-4.8) 09/15/23 05:36 [place] # (Auto) 0.6 10^3/uL (0.2-0.9) 09/15/23 05:36 Eos # (Auto) 0.3 10^3/uL (0.0-0.8) 09/15/23 05:36 Baso # (Auto) 0.1 10^3/uL (0.0-0.1) 09/15/23 05:36 Nucleated RBC % (auto) 0 % 09/15/23 05:36 Nucleated RBCs # 0.0 /100WBC 09/15/23 05:36 ESR 31 mm/hr (0-10) H 09/13/23 13:57 Sodium 138 mmol/L (136-145) 09/15/23 05:36 Potassium 5.0 mmol/L (3.5-5.1) 09/15/23 05:36 Chloride 107 mmol/L (98-107) 09/15/23 05:36 Carbon Dioxide 23 mmol/L (22-29) 09/15/23 05:36 Anion Gap 13.0 (5-19) 09/15/23 05:36 BUN 20 mg/dL (8-23) 09/15/23 05:36 Creatinine 1.2 mg/dL (0.7-1.2) 09/15/23 05:36 GFR Calculation 60.6 mL/min (90-130) L 09/15/23 05:36 Glucose 166 mg/dL (65-115) H 09/15/23 05:36 POC Glucose 123 mg/dL (70-110) H 09/16/23 11:03 Calculated Osmolality 292 mOsm/kg (285-295) 09/15/23 05:36 Calcium 9.0 mg/dL (8.5-10.5) 09/15/23 05:36 Magnesium 1.7 mg/dL (1.7-2.3) 09/14/23 06:12 Total Bilirubin 0.4 mg/dL (0.15-1.2) 09/15/23 05:36 AST 14 U/L (0-40) 09/15/23 05:36 ALT 11 U/L (0-41) 09/15/23 05:36 Alkaline Phosphatase 59 U/L (40-130) 09/15/23 05:36 Troponin T 5th Gen ng/L 20 ng/L (0-15) H 09/14/23 06:12 C-Reactive Protein 42.2 mg/L (0.0-4.9) H 09/14/23 06:12 NT-Pro-B Natriuret Pep 172 pg/mL (0-125) H 09/14/23 06:12 Total Protein 6.7 g/dL (6.6-8.7) 09/15/23 05:36 Albumin 3.3 g/dL (3.5-5.2) L 09/15/23 05:36 Globulin 3.4 g/dL (1.3-4.6) 09/15/23 05:36 Urine Color Yellow (Yellow) 09/15/23 05:50 Urine Appearance Clear (CLEAR) 09/15/23 05:50 Urine pH 5 (5-7) 09/15/23 05:50 Ur Specific [place] 1.015 (1.005-1.030) 09/15/23 05:50 Urine Protein Neg (Negative) 09/15/23 05:50 Urine Glucose (UA) 1+ (Normal) H 09/15/23 05:50 Urine Ketones Negative (Negative) 09/15/23 05:50 Urine Blood Neg (Negative) 09/15/23 05:50 Urine Nitrate Negative (Negative) 09/15/23 05:50 Urine Bilirubin Neg (Negative) 09/15/23 05:50 Urine Urobilinogen Norm mg/dL (Negative) 09/15/23 05:50 Ur Leukocyte Esterase Negative (Negative) 09/15/23 05:50 Vitals Last Vital Signs Temp 97.8 F 09/16/23 12:54 Pulse 81 09/16/23 12:54 Resp 15 09/16/23 12:54 BP 176/76 09/16/23 12:54 Pulse Ox 96 09/16/23 12:54 O2 Del Method Room Air 09/16/23 11:36 Discharge Plan Discharge Patient Disposition: Home Condition: Stable Prescriptions: New linezolid 600 mg tablet 600 mg PO BID 10 Days Qty: 20 0RF ciprofloxacin HCl 500 mg tablet 500 mg PO Q12H 10 Days Qty: 20 0RF Continued hydrocodone-acetaminophen 10-325 mg tablet 1 tab PO Q4H PRN (Reason: pain) 30 Days Qty: 180 0RF aspirin [[place] Low Dose Aspirin] 81 mg tablet,delayed release (DR/EC) 81 mg PO DAILY insulin lispro 100 unit/mL insulin pen See Rx Instructions .ROUTE .COMPLEX Qty: 30 5RF Dose Instruction: INJECT 30 UNITS subcutaneously three times daily As Needed for type 2 diabetes, Max Daily Dose: 120 units Rx Instructions: INJECT 30 UNITS subcutaneously three times daily As Needed for type 2 diabetes, Max Daily Dose: 120 units metformin 1,000 mg tablet 1,000 mg PO BID 30 Days Qty: 60 0RF Tresiba FlexTouch U-200 200 unit/mL (3 mL) insulin pen See Rx Instructions .ROUTE .COMPLEX Qty: 46 0RF Dose Instruction: INJECT 96 UNITS SUB-Q DAILY Rx Instructions: INJECT 96 UNITS SUB-Q DAILY amlodipine 10 mg tablet 10 mg PO DAILY atorvastatin 20 mg tablet 20 mg PO DAILY tizanidine 4 mg tablet 4 - 8 mg PO BEDTIME PRN (Reason: muscle spasticity) hydroxyzine HCl 25 mg tablet 25 mg PO BID PRN (Reason: Insomnia) ergocalciferol (vitamin D2) 1,250 mcg (50,000 unit) capsule 1,250 mcg PO Q7D Discontinued doxycycline hyclate 100 mg tablet 100 mg PO BID 10 Days Qty: 20 0RF amoxicillin-pot clavulanate 875-125 mg tablet 1 tab PO BID 10 Days Qty: 20 0RF No Action (DME) FreeStyle Jesse 2 Leona Misc See Rx Instructions .Route Qty: 1 2RF Rx Instructions: as directed (DME) pen needle, diabetic [Comfort EZ Pen [place]] 32 gauge x 5/32 needle See Rx Instructions .ROUTE .COMPLEX Qty: 100 6RF Dose Instruction: USE DAILY WITH LEVEMIR DIRECTED Rx Instructions: as directed (DME) FreeStyle Jesse 2 Sensor Kit See Rx Instructions .ROUTE .COMPLEX Qty: 6 1RF Dose Instruction: USE TO monitor BLOOD SUGAR Rx Instructions: USE TO monitor BLOOD SUGAR Discharge Orders: Discharge Order (Routine); Ordered 09/16/23 Ordered By: Kathy Hughes Referrals: Yong Garland MD [Primary Care Provider] - (We have notified your physician's clinic of the need for a follow-up appointment to be scheduled. If you have not heard from them within the next 2 business days, please call them directly. ) Agus Cordon DPM [Physician] - 09/23/23 7:30 am Discharge Diet: Diabetic Discharge Activity: Limit activity as instructed Patient Instructions: COPD, Ciprofloxacin (By mouth), Linezolid (By mouth), Cellulitis (GEN), Acute Wound Care (DC), COPD Stoplight, Opioid Safety, Post Anesthesia Care Activity Restrictions/Additional Instructions: Instructions from Dr. Cordon Please apply mupirocin topical antibiotic ointment to left foot wound with Band-Aid covering 3 times daily Please elevate left foot while resting Please utilize cam boot at all times when weightbearing to left lower extremity planning on cam boot for the next 2 weeks Follow-up in in podiatry clinic at [facility] with Dr. Cordon next , 09/23/2023 at 7:30 AM Contact podiatry clinic with any questions or concerns [phone] Discharge Attestations Time Spent in Discharge Care*: greater than 30 min Quality Metrics Clinical Quality Measures [ No reported AMI, CVA or VTE this stay] Coding Level of Care Code Acute Code for [facility] Fwd Diagnoses Diabetic peripheral neuropathy associated with type 2 diabetes mellitus E11.42 Non-pressure chronic ulcer of other part of left foot with fat layer exposed L97.522 Cellulitis of left foot L03.116
== END 2023-09-16 12:57 | disposition home or self-care (01) | DRG 580 ==
LOC: ER 13:42 → ER IP 15:29 → MEDSURG 17:15
PROVIDERS: Admitting Provider Hospitalist; Emergency Provider Physician Assistant; PCP Family Medicine; Visit Provider Student in an Organized Health Care Education/Training Program
DX: L03.032 Cellulitis of left toe (principal); I13.0 Hypertensive heart and chronic kidney disease with heart failure and stage 1 through stage 4 chronic kidney disease, or unspecified chronic kidney disease; I50.32 Chronic diastolic (congestive) heart failure; E11.621 Type 2 diabetes mellitus with foot ulcer; L97.522 Non-pressure chronic ulcer of other part of left foot with fat layer exposed; E11.65 Type 2 diabetes mellitus with hyperglycemia; E11.42 Type 2 diabetes mellitus with diabetic polyneuropathy; E11.22 Type 2 diabetes mellitus with diabetic chronic kidney disease; F17.210 Nicotine dependence, cigarettes, uncomplicated; N18.2 Chronic kidney disease, stage 2 (mild); Z79.4 Long term (current) use of insulin; Z79.84 Long term (current) use of oral hypoglycemic drugs; J44.9 Chronic obstructive pulmonary disease, unspecified; M54.9 Dorsalgia, unspecified; G89.29 Other chronic pain; Z79.82 Long term (current) use of aspirin; E78.5 Hyperlipidemia, unspecified; N40.0 Benign prostatic hyperplasia without lower urinary tract symptoms; G47.33 Obstructive sleep apnea (adult) (pediatric); E55.9 Vitamin D deficiency, unspecified; Z85.818 Personal history of malignant neoplasm of other sites of lip, oral cavity, and pharynx
CPT/HCPCS: 36415; 36416; 73630; 73720; 80048; 80053; 81003; 82962; 83735; 83880; 84484; 85025; 85651; 86140; 87040; 87070; 87075; 87205; 93005; 93306; 93971; 96365; 96366; 96367; 96372; 97760; 99285; A9577; J1650; J1815; J2543; J3370; J7030; J7050; L4361

== ENCOUNTER → 2023-09-23 07:08 | Outpatient (BNVA) | payer MEDICARE, MEDICAID, SELFPAY | PROVIDERS: PCP Family Medicine; Visit Provider Podiatrist Foot & Ankle Surgery | DX: L03.116 Cellulitis of left lower limb (principal); E11.42 Type 2 diabetes mellitus with diabetic polyneuropathy; Z79.4 Long term (current) use of insulin; L97.522 Non-pressure chronic ulcer of other part of left foot with fat layer exposed; E11.621 Type 2 diabetes mellitus with foot ulcer; Z79.84 Long term (current) use of oral hypoglycemic drugs | CPT/HCPCS: 99213 ==

== ENCOUNTER → 2023-09-30 08:32 | Outpatient (BNVA) | payer MEDICARE, MEDICAID, SELFPAY | PROVIDERS: PCP Family Medicine; Visit Provider Podiatrist Foot & Ankle Surgery | DX: L03.116 Cellulitis of left lower limb (principal); E11.42 Type 2 diabetes mellitus with diabetic polyneuropathy; Z79.4 Long term (current) use of insulin; L97.522 Non-pressure chronic ulcer of other part of left foot with fat layer exposed; E11.621 Type 2 diabetes mellitus with foot ulcer; Z79.84 Long term (current) use of oral hypoglycemic drugs | CPT/HCPCS: 99213 ==

== ENCOUNTER → 2023-10-14 07:01 | Outpatient (BNVA) | payer MEDICARE, MEDICAID, SELFPAY | PROVIDERS: PCP Family Medicine; Visit Provider Podiatrist Foot & Ankle Surgery | DX: L03.116 Cellulitis of left lower limb (principal); L97.522 Non-pressure chronic ulcer of other part of left foot with fat layer exposed; E11.42 Type 2 diabetes mellitus with diabetic polyneuropathy; M21.41 Flat foot [pes planus] (acquired), right foot; M21.42 Flat foot [pes planus] (acquired), left foot; E11.621 Type 2 diabetes mellitus with foot ulcer; Z79.4 Long term (current) use of insulin; Z79.84 Long term (current) use of oral hypoglycemic drugs | CPT/HCPCS: 99213 ==

== ENCOUNTER → 2023-10-22 11:00 | Outpatient (BNVA) | payer MEDICARE, MEDICAID, SELFPAY | PROVIDERS: PCP Family Medicine; Visit Provider Internal Medicine | DX: E11.42 Type 2 diabetes mellitus with diabetic polyneuropathy (principal); Z79.4 Long term (current) use of insulin; E78.2 Mixed hyperlipidemia; Z79.84 Long term (current) use of oral hypoglycemic drugs | CPT/HCPCS: 99214 ==

== ENCOUNTER → 2023-10-27 10:44 | Outpatient (BNVA) | payer MEDICARE, MEDICAID, SELFPAY | PROVIDERS: PCP Family Medicine; Visit Provider Nurse Practitioner Family | DX: N18.30 Chronic kidney disease, stage 3 unspecified (principal); E55.9 Vitamin D deficiency, unspecified | CPT/HCPCS: 80069; 82043; 82306; 82310; 83970; 85025 ==

== ENCOUNTER → 2023-10-28 07:28 | Outpatient (BNVA) | payer MEDICARE, MEDICAID, SELFPAY | PROVIDERS: PCP Family Medicine; Visit Provider Podiatrist Foot & Ankle Surgery | DX: L03.116 Cellulitis of left lower limb (principal); E11.42 Type 2 diabetes mellitus with diabetic polyneuropathy; M21.41 Flat foot [pes planus] (acquired), right foot; M21.42 Flat foot [pes planus] (acquired), left foot; L97.521 Non-pressure chronic ulcer of other part of left foot limited to breakdown of skin; E11.621 Type 2 diabetes mellitus with foot ulcer; Z79.4 Long term (current) use of insulin; Z79.84 Long term (current) use of oral hypoglycemic drugs | CPT/HCPCS: 99213 ==

== ENCOUNTER → 2023-12-09 06:53 | Outpatient (BNVA) | payer MEDICARE, MEDICAID, SELFPAY | PROVIDERS: PCP Family Medicine; Visit Provider Podiatrist Foot & Ankle Surgery | DX: L03.116 Cellulitis of left lower limb (principal); E11.42 Type 2 diabetes mellitus with diabetic polyneuropathy; M21.41 Flat foot [pes planus] (acquired), right foot; M21.42 Flat foot [pes planus] (acquired), left foot; Z79.4 Long term (current) use of insulin; Z79.84 Long term (current) use of oral hypoglycemic drugs | CPT/HCPCS: 99213 ==

== ENCOUNTER → 2024-02-11 08:01 | Outpatient (BNVA) | payer MEDICARE, MEDICAID, SELFPAY | PROVIDERS: PCP Family Medicine; Visit Provider Internal Medicine | DX: E11.42 Type 2 diabetes mellitus with diabetic polyneuropathy (principal); Z79.4 Long term (current) use of insulin; E78.2 Mixed hyperlipidemia; I10 Essential (primary) hypertension; Z79.84 Long term (current) use of oral hypoglycemic drugs | CPT/HCPCS: 99214 ==

== ENCOUNTER 2024-03-30 17:40 | Inpatient (IN) | payer MEDICARE, MEDICAID, SELFPAY ==
[2024-03-30] VITALS (20 sets, daily range): BP systolic 111–166; BP diastolic 64–95; PULSE 70–94; RESP 12–25; TEMP 36.7; O2SAT 91–98; BMI 32.5
--- NOTE | 2024-03-30 17:07 | XACV_ITS ---
Exam Room: [facility] Ht: 183 cm Wt: 104 kg BSA: 2.33 m2 Gender: Male : 1955 Any Known Allergies: Other Exam Priority: Routine Procedure(s): Procedure Description: Diagnostic procedure Procedure Description: PCI procedure Procedure Description: Left Heart Catheterization Procedure Description: Drug Eluting Coronary Stent Procedure Description: PTCA Procedure Description: Coronary Thrombectomy Procedure Description: Miscellaneous Procedure Description: ACT Procedure Description: Coronary Angiography Diagnostic Cath Status: Emergency Diagnostic Findings * Left Main has no significant disease. * Left Anterior Descending has moderate 50% proximal stenosis. Mid to distal LAD has moderate to severe 60-70% stenosis. * Circumflex has luminal irregularities. High OM 1 branch has a severe proximal vessel 80-90% stenosis. Medium sized vessel. * Proximal Right Coronary Artery: Subtotally occluded with heavy thrombus burden in proximal to mid vessel. Culprit artery for STEMI. * Coronary angiography shows right dominance. PCI Status: Emergency PCI Indication: STEMI - Immediate PCI for STEMI Interventional Findings * Proximal to mid Right Coronary Artery: 100% stenosis treated with a AB TREK 2.50X12 RX BALLOON, MDT ELEAZAR EUPHORA RX 3.64I89NB BALLOON, FRED R NIEVES 3.5X26 SALAS, T R NIEVES 3.5X38 SALAS, T R NIEVES 3.5X15 SALAS, and MDMacy BUSH EUPHORA RX 3.74E09HA BALLOON. * Procedure detail:We engaged RCA initially with JR 4 guide catheter however because of poor guide support, we switched guide catheter to AL 0.75. Runthrough wire was used to cross the occluded segment. Penumbra mechanical thrombectomy was used. We then predilated the stenosis 2.5x12 mm semicompliant balloon. We then used manual aspiration thrombectomy catheter. this was followed by predilation with 3.0x15mm NC balloon. We then placed 3.5x26mm Resolute nieves SALAS with guideliner support in the mid RCA. This was followed by an overlapping proximal vessel stent measuring 3.5x38mm. This was followed by an overlapping stent in ostial position measuring 3.5x15mm. At this time proximal stents were post dilated with [id number] NC balloon.At this time final angiogram was performed that showed excellent stent expansion and no residual stenosis. PLV branch had distal embolization of thrombus however will be treated with aggrastat. Conclusions 1. Subtotal thrombotic occlusion of proximal to mid RCA s/p successful revascularization with 3 stents. 2. Moderate to severe proximal and mid LAD stenosis. Will be assessed with stress test to determine if requires stenting. Significant OM stenosis. Medium sized vessel. PCI vs medical therapy after outpatient discussion. 3. Proximal Right Coronary Artery was treated with a Balloon, Balloon, Drug Eluting Stent, Drug Eluting Stent, Drug Eluting Stent, and Balloon. Recommendations * Dual antiplatelet therapy with aspirin and plavix for atleast 1 year. * Aggrastat for 4-6 hours. * Transfer to ICU. * High intensity statin therapy. * Outpatient stress test. Interventional RX Recommendation: PCI w/o planned CABG Diagnostic RX Recommendation: PCI w/o planned CABG Anticoagulation: Heparin Pressures Phase:Rest AO : 85 / 48 ( 67 ) @ 1:26:50 PM 99 / 47 ( 72 ) @ 1:26:50 PM 107 / 50 ( 76 ) @ 1:26:50 PM 147 / 87 ( 116 ) @ 1:26:50 PM 178 / 87 ( 126 ) @ 1:26:50 PM 179 / 87 ( 127 ) @ 1:26:50 PM 179 / 88 ( 127 ) @ 1:26:50 PM 182 / 89 ( 129 ) @ 1:26:50 PM 136 / 84 ( 109 ) @ 5:53:00 PM 126 / 73 ( 97 ) @ 5:58:00 PM LV : 474 / 468 / 96 @ 1:26:50 PM 2 / -1 / 0 @ 1:26:50 PM 188 / -1 / 42 @ 1:26:50 PM 188 / 0 / 41 @ 1:26:50 PM 186 / -2 / 40 @ 1:26:50 PM Valves Phase:DefaultPhase AV : 7.0 @ 7:26:51 PM AV Mean Gradient: 12.0 @ 7:26:51 PM 12.0 @ 7:26:51 PM Clinical Evaluation EBL: 5mL-10mL Procedural Details Current Diagnosis : STEMI. Transfer from [facility]. Patient received 4000 heparin IV, 600 mg plavix PO, Aspirin 324 mg PO at referring facility. Current diagnosis: STEMI; Inferior wall. Pre-Procedure Time Out. Identified patient by full name and date of as verbalized by the patient/guarantor. Does the consent match the physician's order: N/A Emergent. Accurate & Complete Informed Consent: Yes. Inpatient/Outpatient History & Physical on Chart: N/A Emergent. If H&P is completed, is and addenduem needed: N/A Emergent; If yes, is the addendum complete: N/A Emergent. Visualize and Verify Site with Patient/Guarantor: N/A. Relevant Radiology Images available: N/A Emergent. Pre-op teaching completed and patient verbalized understanding. The risks, benefits, and alternatives of sedation and/or procedure were discussed by physician. The patient agrees to continue. Procedure started. [facility] Clinical Fraility Score: 4: Vulnerable. Reed Cleaner Indications: Other. Chest Pain Symptom Assessment: Typical Angina Symptoms. Cardiovascular Instability: N/A,. Correct patient, site and procedure confirmed by cath team. PERRLA. Strong, equal hand manufacturing engineer chief bilaterally. Lungs clear x 5 lobes. IV Site on Arrival: 18 gauge in the right anticubital. A 22 gauge IV was started in the left hand using aseptic technique. IV Fluids: 0.9% NaCl at KVO. 0 mL infused prior to laboratory analyst. Pre Procedural Pulses: bilateral posterior tibial was Doppled. Pre Procedural Pulses: bilateral dorsalis pedis was Doppled. Pre Procedural Pulses: bilateral radial was 3+. Oxygen started at 3liters/min via nasal canula. right groin was prepped with chloroprep then draped in the usual sterile fashion. right radial was prepped with chloroprep then draped in the usual sterile fashion. Physician notified. Baseline sample Acquired. HR: 82 BPM. Physician arrived. Physician scrubbed in. Immediate Pre-Procedure Time Out. Correct Patient: Yes; Correct Procedure: Yes; Correct Site: Yes; Correct Patient Position: Yes; Correct Supplies: Yes; Dried Flammable Prep: Yes; Blood Products Available: N/A;. Lidocaine 1% infiltrated to the right radial. Arterial access obtained. 6 peruvian JR 4 guide catheter was inserted over the wire. Guide seated in the RCA. Runthrough guidewire was advanced through the guide catheter to lesion in the prox RCA. 2.0 X 8 balloon in for crossing support. balloon out. Wire out. Guide catheter out over the exchange wire. Delay in PCI related to other reason: Difficult vascular anatomy. 6 peruvian AL I guide catheter was inserted over the wire. Guide seated in the RCA. Runthrough guidewire was advanced through the guide catheter to lesion in the prox RCA. Guidewire advanced across lesion. cat rx INSERTED. Mechanical Thrombectomy of proximal RCA performed. Cat rx REMOVED. Inflation number : 1 A AB TREK 2.50X12 RX BALLOON was prepped and advanced across the Prox RCA , then inflated to 12 HARSHIL for 0:10 seconds. Inflation number: 2 The AB TREK 2.50X12 RX BALLOON was reinflated across the Prox RCA, to 12 HARSHIL for 0:08 seconds. Inflation number: 3 The AB TREK 2.50X12 RX BALLOON was reinflated across the Prox RCA, to 12 HARSHIL for 0:07 seconds. Inflation number: 4 The AB TREK 2.50X12 RX BALLOON was reinflated across the Prox RCA, to 14 HARSHIL for 0:09 seconds. Results checked. Inflation number: 5 The AB TREK 2.50X12 RX BALLOON was reinflated across the Prox RCA, to 14 HARSHIL for 0:08 seconds. Results checked. Balloon out. Pronto V4 manual aspiration catheter inserted. Manual thrombectomy performed of prox RCA. Pronto out over the wire. Inflation number : 6 A MDT NC EUPHORA RX [id number] BALLOON was prepped and advanced across the Prox RCA , then inflated to 16 HARSHIL for 0:14 seconds. Inflation number: 7 The MDT NC EUPHORA RX 3.44P31GD BALLOON was reinflated across the Prox RCA, to 14 HARSHIL for 0:09 seconds. Balloon out. Guideliner inserted. Inflation number: 8 The MDT NC EUPHORA RX 3.67H60CF BALLOON was reinflated across the Prox RCA, to 16 HARSHIL for 0:16 seconds. Inflation number: 9 The MDT NC EUPHORA RX 3.11V36SE BALLOON was reinflated across the Prox RCA, to 16 HARSHIL for 0:09 seconds. Inflation number: 10 The MDT NC EUPHORA RX 3.76A00LB BALLOON was reinflated across the Prox RCA, to 16 HARSHIL for 0:10 seconds. Inflation number: 11 The MDT NC EUPHORA RX 3.79B83IR BALLOON was reinflated across the Prox RCA, to 16 HARSHIL for 0:08 seconds. Balloon out. Results checked. ACT drawn. Results OUT OF RANGE HI seconds. Therapeutic limits - pre-heparin administration 90-150 seconds and monitoring heparin during a vascular procedure >250 seconds. Inflation Number : 12 A MDT R INEVES 3.5X26 SALAS -Lot Number# [id number] was prepped and advanced across the Prox RCA. The stent was deployed at 12 HARSHIL for 0:25 seconds. EXP 09/02/26. Results checked. Stent balloon out over the wire. Inflation number: 13 The MDT NC EUPHORA RX 3.03T16DW BALLOON was reinflated across the Prox RCA, to 14 HARSHIL for 0:10 seconds. Results checked. Balloon out. Inflation Number : 14 A MDT R NIEVES 3.5X38 SALAS -Lot Number# [id number] was prepped and advanced across the Prox RCA. The stent was deployed at 12 HARSHIL for 0:26 seconds. EXP 07/08/26. Stent balloon out over wire. Results checked. Inflation Number : 15 A MDT R NIEVES 3.5X15 SALAS -Lot Number# [id number] EXP 08/11/2026 was prepped and advanced across the Prox RCA. The stent was deployed at 14 HARSHIL for 0:23 seconds. Stent balloon out over wire. Results checked. Guideliner removed. Inflation number : 16 A MDT NC EUPHORA RX [id number] BALLOON was prepped and advanced across the Prox RCA , then inflated to 18 HARSHIL for 0:18 seconds. Inflation number: 17 The MDT NC EUPHORA RX 3.09P13IV BALLOON was reinflated across the Prox RCA, to 20 HARSHIL for 0:14 seconds. Inflation number: 18 The MDT NC EUPHORA RX 3.92E98KZ BALLOON was reinflated across the Prox RCA, to 20 HARSHIL for 0:12 seconds. Balloon out. Results checked. Multiple views taken of right coronary artery. Wire out. Catheter removed over the wire. ACT drawn. Results 218 seconds. Therapeutic limits - pre-heparin administration 90-150 seconds and monitoring heparin during a vascular procedure >250 seconds. A 5 peruvian TIG catheter in over wire. Multiple views taken of left coronary artery. ACT drawn. Results 292 seconds. Therapeutic limits - pre-heparin administration 90-150 seconds and monitoring heparin during a vascular procedure >250 seconds. Catheter dropped into the LV over the wire. EDP Sample taken: LV 188/-2,42; HR: 88 BPM; SpO2: 100%. EDP Sample taken: LV 188/0,41; HR: 88 BPM; SpO2: 100%. Pullback taken: LV 186/-3,40; AO 178/87(126); Mean: 12mmHg, Peak to Peak: 7mmHg, SEP: 20sec/min; HR: 100 BPM; SpO2: 100%. [id number]. Contrast type used: Omnipaque 300 mgI/mL, 500 mL bottle. Catheter removed over the wire. Physicain review of films. Physician scrubbed out. Admit Source: Transfer acute care facility. Post-op diagnosis: Subtotal occlusion of proximal to mid RCA; Post PCI with three SALAS. A TR Band was successful obtaining hemostatsis at the Right Radial artery insertion site. TR band placed. Hemostasis obtained. Post Procedure: Pulses reassessed and unchanged. PERRLA. Strong, equal hand manufacturing engineer chief bilaterally. No VTE prophylaxis required. Medication waste Lidocaine- 18 ml, Nitro- 49.8 mg, Heparin- 2000 units, Benadryl- 25 mg. Total IV fluids: 100 mL. Fluoro: 26:06. Complications: None. Estimated blood loss: 5mL-10mL. Responsiveness - Normal response to verbal stimuli; alert and oriented, PERRLA. Airway - Unaffected, no intervention required; spontaneous ventilation. Circulation: W/N/L, pulses unchanged. Nausea/Vomiting: No. Procedure completed. Patient transferred by wheelchair to ICU. Vital chart was stopped. Access Site Site: Right Radial artery Sheath Size: 6 Fr Hemostasis Method: TR Band Hemostasis Success: Successful Procedure Medications Start: 5:52 PM Stop: 5:52 PM Medication: Nitrogylcerin Amount: 200 mcg Route: I.A. Start: 5:55 PM Stop: 5:55 PM Medication: Versed 1 mg and Fentanyl 25 mcg Amount: 1 Route: I.V. Start: 5:52 PM Stop: 5:52 PM Medication: Versed 1 mg and Fentanyl 25 mcg Amount: 1 Route: I.V. Start: 5:56 PM Stop: 5:56 PM Medication: Heparin Amount: 6000 units Route: I.V. Start: 6:03 PM Stop: 6:03 PM Medication: Versed Amount: 1 mg Route: I.V. Start: 6:17 PM Stop: 6:17 PM Medication: Fentanyl Amount: 50 mcg Route: I.V. Start: 6:24 PM Stop: 6:24 PM Medication: Versed Amount: 1 mg Route: I.V. Start: 6:32 PM Stop: 6:32 PM Medication: Fentanyl Amount: 25 mcg Route: I.V. Start: 6:37 PM Stop: 6:37 PM Medication: Benadryl Amount: 25 mg Route: I.V. Start: 6:40 PM Stop: 6:40 PM Medication: Heparin Amount: 1000 units Route: I.V. Start: 6:43 PM Stop: 6:43 PM Medication: Fentanyl Amount: 50 mcg Route: I.V. Start: 6:51 PM Stop: 6:51 PM Medication: Aggrastat 12.5 mg/250 mL Amount: 53 ml Route: I.V. bolus Start: 6:51 PM Stop: 6:51 PM Medication: Aggrastat 12.5 mg/250 mL Amount: 19.1 ml/hr Route: I.V. drip Start: 7:01 PM Stop: 7:01 PM Medication: Heparin Amount: 2000 units Route: I.V. Start: 7:03 PM Stop: 7:03 PM Medication: Fentanyl Amount: 25 mcg Route: I.V. I, the attending physician, have reviewed and verified all procedure medications. Yes, all medications given per verbal order History/Risk Factors Hypertension: Yes Dyslipidemia: Yes Peripheral Arterial Disease (PAD): No Myocardial Infarction (OH): No Obesity: Yes Renal Disease: No Tobacco Use: Former Prior Interventions PCI: No CABG: No Valve Surgery: No Report Signatures Finalized by Edmund Fletcher MD on 04/09/2024 07:52 PM
--- NOTE | 2024-03-30 17:44 | P.HP_ITS ---
Providers/Chief Complaint 2 Admitting Physician: Edmund Fletcher MD/ Cardiology Primary Care Provider: Yong Garland MD Chief Complaint: stemi alert History of Present Illness David Mota is a 69 year old male with prior history of hypertension and diabetes who was transferred from outside hospital with chest pain. According to patient chest pain started yesterday morning. However it was on and off. Got more intense today. Went to the ER and had EKG that showed inferior wall ST elevation UT. He was transferred from there emergently. Brought straight to our Security Clerk for procedure Review of Systems 2 Card: Reports: chest pain Resp: Reports: dyspnea Medications/Allergies Home Medications Medication Instructions Recorded Confirmed Last Taken Type aspirin 81 mg tablet,delayed 81 mg PO DAILY 03/28/19 02/02/24 09/12/23 History release ([place] Low Dose Aspirin) hydrocodone 10 mg-acetaminophen 1 tab PO Q4H PRN pain 30 days #180 03/18/21 02/02/24 09/13/23 Rx 325 mg tablet tabs flash glucose scanning reader #1 ea 07/28/22 02/02/24 Unknown Rx (FreeStyle Jesse 2 [place]) amlodipine 10 mg tablet 10 mg PO DAILY 09/13/23 02/02/24 09/12/23 History ergocalciferol (vitamin D2) 1,250 1,250 mcg PO Q7D 09/13/23 02/02/24 Unknown History mcg (50,000 unit) capsule tizanidine 4 mg tablet 4 - 8 mg PO BEDTIME PRN muscle 09/13/23 02/02/24 Unknown History spasticity flash glucose sensor (FreeStyle #6 kits 10/01/23 02/02/24 Unknown Rx Jesse 2 Sensor kit) Diabetic shoes #1 ea 10/14/23 02/02/24 Unknown Rx pen needle, diabetic 32 gauge x #100 ea 10/14/23 02/02/24 Unknown Rx 5/32 (Comfort EZ Pen [place]) insulin lispro 100 unit/mL See Rx Instructions .Route 10/28/23 02/02/24 Unknown Rx subcutaneous pen .COMPLEX #30 mL fluticasone propionate 50 2 spray intranasal DAILY PRN 11/11/23 02/02/24 Unknown Rx mcg/actuation nasal allergy symptoms 30 days #16 grams spray,suspension blood sugar diagnostic (OneTouch See Rx Instructions .Route 11/17/23 02/02/24 Unknown Rx Verio test strips) .COMPLEX #100 strips atorvastatin 20 mg tablet See Rx Instructions .Route 02/10/24 Unknown Rx .COMPLEX #90 tabs insulin degludec 200 unit/mL (3 See Rx Instructions .Route 03/07/24 Unknown Rx mL) subcutaneous pen (Tresiba .COMPLEX #46 mL FlexTouch U-200 insulin) lisinopril 40 mg tablet See Rx Instructions .Route 03/07/24 Unknown Rx .COMPLEX #90 tabs metformin 1,000 mg tablet See Rx Instructions .Route 03/07/24 Unknown Rx .COMPLEX #60 tabs albuterol sulfate 90 mcg/actuation See Rx Instructions .Route 03/20/24 Unknown Rx aerosol inhaler .COMPLEX #8.5 grams Allergies Allergy/AdvReac Type Severity Reaction Status Date / Time morphine Allergy UPSET GI Verified 02/02/24 07:57 tramadol AdvReac rapid Verified 02/02/24 07:57 heart rate PFSH Acute 2 PFSH: Medical History Nasal congestion Ex-smoker YULI (obstructive sleep apnea) not on CPAP COPD (chronic obstructive pulmonary disease) Chronic back pain Chronic kidney disease COVID-19 determined by clinical diagnostic criteria 01/2020, summer 2021 Needle phobia 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 followed in [facility], had tonsillectomy in 2020 due to this BPH (benign prostatic hyperplasia) Environmental and seasonal allergies Mixed hyperlipidemia Vitamin D deficiency Diabetes mellitus, type II Osteoarthritis of lumbar spine Essential hypertension, benign Surgical History History of neck surgery for tonsillar/oropharyngeal cancer after initial tonsillectomy Hx of tonsillectomy (02/2021) Hx of appendectomy Family History Mother Diabetes Brother Heart problem has 2 brothers with pacemakers Grandfather Cancer Other Chewing tobacco use Social History Smoking and tobacco/nicotine status: never used tobacco/nicotine Quit status (tobacco/nicotine): has quit using Year quit tobacco: 2017 Former quit date comment: 1ppd x 30 years Second hand smoke exposure: Yes Alcohol intake: never Substance/Drug Use: never Lives independently: Yes Household members: family Housing: House Marital status: Single service: No Current occupational status: disabled Pets and animals: Yes Do you think of yourself as: Straight/Heterosexual Current gender identity: Male Physical Exam 2 Narrative: GENERAL: Patient is alert, awake and oriented x3. HEART: Regular S1 and S2. No murmur, rub or gallop. LUNGS: Diminished air entry bilaterally CENTRAL NERVOUS SYSTEM: Grossly nonfocal. EXTREMITIES: Lower extremities with out edema bilaterally. Data 03/30/24 19:00 03/30/24 19:00 A&P Assessment and plan (1) STEMI (ST elevation myocardial infarction): (2) Mixed hyperlipidemia: (3) Essential hypertension, benign: (4) YULI (obstructive sleep apnea): (5) Diabetes: Plan Patient has presented with ST elevation UT after inferior wall. Going directly to cardiac Security Clerk from outside hospital. Having ongoing chest pain. Has been given aspirin, Plavix and loaded with heparin. Will obtain echocardiogram. Will consult medicine team for management of medical issues and diabetes. Attestations 2 Medical Necessity Statement*: Care expected cross 2 midnights. Patient presented with ST elevation UT and going for coronary angiogram. Coding Level of Care Code Acute Code for [facility] Diagnoses STEMI (ST elevation myocardial infarction) I21.3 Mixed hyperlipidemia E78.2 Essential hypertension, benign I10 YULI (obstructive sleep apnea) G47.33 Diabetes E11.9
--- NOTE | 2024-03-30 19:24 | PM.PROC ---
Procedure Note: Date of procedure: 03/30/24 Pre-procedure diagnosis: STEMI Post-procedure diagnosis: other (Subtotally occluded proximal to mid RCA post PCI with 3 stents) Procedure: Left heart cath with PCI: Left main artery is patent. OM1 has severe disease. Proximal and mid to distal LAD have moderate stenosis. RCA is a large sized vessel. Proximal to mid segment has thrombotic subtotal occlusion. S/p successful revascularization with 3 stents Aspirin and plavix Ordering echocardiogram High intensity statin therapy Performing Provider: Edmund Fletcher Estimated blood loss (mL): 15 Complications: None Condition: stable Disposition: ICU Coding Level of Care Code Acute Code for [facility]
[2024-03-30 19:27] LABS: Basophils # 0.1 10^3/uL (0.0-0.1); Basophils % 0.5 %; Eosinophils # 0.2 10^3/uL (0.0-0.8); Eosinophils % 1.1 %; Hematocrit 36.8 % (37-53); Lymphocytes # 3.4 10^3/uL (0.8-4.8); Lymphocytes % 22.8 %; Mean Corpuscular HGB Conc 32.9 g/dL (30-55); Mean Corpuscular Volume 91.1 fl (82-101); Mean Platelet Volume 10.5 fL (7.4-10.4); Monocytes # 0.7 10^3/uL (0.2-0.9); Monocytes % 4.7 %; Neutrophils # 10.55 10^3/uL (1.8-7.7); Neutrophils % 70.4 %; Nucleated Red Blood Cells % 0 %; Platelet Count 213 10^3/cmm (157-399); Red Blood Count 4.04 10^6/uL (3.85-5.65); Red Cell Distribution Width 12.2 % (12.1-15.1)
--- NOTE | 2024-03-30 19:38 | P.CONIM_ITS ---
Providers/Reason For Consult 2 Consulting Physician/Specialty*: Gerardo Scanlon MD Reason for Consult*: Diabetes and other Medical Management Requesting Physician: Chava Fletcher MD Attending Physician: Edmund Fletcher M.D Primary Care Provider: Yong Garland MD History of Present Illness History of Present Illness David Mota is a 69 yo man w/ throat cancer s/p surgery in 02/2021, HTN, HLD, IDDM2, who was transferred from an [facility] to [facility] on 03/30/2024 for acute onset chest pain and was found to have an inferior STEMI. He is s/p PCI w/ SALAS x 3 to the RCA. 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 At the time that he is seen, he endorses a 1/10 chest pain, but states that it is not as bad as it was before. He denies palpitations, dizziness, light headedness, f/c, GI or sxs. He endorses chronic nocturia. He endorses chronic SOB, and tells me that he was once diagnosed w/ COPD. He states that he stopped smoking approximately 10 yrs ago. He tells me that he wears hearing aids in both ears. Review of Systems 2 Const: Denies: fever(s) or chills Eyes: Denies: change in vision ENMT: Denies: odynophagia, ear or mastoid pain, nasal discharge or nasal congestion Card: Reports: chest pain; Denies: palpitations or lightheadedness Resp: Reports: dyspnea; Denies: productive cough or wheezing GI: Denies: abdominal pain, nausea, vomiting, diarrhea or constipation : Denies: difficulty urinating, dysuria, urinary frequency or hematuria Musc: Denies: joint pain Skin/Breast: Denies: rash or new lesions Neuro: Reports: other (no syncope); Denies: headache(s) or dizziness Psych: Denies: anxiety, depression, suicidal ideation or homicidal ideation Endo: Denies: cold intolerance or heat intolerance Aaron/Lymph: Reports: easy bleeding; Denies: easy bruising Medications/Allergies Home Medications Medication Instructions Recorded Confirmed Last Taken Type aspirin 81 mg tablet,delayed 81 mg PO DAILY 03/28/19 02/02/24 09/12/23 History release ([place] Low Dose Aspirin) hydrocodone 10 mg-acetaminophen 1 tab PO Q4H PRN pain 30 days #180 03/18/21 02/02/24 09/13/23 Rx 325 mg tablet tabs flash glucose scanning reader #1 ea 07/28/22 02/02/24 Unknown Rx (Dynamic Organic LightStyle Jesse 2 [place]) amlodipine 10 mg tablet 10 mg PO DAILY 09/13/23 02/02/24 09/12/23 History ergocalciferol (vitamin D2) 1,250 1,250 mcg PO Q7D 09/13/23 02/02/24 Unknown History mcg (50,000 unit) capsule tizanidine 4 mg tablet 4 - 8 mg PO BEDTIME PRN muscle 09/13/23 02/02/24 Unknown History spasticity flash glucose sensor (FreeStyle #6 kits 10/01/23 02/02/24 Unknown Rx Jesse 2 Sensor kit) Diabetic shoes #1 ea 10/14/23 02/02/24 Unknown Rx pen needle, diabetic 32 gauge x #100 ea 10/14/23 02/02/24 Unknown Rx (Comfort EZ Pen [place]) insulin lispro 100 unit/mL See Rx Instructions .Route 10/28/23 02/02/24 Unknown Rx subcutaneous pen .COMPLEX #30 mL fluticasone propionate 50 2 spray intranasal DAILY PRN 11/11/23 02/02/24 Unknown Rx mcg/actuation nasal allergy symptoms 30 days #16 grams spray,suspension blood sugar diagnostic (OneTouch See Rx Instructions .Route 11/17/23 02/02/24 Unknown Rx Verio test strips) .COMPLEX #100 strips atorvastatin 20 mg tablet See Rx Instructions .Route 02/10/24 Unknown Rx .COMPLEX #90 tabs insulin degludec 200 unit/mL (3 See Rx Instructions .Route 03/07/24 Unknown Rx mL) subcutaneous pen (Tresiba .COMPLEX #46 mL FlexTouch U-200 insulin) lisinopril 40 mg tablet See Rx Instructions .Route 03/07/24 Unknown Rx .COMPLEX #90 tabs metformin 1,000 mg tablet See Rx Instructions .Route 03/07/24 Unknown Rx .COMPLEX #60 tabs albuterol sulfate 90 mcg/actuation See Rx Instructions .Route 03/20/24 Unknown Rx aerosol inhaler .COMPLEX #8.5 grams Allergies Allergy/AdvReac Type Severity Reaction Status Date / Time morphine Allergy UPSET GI Verified 02/02/24 07:57 tramadol AdvReac rapid Verified 02/02/24 07:57 heart rate PFSH Acute 2 PFSH: Medical History Nasal congestion Ex-smoker YULI (obstructive sleep apnea) not on CPAP COPD (chronic obstructive pulmonary disease) Chronic back pain Chronic kidney disease COVID-19 determined by clinical diagnostic criteria 01/2020, summer 2021 Needle phobia 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 Hx of tonsillectomy (02/2021) Hx of appendectomy Family History Mother Diabetes Brother Heart problem has 2 brothers with pacemakers Grandfather Cancer Other Chewing tobacco use Social History Smoking and tobacco/nicotine status: never used tobacco/nicotine Quit status (tobacco/nicotine): has quit using Year quit tobacco: 2016 Former quit date comment: 1ppd x 30 years Second hand smoke exposure: Yes Alcohol intake: never Substance/Drug Use: never Lives independently: Yes Household members: family Housing: House Marital status: Single service: No Current occupational status: disabled Pets and animals: Yes Do you think of yourself as: Straight/Heterosexual Current gender identity: Male Physical Exam 2 Const: GENERAL APPEARANCE: cooperative and comfortable O RIENTATION/CONSCIOUSNESS: Yes awake, Yes oriented to person, Yes oriented to place and Yes oriented to time HENMT: COMMON NORMALS: normocephalic, atraumatic, external ears normal and Normal external nose present HEAD & SCALP: normocephalic and atraumatic N OSE: Normal external nose present EXTERNAL EAR: Yes external ears normal M OUTH: Normal oral and palatal mucosa present THROAT: posterior oropharynx normal Eye: OTHER: PERRL, EOMI, normal conjunctiva b/l Neck/C-Spine: COMMON NORMALS: Thyroid normal GENERAL: Yes normal visual inspection and Yes trachea midline THYROID: Thyroid normal CAROTIDS: No bruit CERVICAL SPINE: Yes cervical ROM normal Lymph: OTHER: no cervical or supraclavicular LAD. Resp: OTHER: Decreased breath sounds in the left lower lung field Cardio: OTHER: RRR, no m/r/g or clicks. 2+ radial and DP pulses. No carotid bruits bilaterally GI: OTHER: BS+, NT, ND, no guarding, no rigidity, no rebound tenderness, no hepatosplenomegaly. Extremity: NARRATIVE EXTREMITY EXAM: minimally swollen right hand. GENERAL: No clubbing and No cyanosis Neuro: SENSORIUM/ORIENTATION: Yes oriented to person, Yes oriented to place and Yes oriented to time CRANIAL NERVES: Yes CN normal except as noted S PEECH: speech normal SENSORY EXAM: No sensory level loss detected MOTOR EXAM: 5/5 motor strength present throughout and Normal motor muscle tone present throughout Psych: COMMON NORMALS: Normal thought process present and speech normal A PPEARANCE: Yes grossly normal ATTITUDE: Yes calm and Yes engaged A CTIVITY/MOTOR BEHAVIOR: Yes appropriate eye contact SPEECH: Yes normal speech MOOD & AFFECT: Yes euthymic mood THOUGHT PROCESS: Normal thought process present THOUGHT CONTENT: Yes Normal thought content present A TTENTION/CONCENTRATION: Yes attention grossly intact MEMORY/COGNITION: Yes memory grossly intact Skin: COMMON NORMALS: no rashes or lesions noted GENERAL SKIN EXAM: no rashes or lesions noted Data 03/30/24 19:00 03/30/24 19:00 A&P Assessment and plan (1) STEMI (ST elevation myocardial infarction): (2) Mixed hyperlipidemia: (3) Essential hypertension, benign: (4) Diabetes mellitus, type II: Qualifiers: Diabetes mellitus business performance specialist insulin use: with business performance specialist use Diabetes mellitus complication status: with neurologic complications Diabetes mellitus complication detail: with polyneuropathy Qualified Code(s): E11.42 - Type 2 diabetes mellitus with diabetic polyneuropathy; Z79.4 - detention (current) use of insulin Plan David Mota is a 69 yo man w/ throat cancer s/p surgery in 02/2021, HTN, HLD, IDDM2 who was transferred from an OS to [facility] on 03/30/2024 for acute onset chest pain and was found to have an inferior STEMI. He is s/p PCI w/ SALAS x 3 to the RCA. 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 #Inferior STEMI s/p SALAS x 3 to the RCA #CAD - On NTG drip, Aspirin, Plavix, Atorvastatin, beta carl. Mgmt per Cardiology - F/u ECHO, CXR, A1c, lipid panel, UDS - I emphasized the importance of medication compliance w/ his Plavix #HTN #HLD - See Inferior STEMI section #IDDM2 - Ordered insulin glargine 15units x 1. Start 30units daily and medium dose SSI with meals and at bedtime. It is unclear whether the patient is vigilant about taking insulin w/ his meals. - F/u UA, A1c. Monitor BG. 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
[2024-03-30 19:55] LABS: Anion Gap 17.2 (5-19); Blood Urea Nitrogen 21 mg/dL (8-23); Calcium 8.5 mg/dL (8.5-10.5); Carbon Dioxide 18 mmol/L (22-29); Chloride 106 mmol/L (98-107); Creatinine Clr Calc Pharmacy 91.4122; Glomerular Filtration Rate 74.5 mL/min (90-130); Glucose 182 mg/dL (65-115); Osmolality Calculated 292 mOsm/kg (285-295); Potassium 4.2 mmol/L (3.5-5.1); Sodium 137 mmol/L (136-145)
[2024-03-30 20:03] LABS: Troponin(5th) Baseline 3049 ng/L (0-15)
--- NOTE | 2024-03-30 20:24 | ECG_ITS ---
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 Measurements Intervals [place] Rate: 86 P: 29 IN: 144 QRS: -39 QRSD: 98 T: -16 QT: 350 QTc: 420 Interpretive Statements SINUS RHYTHM WITH OCCASIONAL SUPRAVENTRICULAR PREMATURE COMPLEXES INFERIOR MYOCARDIAL INFARCTION , OF INDETERMINATE AGE [40+ ms Q WAVE AND/OR ST/T ABNORMALITY IN II/aVF] Compared to ECG 09/14/2023 10:32:13 Myocardial infarct finding now present Intraventricular conduction delay no longer present Electronically Signed On 03-31-2024 08:58:12 STATION USHER by Edmund Fletcher M.D. [email or web address]
[2024-03-30] MEDS: atorvastatin 40 mg Tablet 80 MG PO (20:46)
[2024-03-30] MEDS: nitroglycerin drip 50 MG/250 ML PREMIX IV (21:00)
--- NOTE | 2024-03-30 21:05 | USCV_ITS ---
David Mota Age: 69 Gender: M : 1955 Exam Date: 03/30/2024 22:11 Ordering Phys: Edmund Fletcher M.D ([email or web address]) Technologist: [email or web address] [place] [facility] [place]: STEMI BP: 155 / 85 HR: 83 Rhythm: Sinus Technical Quality: Adequate MEASUREMENTS (Male / Female) Normal Values 2D ECHO LV Diastolic Diameter PLAX 4.1 cm 4.2 - 5.9 / 3.9 - 5.3 cm IVS Diastolic Thickness 2.0 cm 0.6 - 1.0 / 0.6 - 0.9 cm IVS Systolic Thickness 2.1 cm LVPW Diastolic Thickness 1.4 cm 0.6 - 1.0 / 0.6 - 0.9 cm LVPW Systolic Thickness 1.5 cm LVOT Diameter 1.9 cm LV Ejection Fraction 2D Teich 43.6 % LV Ejection Fraction MOD 4C 37.6 % LV Ejection Fraction MOD 2C 69.2 % LV Ejection Fraction 2C AL 71.7 % LA Diameter 3.8 cm Aorta at Sinotubular Diameter 2.7 cm IVC Diameter 1.4 cm M-MODE LA Ao Ratio MM 1.2 AV Cusp Separation MM 2.2 cm DOPPLER AV Peak Velocity 116.0 cm/s LVOT Peak Velocity 99.0 cm/s AV Area Cont Eq vti 2.8 cm squared AV Area Cont Eq pk 2.5 cm squared MV Peak Velocity 131.0 cm/s MV Area PHT 4.2 cm squared Mitral E to A Ratio 0.9 TR Peak Velocity 265.0 cm/s TR Peak Gradient 28.1 mmHg TV Peak E Velocity 41.0 cm/s PV Peak Velocity 92.0 cm/s FINDINGS Left Ventricle Left ventricle is normal size. LV systolic function is mildly reduced with EF of 45 to 50%. Mild to moderate hypokinesis of inferior and inferolateral ordonez. Grade 1 diastolic dysfunction Right Ventricle Normal in size and function Right Atrium Normal in size Left Atrium Normal in size Mitral Valve Mild mitral annular calcification. Mild mitral regurgitation. Aortic Valve Structurally normal aortic valve. No significant stenosis or regurgitation. Tricuspid Valve Mild tricuspid regurgitation. Pulmonary artery systolic pressure is normal. Pulmonic Valve Not well-visualized. Pericardium Normal Aorta Normal in size IVC Appears to be normal CONCLUSIONS LV systolic function is mildly reduced with EF of 45 to 50%. Above-mentioned regional wall motion abnormalities. Grade 1 diastolic dysfunction. Mild mitral regurgitation Mild tricuspid regurgitation Edmund Fletcher MD (Electronically Signed) Final Date: 01 April 2024 11:54 S
--- NOTE | 2024-03-30 21:29 | ECG_ITS ---
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 Measurements Intervals [place] Rate: 82 P: 39 HI: 158 QRS: -38 QRSD: 104 T: -1 QT: 364 QTc: 427 Interpretive Statements SINUS RHYTHM INFERIOR MYOCARDIAL INFARCTION AGE INDETERMINATE Compared to ECG 03/30/2024 20:24:55 No significant changes Electronically Signed On 04-01-2024 23:28:45 ELECTRONIC DRAFTER by Edmund Fletcher M.D. [email or web address]
[2024-03-30] MEDS: metoprolol tartrate 25 mg Tablet PO (21:31)
[2024-03-30] MEDS: tirofiban 5 MG/100 ML PREMIX 19.1 MG IV (21:32)
[2024-03-30 21:57] LABS: Troponin 5 2HR 6253 ng/L (0-15); Troponin 5 2HR Delta 3204 ABS# (0-10)
--- NOTE | 2024-03-30 23:18 | PC.NURSE ---
TR band removal: 2mL of air was released at a time from TR band over the course of 2 hours. TR band was removed at 2315 and a dressing was placed, no bleeding or hematoma noted at site.
--- NOTE | 2024-03-30 23:31 | PC.NURSE ---
Aggrastat: Dr. Fletcher gave verbal orders to continue Aggrastat at 19.1mL for 6 hours.
--- NOTE | 2024-03-30 23:33 | PC.NURSE ---
CP: Patient continued to complain of chest pain rating it at a 6, nitro drip being titrated up. Dr. Fletcher was contacted and gave telephone orders to continue titrating nitro drip as BP allows, maxing at 100mcg/min.
[2024-03-31] VITALS (88 sets, daily range): BP systolic 60–174; BP diastolic 48–98; PULSE 60–90; RESP 9–28; TEMP 36.4–37.1; O2SAT 85–98; BMI 32.7
[2024-03-31 01:30] LABS: Troponin 5 6HR 6085 ng/L (0-15); Troponin 5 6HR Delta 3036 ng/L (0-12)
[2024-03-31 01:48] LABS: Glucose Point of Care 179 mg/dL (70-110)
--- NOTE | 2024-03-31 02:19 | ECG_ITS ---
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 Measurements Intervals [place] Rate: 65 P: 24 NH: 167 QRS: -35 QRSD: 133 T: 24 QT: 382 QTc: 398 Interpretive Statements SINUS RHYTHM INTRAVENTRICULAR CONDUCTION DELAY [130+ ms QRS DURATION] POSSIBLE ANTERIOR MYOCARDIAL INFARCTION , OF INDETERMINATE AGE [30 ms Q WAVE IN V3/V4, OR R < 0.2 mV IN V4] Compared to ECG 03/30/2024 21:29:47 Intraventricular conduction delay now present Myocardial infarct finding still present Electronically Signed On 04-01-2024 23:28:24 BATCH FREEZER by Edmund Fletcher M.D. [id number]
--- NOTE | 2024-03-31 02:19 | XRR_ITS ---
PROCEDURE INFORMATION: Exam: XR Chest Exam date and time: 03/31/2024 2:23 AM Age: 69 years old Clinical indication: Shortness of breath; Additional info: Decreased breath sounds in the L lower lung TECHNIQUE: Imaging protocol: Radiologic exam of the chest. Views: 1 view. COMPARISON: CT lung screening [id number] 02/16/2020 11:40 AM FINDINGS: Lungs: Unremarkable. No consolidation. Pleural spaces: Unremarkable. No pleural effusion. No pneumothorax. Heart/Mediastinum: Unremarkable. No cardiomegaly. Bones/joints: Unremarkable. XR/XR chest 1V portable [id number] IMPRESSION: No acute findings.
[2024-03-31] MEDS: insulin glargine 100 units/1 mL 15 UNIT SUBCUT (03:02)
[2024-03-31 03:03] LABS: Bilirubin Urine Negative (Negative); Blood Urine Negative (Negative); Glucose Urine UA 1+ (Normal); Ketones Urine Trace (Negative); Leukocyte Esterase Urine Negative (Negative); Nitrate Urine Negative (Negative); Protein Urine 1+ (Negative); Urine Appearance Clear (CLEAR); Urine Color Yellow (Yellow)
[2024-03-31 03:08] LABS: Add Urine Microscopic? YES; Bacteria Urine None Seen /hpf; Hyaline Casts Urine 0-4 /lpf; RBC Urine 0-2 /hpf (0-2); Squamous Epithelial Cell Urine 0-5 /hpf (0-5)
[2024-03-31 03:09] LABS: Specific Gravity, Urine 1.064 (1.005-1.030)
[2024-03-31 03:10] LABS: Amphetamines Screen Urine Negative (Negative); Barbiturates Screen Urine Negative (Negative); Benzodiazepines Screen Urine Negative (Negative); Cocaine Screen Urine Negative (Negative); Opiate Screen Urine Positive (Negative); PCP Screen Urine Negative (Negative); THC Screen Urine Negative (Negative)
[2024-03-31 04:54] LABS: Basophils # 0.1 10^3/uL (0.0-0.1); Basophils % 0.5 %; Eosinophils % 0.3 %; Hematocrit 37.7 % (37-53); Lymphocytes # 2.5 10^3/uL (0.8-4.8); Lymphocytes % 22.9 %; Mean Corpuscular HGB Conc 33.2 g/dL (30-55); Mean Corpuscular Hemoglobin 29.9 pg (27-33); Mean Corpuscular Volume 90.2 fl (82-101); Mean Platelet Volume 10.4 fL (7.4-10.4); Monocytes # 0.9 10^3/uL (0.2-0.9); Monocytes % 8.1 %; Neutrophils # 7.53 10^3/uL (1.8-7.7); Neutrophils % 67.9 %; Nucleated Red Blood Cells % 0 %; Platelet Count 237 10^3/cmm (157-399); Red Blood Count 4.18 10^6/uL (3.85-5.65); Red Cell Distribution Width 12.3 % (12.1-15.1); White Blood Count 11.08 10^3/uL (3.29-11.43)
[2024-03-31 05:06] LABS: INR 0.98 (0.8-1.2)
[2024-03-31 05:07] LABS: Partial Thromboplastin Time 27.6 SECONDS (23.9-36.7)
[2024-03-31 05:14] LABS: Estmated Average Glucose 217; Hemoglobin A1C 9.2 % (4.0-6.0)
[2024-03-31 05:21] LABS: Alanine Aminotransferase 49 U/L (0-41); Albumin Level 3.6 g/dL (3.5-5.2); Alkaline Phosphatase 72 U/L (40-130); Anion Gap 15.3 (5-19); Aspartate Amino Transferase 249 U/L (0-40); Blood Urea Nitrogen 20 mg/dL (8-23); Calcium 8.7 mg/dL (8.5-10.5); Carbon Dioxide 24 mmol/L (22-29); Chloride 101 mmol/L (98-107); Chol HDL Ratio 2.86 mg/dL (1.0-5.00); Cholesterol 103 mg/dL (0-200); Creatinine Clr Calc Pharmacy 70.4731; Globulin 2.8 g/dL (1.3-4.6); Glomerular Filtration Rate 55.1 mL/min (90-130); Glucose 178 mg/dL (65-115); HDL Cholesterol 36 mg/dL (60-100); LDL Cholesterol Calculated 47 mg/dL (50-129); LDL HDL Ratio 1.31 RATIO (0.00-3.22); Magnesium 1.5 mg/dL (1.7-2.3); Osmolality Calculated 289 mOsm/kg (285-295); Potassium 4.3 mmol/L (3.5-5.1); Sodium 136 mmol/L (136-145); Total Bilirubin 0.8 mg/dL (0.15-1.2); Total Protein 6.4 g/dL (6.6-8.7); Triglycerides 102 mg/dL (0-150)
[2024-03-31] MEDS: HYDROmorphone 1 mg/mL INJ 1 mL IVP (05:26)
[2024-03-31] MEDS: insulin glargine 100 units/1 mL 30 UNIT SUBCUT (08:41)
[2024-03-31] MEDS: metoprolol tartrate 25 mg Tablet PO ×2 (08:41→20:10)
[2024-03-31] MEDS: aspirin 81 mg EC Tablet PO (08:41)
[2024-03-31] MEDS: clopidogrel 75 mg Tablet PO (08:41)
[2024-03-31] MEDS: insulin lispro 100 unit/1 mL SUBCUT ×4 (08:44→21:10)
[2024-03-31 08:52] LABS: Glucose Point of Care 150 mg/dL (70-110)
[2024-03-31 09:39] LABS: Iron 30 ug/dL (59-158); Percent Saturation 12.3 % (20-50); Thyroid Stimulating Hormone 0.93 uIU/mL (0.27-4.20); Total Iron Binding Capacity 243 mcg/dl; Unsaturated Iron Binding 213 ug/dL (112-347); Vitamin B12 893 pg/mL (232-1245)
--- NOTE | 2024-03-31 11:44 | PC.SOCIAL ---
IMM Update pg 2 of IMM Updated and reviewed w/ patient. Copy provided and copy dated, initialed and placed in chart.
--- NOTE | 2024-03-31 12:20 | PM.PN ---
Subjective Subjective: Underwent PCI for inferior wall STEMI last night. Medicine consulted for diabetes. On examination today laying comfortably in bed. Denies any nausea, vomiting, headache. States chest pain is better but does complain of mild chest heaviness on and off radiating to neck. Currently on room air. On examination systolic blood pressure of 88 mmHg. On review it seems patient's blood pressures have been soft overnight. Vitals/I&O/Wt Last Vital Signs Temp 98.3 F 03/31/24 08:15 Pulse 74 03/31/24 09:45 Resp 16 03/31/24 09:45 BP 138/80 03/31/24 10:00 Pulse Ox 94 03/31/24 10:00 O2 Del Method Room Air 03/31/24 08:15 03/30/24 03/31/24 03/31/24 22:59 06:59 14:59 Intake Total 6.275 / 6.275 772.535 / 778.810 120 / 120 Output Total 1000 / 1000 Balance -993.725 / -993.725 772.535 / -221.190 120 / 120 Weight last 48 hrs Weight 109.5 kg Weight 109 kg Physical Exam Const: GENERAL APPEARANCE: cooperative and comfortable ORIENTATION/CONSCIOUSNESS: Yes awake, Yes oriented to person, Yes oriented to place and Yes oriented to time HENMT: COMMON NORMALS: normocephalic, atraumatic, external ears normal and Normal external nose present HEAD & SCALP: normocephalic and atraumatic NOSE: Normal external nose present EXTERNAL EAR: Yes external ears normal MOUTH: Normal oral and palatal mucosa present THROAT: posterior oropharynx normal Eye: OTHER: PERRL, EOMI, normal conjunctiva b/l Neck/C-Spine: COMMON NORMALS: Thyroid normal GENERAL: Yes normal visual inspection and Yes trachea midline THYROID: Thyroid normal CAROTIDS: No bruit CERVICAL SPINE: Yes cervical ROM normal Lymph: OTHER: no cervical or supraclavicular LAD. Resp: OTHER: Decreased breath sounds in the left lower lung field Cardio: OTHER: RRR, no m/r/g or clicks. 2+ radial and DP pulses. No carotid bruits bilaterally GI: OTHER: BS+, NT, ND, no guarding, no rigidity, no rebound tenderness, no hepatosplenomegaly. Extremity: NARRATIVE EXTREMITY EXAM: minimally swollen right hand. GENERAL: No clubbing and No cyanosis Neuro: SENSORIUM/ORIENTATION: Yes oriented to person, Yes oriented to place and Yes oriented to time CRANIAL NERVES: Yes CN normal except as noted SPEECH: speech normal SENSORY EXAM: No sensory level loss detected MOTOR EXAM: 5/5 motor strength present throughout and Normal motor muscle tone present throughout Psych: COMMON NORMALS: Normal thought process present and speech normal APPEARANCE: Yes grossly normal ATTITUDE: Yes calm and Yes engaged ACTIVITY/MOTOR BEHAVIOR: Yes appropriate eye contact SPEECH: Yes normal speech MOOD & AFFECT: Yes euthymic mood THOUGHT PROCESS: Normal thought process present THOUGHT CONTENT: Yes Normal thought content present ATTENTION/CONCENTRATION: Yes attention grossly intact MEMORY/COGNITION: Yes memory grossly intact Skin: COMMON NORMALS: no rashes or lesions noted GENERAL SKIN EXAM: no rashes or lesions noted Data 03/31/24 04:13 03/31/24 04:13 A&P Assessment and plan (1) STEMI (ST elevation myocardial infarction): (2) Hypotension: (3) Acute kidney injury superimposed on CKD: (4) Essential hypertension, benign: (5) Diabetes mellitus, type II: Qualifiers: Diabetes mellitus correction insulin use: with supervisor intermediates use Diabetes mellitus complication status: with neurologic complications Diabetes mellitus complication detail: with polyneuropathy Qualified Code(s): E11.42 - Type 2 diabetes mellitus with diabetic polyneuropathy; Z79.4 - extermination inspector (current) use of insulin (6) Chronic kidney disease, stage 3b: (7) COPD (chronic obstructive pulmonary disease): Qualifiers: COPD type: unspecified COPD Qualified Code(s): J44.9 - Chronic obstructive pulmonary disease, unspecified (8) YULI (obstructive sleep apnea): (9) Mixed hyperlipidemia: Plan David Mota is a 69 yo man w/ throat cancer s/p surgery in 02/2021, HTN, HLD, IDDM2 who was transferred from an OSH to [facility] on 03/30/2024 for acute onset chest pain and was found to have an inferior STEMI. He is s/p PCI w/ SALAS x 3 to the RCA. 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 #Inferior STEMI s/p SALAS x 3 to the RCA: Cardiology is primary. Continue with aspirin, Plavix, statin. Holding off on beta-carl for now given soft blood pressures. Hypotension: Most likely in setting of dehydration. Cannot rule out early cardiogenic shock. Troponin cycled going up to 6000 overnight. Hold off on beta-carl for now. Goal blood pressure less than 140/90 mmHg with mean over 65. Will restart accordingly. Normal saline 500 cc fluid bolus. Start on NS at 75 cc/h. PEBBLES on CKD: Baseline creatinine 1.1. Currently 1.3. Most likely in setting of dehydration. Patient did undergo cardiac angiogram yesterday. IV fluid as above. Medical reconciliation done for nephrotoxic drugs. Hold off on home dose of lisinopril and metformin for now. Type 2 diabetes mellitus: A1c of 9.2. Patient takes long-acting 96 units daily along with sliding scale. Continue with current Lantus 30 units daily along with sliding scale. Will uptitrate as per insulin requirement in next 24 hours. Compliance of outpatient medication questionable for now. Heparin 5000 Q12 hourly for DVT prophylaxis Carb consistent cardiac diet Protonix for PUD prophylaxis Care discussed in detail with RN at bedside, nurse by pressure from cardiology team. Will continue to follow. Thank you for involving us in care of Mr. Mota. Will continue to follow. Attestations Medical Necessity Statement*: Requires further hospitalization for management of post inferior wall ST elevation MS, post PCI developing hypotension with concerns for early cardiogenic shock, PEBBLES on CKD Diagnoses STEMI (ST elevation myocardial infarction) I21.3 Hypotension I95.9 Acute kidney injury superimposed on CKD N17.9; N18.9 Essential hypertension, benign I10 Type 2 diabetes mellitus with diabetic polyneuropathy, with long-term current use of insulin E11.42; Z79.4 Diabetes mellitus supervisor intermediates insulin use: with correction use Diabetes mellitus complication status: with neurologic complications Diabetes mellitus complication detail: with polyneuropathy Chronic kidney disease, stage 3b N18.32 Chronic obstructive pulmonary disease, unspecified COPD type J44.9 COPD type: unspecified COPD YULI (obstructive sleep apnea) G47.33 Mixed hyperlipidemia E78.2
[2024-03-31] MEDS: sodium chloride 0.9% 1,000 ML 75 ML IV ×2 (12:30→22:34)
[2024-03-31 12:59] LABS: Glucose Point of Care 183 mg/dL (70-110)
[2024-03-31] MEDS: sodium chloride 0.9% 500 ML 999 ML IV (13:03)
--- NOTE | 2024-03-31 15:54 | P.PN_ITS ---
<Statement entered by Edmund Fletcher M.D - 03/31/24 21:25> Patient was evaluated and cared for in conjunction with an advanced practice practitioner. I personally examined the patient and reviewed the chart and all pertinent data including imaging, telemetry, and laboratory results. I discussed the patient in detail with the advanced practice practitioner. Please see their note for complete progress note, results and agreed upon plan of care for the patient. Patient doing well. no chest pain. creatinine trended up.EF is borderline low GENERAL: Patient is alert and oriented HEART: Regular S1 and S2 LUNGS: ctab EXTREMITIES: Lower extremities with 1+ edema Subjective 2 Subjective: He has done well overnight, had some intermittent mild chest discomfort. Blood pressure has been soft. No complications with right radial cath site. Creatinine this morning 1.3. Will monitor with morning labs. Vitals/I&O/Wt Last Vital Signs Temp 98.3 F 03/31/24 08:15 Pulse 74 03/31/24 14:39 Resp 19 H 03/31/24 14:15 BP 103/57 03/31/24 14:15 Pulse Ox 93 03/31/24 14:15 O2 Del Method Room Air 03/31/24 08:15 03/31/24 03/31/24 03/31/24 06:59 14:59 22:59 Intake Total 772.535 / 778.810 860 / 860 Balance 772.535 / -221.190 860 / 860 Weight last 48 hrs Weight 241 lb 6.499 oz Weight 240 lb 4.862 oz Physical Exam 2 Const: COMMON NORMALS: no acute distress and patient oriented x3 GENERAL APPEARANCE: cooperative and comfortable ORIENTATION/CONSCIOUSNESS: Yes awake, Yes oriented to person, Yes oriented to place and Yes oriented to time Chest: COMMONS NORMALS: normal inspection of the chest and normal palpation of entire chest wall CHEST: Yes Symmetrical chest wall rise Resp: COMMON NORMALS: normal respiratory effort, No retractions, No use of accessory muscles and clear to auscultation bilaterally EFFORT & INSPECTION: Yes symmetric chest movement AUSCULTATION: clear to auscultation bilaterally Cardio: COMMON NORMALS: regular rate, regular rhythm, S1 normal heart sound present, S2 normal heart sound present, No gallops present (Cardio), No clicks present (Cardio), No murmurs present (Cardio) and No rub (Cardio) RATE: r egular rate RHYTHM: regular rhythm HEART SOUNDS: S1 normal heart sound present and S2 normal heart sound present PERIPHERAL PULSES: radial pulses present Extremity: COMMON NORMALS: no pedal edema Neuro: COMMON NORMALS: patient oriented x3 and moves all extremities S ENSORIUM/ORIENTATION: Yes oriented to person, Yes oriented to place and Yes oriented to time Data 03/31/24 04:13 03/31/24 04:13 A&P Assessment and plan (1) STEMI (ST elevation myocardial infarction): Continue aspirin, Plavix, atorvastatin, metoprolol tartrate 25 mg twice a day as long as he is not hypotensive. Currently receiving IV fluid. Right radial access site looks good. Echocardiogram pending read. If he does well overnight we will plan to discharge home tomorrow on aspirin, Plavix, metoprolol tartrate with plans for stress test as an outpatient due to stenosis in the first obtuse marginal -need to determine if it is causing any ischemic burden. Qualifiers: Involved coronary artery: right coronary artery Qualified Code(s): I 21.11 - ST elevation (STEMI) myocardial infarction involving right coronary artery (2) Diastolic CHF: (3) Essential hypertension, benign: (4) Mixed hyperlipidemia: Attestations 2 Medical Necessity Statement*: STEMI Coding Level of Care Code Acute Code for [facility] Diagnoses ST elevation myocardial infarction involving right coronary artery I21.11 Involved coronary artery: right coronary artery Diastolic CHF I50.30 Essential hypertension, benign I10 Mixed hyperlipidemia E78.2
[2024-03-31 16:58] LABS: Glucose Point of Care 185 mg/dL (70-110)
[2024-03-31] MEDS: atorvastatin 40 mg Tablet 80 MG PO (20:10)
[2024-03-31 20:17] LABS: Glucose Point of Care 269 mg/dL (70-110)
[2024-04-01] VITALS (51 sets, daily range): BP systolic 82–143; BP diastolic 43–92; PULSE 61–91; RESP 14–27; TEMP 37–37.7; O2SAT 77–93
--- NOTE | 2024-04-01 01:49 | ECG_ITS ---
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 Measurements Intervals [place] Rate: 82 P: 41 [place]: 170 QRS: -36 QRSD: 106 T: -8 QT: 349 QTc: 409 Interpretive Statements SINUS RHYTHM PATTERN CONSISTENT WITH PULMONARY DISEASE Compared to ECG 03/31/2024 02:19:20 Intraventricular conduction delay no longer present Myocardial infarct finding no longer present Electronically Signed On 04-01-2024 23:24:55 ACCOUNTS PAYABLE ASSOCIATE by Edmund Fletcher M.D. [id number]
[2024-04-01] MEDS: nitroglycerin 0.4 mg sublingual Tablet SUBLINGUAL (02:28)
--- NOTE | 2024-04-01 02:40 | PC.NURSE ---
Addendum entered by Josy Chowdary RN 04/01/24 02:51: Physician to order 1mg Dilaudid for pain. Original Note: Chest Pain: Patient complaining of mild, but tolerable chest pain throughout this shift. Patient is now reporting 10/10 chest pain that will not subside. EKG obtained, first dose of nitroglycerin administered and physician notified. Physician ordered repeat troponin with no other new orders at this time.
[2024-04-01] MEDS: HYDROmorphone 1 mg/mL INJ 1 mL IVP (03:10)
[2024-04-01 03:20] LABS: Basophils % 0.3 %; Eosinophils % 0.1 %; Hematocrit 38.3 % (37-53); Lymphocytes # 2.5 10^3/uL (0.8-4.8); Mean Corpuscular HGB Conc 32.1 g/dL (30-55); Mean Corpuscular Hemoglobin 30.1 pg (27-33); Mean Corpuscular Volume 93.9 fl (82-101); Mean Platelet Volume 10.4 fL (7.4-10.4); Monocytes # 1.2 10^3/uL (0.2-0.9); Monocytes % 8.7 %; Neutrophils % 72.6 %; Nucleated Red Blood Cells % 0 %; Platelet Count 186 10^3/cmm (157-399); Red Blood Count 4.08 10^6/uL (3.85-5.65); Red Cell Distribution Width 12.1 % (12.1-15.1); White Blood Count 13.91 10^3/uL (3.29-11.43)
[2024-04-01 03:28] LABS: Slide Review Slide Review Perform
[2024-04-01 03:43] LABS: Alanine Aminotransferase 38 U/L (0-41); Albumin Level 3.4 g/dL (3.5-5.2); Alkaline Phosphatase 66 U/L (40-130); Anion Gap 15.4 (5-19); Aspartate Amino Transferase 125 U/L (0-40); Blood Urea Nitrogen 22 mg/dL (8-23); Calcium 8.9 mg/dL (8.5-10.5); Carbon Dioxide 21 mmol/L (22-29); Chloride 107 mmol/L (98-107); Creatinine Clr Calc Pharmacy 76.3458; Globulin 3.5 g/dL (1.3-4.6); Glomerular Filtration Rate 60.4 mL/min (90-130); Glucose 123 mg/dL (65-115); Magnesium 1.6 mg/dL (1.7-2.3); Osmolality Calculated 293 mOsm/kg (285-295); Phosphorus 2.2 mg/dL (2.5-4.5); Potassium 4.4 mmol/L (3.5-5.1); Sodium 139 mmol/L (136-145); Total Bilirubin 0.9 mg/dL (0.15-1.2); Total Protein 6.9 g/dL (6.6-8.7)
[2024-04-01 03:54] LABS: Troponin T (5th) Once 3750 ng/L (0-15)
[2024-04-01 03:57] LABS: Folate Level 10.9 ng/mL (4.5-32.2)
--- NOTE | 2024-04-01 04:25 | PC.NURSE ---
Critical troponin called to physician by this nurse at 0400. Physician gave this nurse telephone orders to start nitroglycerin drip at 10mcg/hr for persistent chest pain. Report and patient care passed on to ICU nurse, Jon, for gtt management.
[2024-04-01] MEDS: nitroglycerin drip 50 MG/250 ML PREMIX IV (04:48)
--- NOTE | 2024-04-01 04:53 | PM.MISC ---
Miscellaneous Note Note: Patient complaining of 10/10 chest pain despite SL Nitro x1. 1mg Dilaudid given w/ improvement in pain to 5-6/10 that persisted. EKG does not look particlarly worse than previous ones. Trop T is elevated to 3750. Nitro gtt restarted and full dose lovenox was given. Continue to Trend trop T
[2024-04-01] MEDS: enoxaparin 120 mg/0.8 mL Syringe 110 MG SUBCUT (05:01)
--- NOTE | 2024-04-01 06:52 | ECG_ITS ---
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 Measurements Intervals [place] Rate: 82 P: 38 DC: 160 QRS: -36 QRSD: 100 T: -19 QT: 350 QTc: 411 Interpretive Statements SINUS RHYTHM PATTERN CONSISTENT WITH PULMONARY DISEASE INFERIOR MYOCARDIAL INFARCTION , OF INDETERMINATE AGE [40+ ms Q WAVE AND/OR ST/T ABNORMALITY IN II/aVF] Compared to ECG 04/01/2024 01:49:42 Myocardial infarct finding now present Electronically Signed On 04-01-2024 23:23:54 RESAW OPERATOR by Edmund Fletcher M.D. [id number]
[2024-04-01 07:09] LABS: Troponin 5 2HR Delta 0 ABS# (0-10)
[2024-04-01 07:11] LABS: Troponin 5 2HR 3750 ng/L (0-15)
--- NOTE | 2024-04-01 07:45 | XRR_ITS ---
PROCEDURE INFORMATION: Exam: XR Chest Exam date and time: 04/01/2024 8:09 AM Age: 69 years old Clinical indication: Other: Possible chf TECHNIQUE: Imaging protocol: Radiologic exam of the chest. Views: 1 view. COMPARISON: CR (CHEST, ) 03/31/2024 2:23 AM FINDINGS: Lungs: Hypoinflation with bronchovascular crowding. Nonspecific patchy right hilar and lower lobe opacity. Pleural spaces: Unremarkable. No pleural effusion. No pneumothorax. Heart/Mediastinum: Cardiomegaly. Vasculature: Tortuous aorta. Bones/joints: Unremarkable. XR/XR chest 1V portable [id number] IMPRESSION: Nonspecific patchy right hilar and lower lobe opacity. Query infectious process.
[2024-04-01 08:20] LABS: NT Pro B Type Natriuretic Pept 5120 pg/mL (0-125); Procalcitonin 0.09 ng/mL (0-0.5)
[2024-04-01 09:16] LABS: Troponin 5 6HR 3875 ng/L (0-15); Troponin 5 6HR Delta 826 ng/L (0-12)
--- NOTE | 2024-04-01 10:19 | PM.PN ---
Subjective Subjective: Patient has with chest pain symptoms that are pleuritic. Secondary to post CA pericarditis. Vitals/I&O/Wt Last Vital Signs Temp 99.4 F 04/01/24 04:00 Pulse 86 04/01/24 06:00 Resp 18 04/01/24 03:10 BP 116/66 04/01/24 06:00 Pulse Ox 89 L 04/01/24 06:00 O2 Del Method Room Air 03/31/24 19:40 03/31/24 04/01/24 04/01/24 22:59 06:59 14:59 Intake Total 995 / 1855 483.6 / 2338.6 0 / 0 Output Total 300 / 300 400 / 700 Balance 695 / 1555 83.6 / 1638.6 0 / 0 Weight last 48 hrs Weight 250 lb 3.594 oz Weight 241 lb 6.499 oz Weight 240 lb 4.862 oz Physical Exam Narrative: GENERAL: Patient is alert, awake and oriented x3. HEART: Regular S1 and S2. No murmur, rub or gallop. LUNGS: Diminished air entry bilaterally CENTRAL NERVOUS SYSTEM: Grossly nonfocal. EXTREMITIES: Lower extremities with out edema bilaterally. Data 04/01/24 03:08 04/01/24 03:08 A&P Assessment and plan (1) STEMI (ST elevation myocardial infarction): Qualifiers: Involved coronary artery: right coronary artery Qualified Code(s): I21.11 - ST elevation (STEMI) myocardial infarction involving right coronary artery (2) Diastolic CHF: (3) Essential hypertension, benign: (4) Mixed hyperlipidemia: (5) Post-CA pericarditis: Plan Patient has developed post CA pericarditis. We will uptitrate aspirin to 650 mg 3 times daily. Will start colchicine 0.6 mg twice daily. Continue Plavix. Will uptitrate metoprolol 50mg BID. Stop nitroglycerine Medicine team on board for management of medical issues Thank you for involving us with care of this patient. We will continue to follow. Please call with questions. Attestations Medical Necessity Statement*: Care expected to cross 2 midnights. Coding Level of Care Code Acute Code for [facility] Diagnoses ST elevation myocardial infarction involving right coronary artery I21.11 Involved coronary artery: right coronary artery Diastolic CHF I50.30 Essential hypertension, benign I10 Mixed hyperlipidemia E78.2 Post-CA pericarditis I24.1
[2024-04-01 10:47] LABS: Glucose Point of Care 178 mg/dL (70-110)
--- NOTE | 2024-04-01 10:52 | ECG_ITS ---
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 Measurements Intervals [place] Rate: 90 P: 52 IL: 158 QRS: -39 QRSD: 97 T: -28 QT: 333 QTc: 409 Interpretive Statements SINUS RHYTHM WITH OCCASIONAL VENTRICULAR PREMATURE COMPLEXES PATTERN CONSISTENT WITH PULMONARY DISEASE Compared to ECG 04/01/2024 08:54:26 Ventricular premature complex(es) now present Myocardial infarct finding no longer present Electronically Signed On 04-01-2024 23:22:46 EXECUTIVE CREATIVE DIRECTOR by Edmund Fletcher M.D. [id number]
[2024-04-01] MEDS: insulin lispro 100 unit/1 mL SUBCUT ×3 (10:58→20:43)
[2024-04-01] MEDS: aspirin 325 mg EC Tablet 650 MG PO ×3 (10:58→20:42)
[2024-04-01] MEDS: clopidogrel 75 mg Tablet PO (10:58)
[2024-04-01] MEDS: insulin glargine 100 units/1 mL 30 UNIT SUBCUT (10:58)
[2024-04-01] MEDS: colchicine 0.6 mg Tablet PO ×2 (10:59→18:34)
[2024-04-01 12:31] LABS: Glucose Point of Care 159 mg/dL (70-110)
[2024-04-01] MEDS: magnesium sulfate premix 1 GM/100 ML PIGGYBACK IV (12:36)
--- NOTE | 2024-04-01 16:01 | P.PN_ITS ---
Subjective 2 Subjective: Overnight patient had chest pain for which he was started on full dose Lovenox, nitro drip. Today morning on examination patient is laying comfortably in bed. Denies any nausea, vomiting, headache. States chest pain was more on taking a deep breath and improving on sitting up straight. Vitals/I&O/Wt Last Vital Signs Temp 99.4 F 04/01/24 04:00 Pulse 87 04/01/24 14:00 Resp 17 04/01/24 14:00 BP 101/43 04/01/24 14:30 Pulse Ox 92 04/01/24 14:30 O2 Del Method Room Air 03/31/24 19:40 04/01/24 04/01/24 04/01/24 06:59 14:59 22:59 Intake Total 483.6 / 2338.6 464.15 / 464.15 Output Total 400 / 700 Balance 83.6 / 1638.6 464.15 / 464.15 Weight last 48 hrs Weight 113.5 kg Weight 109.5 kg Weight 109 kg Physical Exam 2 Const: GENERAL APPEARANCE: cooperative and comfortable O RIENTATION/CONSCIOUSNESS: Yes awake, Yes oriented to person, Yes oriented to place and Yes oriented to time HENMT: COMMON NORMALS: normocephalic, atraumatic, external ears normal and Normal external nose present HEAD & SCALP: normocephalic and atraumatic N OSE: Normal external nose present EXTERNAL EAR: Yes external ears normal M OUTH: Normal oral and palatal mucosa present THROAT: posterior oropharynx normal Eye: OTHER: PERRL, EOMI, normal conjunctiva b/l Neck/C-Spine: COMMON NORMALS: Thyroid normal GENERAL: Yes normal visual inspection and Yes trachea midline THYROID: Thyroid normal CAROTIDS: No bruit CERVICAL SPINE: Yes cervical ROM normal Lymph: OTHER: no cervical or supraclavicular LAD. Resp: OTHER: Decreased breath sounds in the left lower lung field Cardio: OTHER: RRR, no m/r/g or clicks. 2+ radial and DP pulses. No carotid bruits bilaterally GI: OTHER: BS+, NT, ND, no guarding, no rigidity, no rebound tenderness, no hepatosplenomegaly. Extremity: NARRATIVE EXTREMITY EXAM: minimally swollen right hand. GENERAL: No clubbing and No cyanosis Neuro: SENSORIUM/ORIENTATION: Yes oriented to person, Yes oriented to place and Yes oriented to time CRANIAL NERVES: Yes CN normal except as noted S PEECH: speech normal SENSORY EXAM: No sensory level loss detected MOTOR EXAM: 5/5 motor strength present throughout and Normal motor muscle tone present throughout Psych: COMMON NORMALS: Normal thought process present and speech normal A PPEARANCE: Yes grossly normal ATTITUDE: Yes calm and Yes engaged A CTIVITY/MOTOR BEHAVIOR: Yes appropriate eye contact SPEECH: Yes normal speech MOOD & AFFECT: Yes euthymic mood THOUGHT PROCESS: Normal thought process present THOUGHT CONTENT: Yes Normal thought content present A TTENTION/CONCENTRATION: Yes attention grossly intact MEMORY/COGNITION: Yes memory grossly intact Skin: COMMON NORMALS: no rashes or lesions noted GENERAL SKIN EXAM: no rashes or lesions noted Data 04/01/24 03:08 04/01/24 03:08 A&P Assessment and plan (1) STEMI (ST elevation myocardial infarction): Qualifiers: Involved coronary artery: right coronary artery Qualified Code(s): I 21.11 - ST elevation (STEMI) myocardial infarction involving right coronary artery (2) Hypotension: (3) Acute kidney injury superimposed on CKD: (4) Essential hypertension, benign: (5) Diabetes mellitus, type II: Qualifiers: Diabetes mellitus terminal gauger insulin use: with terminal gauger use Diabetes mellitus complication status: with neurologic complications Diabetes mellitus complication detail: with polyneuropathy Qualified Code(s): E11.42 - Type 2 diabetes mellitus with diabetic polyneuropathy; Z79.4 - terminal operations supervisor (current) use of insulin (6) Chronic kidney disease, stage 3b: (7) COPD (chronic obstructive pulmonary disease): Qualifiers: COPD type: unspecified COPD Qualified Code(s): J44.9 - Chronic obstructive pulmonary disease, unspecified (8) YULI (obstructive sleep apnea): (9) Mixed hyperlipidemia: Plan David Mota is a 69 yo man w/ throat cancer s/p surgery in 02/2021, HTN, HLD, IDDM2 who was transferred from an OS to [facility] on 03/30/2024 for acute onset chest pain and was found to have an inferior STEMI. He is s/p PCI w/ SALAS x 3 to the RCA. The Stroboscope Operator consulted the Hospitalist service for diabetes and medical management. #Inferior STEMI s/p SALAS x 3 to the RCA: Cardiology is primary. Continue with aspirin, Plavix, statin. Management as per cardiology team. Continue with metoprolol 25 mg 3 times daily. Hypotension: Resolved after IV hydration. Goal blood pressure less than 140/90 mmHg. Continue with metoprolol 25 mg twice daily. Hold off on IV fluids. Chest pain: High likelihood of in setting of pericarditis. Appreciate troponin cycled repeat. Hold off on full dose Lovenox for now. Nitro drip as per cardiology discretion. Check proBNP, chest x-ray. Hold off on fluids. Patient oral intake is improved. Aspirin changed to 650 mg 3 times daily. Colchicine 0.6 twice daily. PEBBLES on CKD: Baseline creatinine 1.1. Creatinine down to 1.2. Patient's oral intake is improving. Medical reconciliation done for nephrotoxic drugs. Continue to hold off on lisinopril and metformin for now. Type 2 diabetes mellitus: A1c of 9.2. Patient takes long-acting 96 units daily along with sliding scale. Continue with current Lantus 30 units daily along with sliding scale. Will uptitrate as per insulin requirement in next 24 hours. Compliance of outpatient medication questionable for now. Blood sugar stable controlled for now. Heparin 5000 Q12 hourly for DVT prophylaxis Carb consistent cardiac diet Protonix for PUD prophylaxis Patient is stable to be transferred out of ICU to CSU. Will confirm with primary team. Care discussed in detail with RN at bedside, nurse by pressure from cardiology team. Will continue to follow. Thank you for involving us in care of Mr. Mota. Will continue to follow. Attestations 2 Medical Necessity Statement*: As per primary team. Diagnoses ST elevation myocardial infarction involving right coronary artery I21.11 Involved coronary artery: right coronary artery Hypotension I95.9 Acute kidney injury superimposed on CKD N17.9; N18.9 Essential hypertension, benign I10 Type 2 diabetes mellitus with diabetic polyneuropathy, with long-term current use of insulin E11.42; Z79.4 Diabetes mellitus terminal gauger insulin use: with terminal gauger use Diabetes mellitus complication status: with neurologic complications Diabetes mellitus complication detail: with polyneuropathy Chronic kidney disease, stage 3b N18.32 Chronic obstructive pulmonary disease, unspecified COPD type J44.9 COPD type: unspecified COPD YULI (obstructive sleep apnea) G47.33 Mixed hyperlipidemia E78.2
[2024-04-01 18:40] LABS: Glucose Point of Care 116 mg/dL (70-110)
[2024-04-01 20:11] LABS: Glucose Point of Care 236 mg/dL (70-110)
[2024-04-01] MEDS: atorvastatin 40 mg Tablet 80 MG PO (20:42)
[2024-04-01 21:59] LABS: Erythrocyte Sedimentation Rate 27 mm/hr (0-10)
[2024-04-01 22:06] LABS: C Reactive Protein 94.6 mg/L (0.0-4.9)
[2024-04-02] VITALS (52 sets, daily range): BP systolic 86–142; BP diastolic 47–81; PULSE 56–79; RESP 15–34; TEMP 36.4–37.3; O2SAT 78–97
--- NOTE | 2024-04-02 01:05 | PC.NURSE ---
Hold metoprolol Contacted Dr Scanlon regarding patient's evening dose of metoprolol 50 mg. Patient continuously having soft blood pressures. Received instructions to hold metoprolol.
[2024-04-02] MEDS: metoprolol tartrate 25 mg Tablet PO (01:41)
[2024-04-02 05:37] LABS: Basophils # 0.1 10^3/uL (0.0-0.1); Basophils % 0.4 %; Eosinophils % 0.2 %; Hematocrit 33.4 % (37-53); Lymphocytes # 2.7 10^3/uL (0.8-4.8); Lymphocytes % 23.4 %; Mean Corpuscular HGB Conc 32.6 g/dL (30-55); Mean Corpuscular Hemoglobin 29.7 pg (27-33); Monocytes # 0.8 10^3/uL (0.2-0.9); Monocytes % 7.1 %; Neutrophils % 68.6 %; Nucleated Red Blood Cells % 0 %; Platelet Count 167 10^3/cmm (157-399); Red Blood Count 3.67 10^6/uL (3.85-5.65); Red Cell Distribution Width 12.2 % (12.1-15.1); White Blood Count 11.51 10^3/uL (3.29-11.43)
[2024-04-02 05:52] LABS: Alanine Aminotransferase 22 U/L (0-41); Alkaline Phosphatase 60 U/L (40-130); Anion Gap 14.4 (5-19); Aspartate Amino Transferase 66 U/L (0-40); Blood Urea Nitrogen 28 mg/dL (8-23); Calcium 8.5 mg/dL (8.5-10.5); Carbon Dioxide 22 mmol/L (22-29); Chloride 105 mmol/L (98-107); Creatinine Clr Calc Pharmacy 60.9415; Glomerular Filtration Rate 46.7 mL/min (90-130); Glucose 108 mg/dL (65-115); Osmolality Calculated 290 mOsm/kg (285-295); Phosphorus 2.4 mg/dL (2.5-4.5); Potassium 4.4 mmol/L (3.5-5.1); Sodium 137 mmol/L (136-145); Total Bilirubin 0.8 mg/dL (0.15-1.2)
[2024-04-02 08:05] LABS: Glucose Point of Care 99 mg/dL (70-110)
[2024-04-02] MEDS: clopidogrel 75 mg Tablet PO (08:27)
[2024-04-02] MEDS: aspirin 325 mg EC Tablet 650 MG PO ×3 (08:27→20:27)
[2024-04-02] MEDS: insulin glargine 100 units/1 mL 30 UNIT SUBCUT (08:27)
[2024-04-02] MEDS: colchicine 0.6 mg Tablet PO ×2 (08:27→17:41)
[2024-04-02] MEDS: metoprolol tartrate 25 mg Tablet 50 MG PO (08:27)
--- NOTE | 2024-04-02 08:29 | PM.PN ---
Subjective Subjective: Patient feeling much better today. No chest pain. Was placed on colchicine and aspirin and high-dose pericarditis treatment. Vitals/I&O/Wt Last Vital Signs Temp 99.1 F 04/02/24 05:39 Pulse 79 04/02/24 06:00 Resp 32 H 04/02/24 06:00 BP 107/64 04/02/24 06:00 Pulse Ox 89 L 04/02/24 06:00 O2 Del Method Room Air 03/31/24 19:40 04/01/24 04/02/24 04/02/24 22:59 06:59 14:59 Intake Total 480 / 944.15 Output Total 410 / 410 425 / 835 Balance 70 / 534.15 -425 / 109.15 Weight last 48 hrs Weight 240 lb 4.862 oz Weight 250 lb 3.594 oz Physical Exam Narrative: GENERAL: Patient is alert, awake and oriented x3. HEART: Regular S1 and S2. No murmur, rub or gallop. LUNGS: Diminished air entry bilaterally CENTRAL NERVOUS SYSTEM: Grossly nonfocal. EXTREMITIES: Lower extremities with out edema bilaterally. Data 04/02/24 04:45 04/02/24 04:45 A&P Assessment and plan (1) STEMI (ST elevation myocardial infarction): Qualifiers: Involved coronary artery: right coronary artery Qualified Code(s): I21.11 - ST elevation (STEMI) myocardial infarction involving right coronary artery (2) Diastolic CHF: (3) Essential hypertension, benign: (4) Mixed hyperlipidemia: (5) Post-MN pericarditis: (6) PEBBLES (acute kidney injury): Plan Continue aspirin 360 mg 3 times daily. Continue colchicine. We will continue with Plavix. Decreasing dose of beta-carl Patient has developed PEBBLES. Likely ABDI. Will monitor and administer fluids. Medicine team on board for management of medical issues Thank you for involving us with care of this patient. We will continue to follow. Please call with questions. Attestations Medical Necessity Statement*: Care expected to cross 2 midnights. Patient had presented with STEMI and developed post MN pericarditis. Likely discharge by tomorrow. Coding Level of Care Code Acute Code for [facility] Diagnoses ST elevation myocardial infarction involving right coronary artery I21.11 Involved coronary artery: right coronary artery Diastolic CHF I50.30 Essential hypertension, benign I10 Mixed hyperlipidemia E78.2 Post-MN pericarditis I24.1 PEBBLES (acute kidney injury) N17.9
[2024-04-02] MEDS: HYDROcodone-acetaminophen 5-325 mg Tablet 1 TAB PO (09:01)
[2024-04-02] MEDS: amoxicillin-clav 875-125 mg Tablet 1 TAB PO ×2 (09:02→17:41)
[2024-04-02] MEDS: sodium chloride 0.9% 1,000 ML 50 ML IV (09:02)
[2024-04-02 12:20] LABS: Glucose Point of Care 166 mg/dL (70-110)
[2024-04-02] MEDS: insulin lispro 100 unit/1 mL SUBCUT ×3 (12:34→20:36)
--- NOTE | 2024-04-02 15:38 | P.PN_ITS ---
Subjective 2 Subjective: No acute vents overnight. Today morning seen laying comfortably in bed. Denies any nausea, vomiting, headache. Has remained hemodynamically stable and afebrile. Currently on room air. Blood pressures were slightly low overnight. Vitals/I&O/Wt Last Vital Signs Temp 97.5 F L 04/02/24 15:02 Pulse 67 04/02/24 14:01 Resp 18 04/02/24 14:01 BP 142/81 04/02/24 14:01 Pulse Ox 92 04/02/24 14:01 O2 Del Method Room Air 03/31/24 19:40 04/02/24 04/02/24 04/02/24 06:59 14:59 22:59 Intake Total 358 / 358 Output Total 425 / 835 50 / 50 Balance -425 / 109.15 308 / 308 Weight last 48 hrs Weight 109 kg Weight 113.5 kg Physical Exam 2 Const: GENERAL APPEARANCE: cooperative and comfortable O RIENTATION/CONSCIOUSNESS: Yes awake, Yes oriented to person, Yes oriented to place and Yes oriented to time HENMT: COMMON NORMALS: normocephalic, atraumatic, external ears normal and Normal external nose present HEAD & SCALP: normocephalic and atraumatic N OSE: Normal external nose present EXTERNAL EAR: Yes external ears normal M OUTH: Normal oral and palatal mucosa present THROAT: posterior oropharynx normal Eye: OTHER: PERRL, EOMI, normal conjunctiva b/l Neck/C-Spine: COMMON NORMALS: Thyroid normal GENERAL: Yes normal visual inspection and Yes trachea midline THYROID: Thyroid normal CAROTIDS: No bruit CERVICAL SPINE: Yes cervical ROM normal Lymph: OTHER: no cervical or supraclavicular LAD. Resp: OTHER: Decreased breath sounds in the left lower lung field Cardio: OTHER: RRR, no m/r/g or clicks. 2+ radial and DP pulses. No carotid bruits bilaterally GI: OTHER: BS+, NT, ND, no guarding, no rigidity, no rebound tenderness, no hepatosplenomegaly. Extremity: NARRATIVE EXTREMITY EXAM: minimally swollen right hand. GENERAL: No clubbing and No cyanosis Neuro: SENSORIUM/ORIENTATION: Yes oriented to person, Yes oriented to place and Yes oriented to time CRANIAL NERVES: Yes CN normal except as noted S PEECH: speech normal SENSORY EXAM: No sensory level loss detected MOTOR EXAM: 5/5 motor strength present throughout and Normal motor muscle tone present throughout Psych: COMMON NORMALS: Normal thought process present and speech normal A PPEARANCE: Yes grossly normal ATTITUDE: Yes calm and Yes engaged A CTIVITY/MOTOR BEHAVIOR: Yes appropriate eye contact SPEECH: Yes normal speech MOOD & AFFECT: Yes euthymic mood THOUGHT PROCESS: Normal thought process present THOUGHT CONTENT: Yes Normal thought content present A TTENTION/CONCENTRATION: Yes attention grossly intact MEMORY/COGNITION: Yes memory grossly intact Skin: COMMON NORMALS: no rashes or lesions noted GENERAL SKIN EXAM: no rashes or lesions noted Data 04/02/24 04:45 04/02/24 04:45 A&P Assessment and plan (1) STEMI (ST elevation myocardial infarction): Qualifiers: Involved coronary artery: right coronary artery Qualified Code(s): I 21.11 - ST elevation (STEMI) myocardial infarction involving right coronary artery (2) Hypotension: (3) Acute kidney injury superimposed on CKD: (4) Essential hypertension, benign: (5) Diabetes mellitus, type II: Qualifiers: Diabetes mellitus longterm insulin use: with termite control service representative use Diabetes mellitus complication status: with neurologic complications Diabetes mellitus complication detail: with polyneuropathy Qualified Code(s): E11.42 - Type 2 diabetes mellitus with diabetic polyneuropathy; Z79.4 - halfway (current) use of insulin (6) Chronic kidney disease, stage 3b: (7) COPD (chronic obstructive pulmonary disease): Qualifiers: COPD type: unspecified COPD Qualified Code(s): J44.9 - Chronic obstructive pulmonary disease, unspecified (8) YULI (obstructive sleep apnea): (9) Mixed hyperlipidemia: Plan David Mota is a 69 yo man w/ throat cancer s/p surgery in 02/2021, HTN, HLD, IDDM2 who was transferred from an OS to [facility] on 03/30/2024 for acute onset chest pain and was found to have an inferior STEMI. He is s/p PCI w/ SALAS x 3 to the RCA. The [employer] Operator consulted the Hospitalist service for diabetes and medical management. #Inferior STEMI s/p SALAS x 3 to the RCA: Cardiology is primary. Continue with aspirin, Plavix, statin. Management as per cardiology team. Continue with metoprolol 25 mg 3 times daily. Hypotension: Resolved after IV hydration. Goal blood pressure less than 140/90 mmHg. Continue with metoprolol 25 mg twice daily. Hold off on IV fluids. Chest pain: High likelihood of in setting of pericarditis. Appreciate troponin cycled repeat. Hold off on full dose Lovenox for now. Nitro drip as per cardiology discretion. Check proBNP, chest x-ray. Hold off on fluids. Patient oral intake is improved. Aspirin changed to 650 mg 3 times daily. Colchicine 0.6 twice daily. PEBBLES on CKD: Baseline creatinine 1.1. Creatinine down to 1.2. Patient's oral intake is improving. Medical reconciliation done for nephrotoxic drugs. Continue to hold off on lisinopril and metformin for now. Type 2 diabetes mellitus: A1c of 9.2. Patient takes long-acting 96 units daily along with sliding scale. Continue with current Lantus 30 units daily along with sliding scale. Will uptitrate as per insulin requirement in next 24 hours. Compliance of outpatient medication questionable for now. Blood sugar stable controlled for now. Heparin 5000 Q12 hourly for DVT prophylaxis Carb consistent cardiac diet Protonix for PUD prophylaxis Plan for the day: Overnight slight hypotension. Patient did not tolerate higher dose of metoprolol well overnight. Will switch to metoprolol 12.5 mg twice daily. Start on normal saline at 50 cc/h. Watch for fluid overload. Discussed in detail with the patient regarding increase oral intake if possible. He is agreeable. No further chest pain after increased aspirin. Continue with aspirin, colchicine, Plavix, statin. Goal blood pressure less than 140/90 mmHg. Did develop mild PEBBLES. Continue to monitor BMP daily. Creatinine up to 1.5 today. Appropriate urine output. Blood sugar well-controlled. Continue with glargine 30 units, lispro before meals and at bedtime. Patient does have leukocytosis. Slight improvement since yesterday. Down to 11.5. Procalcitonin negative. Check sputum culture. Given sickness for now we will start on Augmentin twice daily. Check MRSA swab. Out of bed to chair. Patient can be transferred out of ICU to CSU. Care discussed in detail with RN at bedside, nurse by pressure from cardiology team. Will continue to follow. Thank you for involving us in care of Mr. Mota. Will continue to follow. Attestations 2 Medical Necessity Statement*: As per primary team. Getting care for post PCI in setting of inferior STEMI, PEBBLES, chest pain in setting of post CA pericarditis Diagnoses ST elevation myocardial infarction involving right coronary artery I21.11 Involved coronary artery: right coronary artery Hypotension I95.9 Acute kidney injury superimposed on CKD N17.9; N18.9 Essential hypertension, benign I10 Type 2 diabetes mellitus with diabetic polyneuropathy, with long-term current use of insulin E11.42; Z79.4 Diabetes mellitus termite control service representative insulin use: with longterm use Diabetes mellitus complication status: with neurologic complications Diabetes mellitus complication detail: with polyneuropathy Chronic kidney disease, stage 3b N18.32 Chronic obstructive pulmonary disease, unspecified COPD type J44.9 COPD type: unspecified COPD YULI (obstructive sleep apnea) G47.33 Mixed hyperlipidemia E78.2
[2024-04-02 17:24] LABS: Glucose Point of Care 179 mg/dL (70-110)
[2024-04-02 17:51] LABS: MRSA PCR OZH (swab) NOT DETECTED (Negative)
[2024-04-02] MEDS: atorvastatin 40 mg Tablet 80 MG PO (20:27)
[2024-04-02] MEDS: metoprolol tartrate 25 mg Tablet 12.5 MG PO (20:27)
[2024-04-02 20:34] LABS: Glucose Point of Care 257 mg/dL (70-110)
[2024-04-03] VITALS (7 sets, daily range): BP systolic 79–168; BP diastolic 50–98; PULSE 56–83; RESP 14–24; TEMP 36.3–36.7; O2SAT 90–96
--- NOTE | 2024-04-03 01:14 | PC.NURSE ---
Transfer Report given to ROSANNA Joyce. Transferred patient to [facility]SU 112-1. All belongings taken with patient. CSU staff at bedside on arrival. Patient voiced no complaints at this time.
[2024-04-03] MEDS: sodium chloride 0.9% 1,000 ML 50 ML IV (04:20)
[2024-04-03 06:14] LABS: Basophils % 0.4 %; Eosinophils # 0.1 10^3/uL (0.0-0.8); Eosinophils % 1.3 %; Hematocrit 34.4 % (37-53); Lymphocytes % 20.9 %; Mean Corpuscular HGB Conc 32.8 g/dL (30-55); Mean Corpuscular Hemoglobin 30.3 pg (27-33); Mean Corpuscular Volume 92.2 fl (82-101); Mean Platelet Volume 10.4 fL (7.4-10.4); Monocytes # 0.7 10^3/uL (0.2-0.9); Monocytes % 7.5 %; Neutrophils # 6.66 10^3/uL (1.8-7.7); Neutrophils % 69.6 %; Nucleated Red Blood Cells % 0 %; Platelet Count 184 10^3/cmm (157-399); Red Blood Count 3.73 10^6/uL (3.85-5.65); Red Cell Distribution Width 12.2 % (12.1-15.1); White Blood Count 9.57 10^3/uL (3.29-11.43)
[2024-04-03 06:27] LABS: Glucose Point of Care 152 mg/dL (70-110)
[2024-04-03 06:33] LABS: Alanine Aminotransferase 25 U/L (0-41); Albumin Level 2.9 g/dL (3.5-5.2); Alkaline Phosphatase 67 U/L (40-130); Anion Gap 17.2 (5-19); Aspartate Amino Transferase 39 U/L (0-40); Blood Urea Nitrogen 34 mg/dL (8-23); Carbon Dioxide 20 mmol/L (22-29); Chloride 105 mmol/L (98-107); Creatinine Clr Calc Pharmacy 61.6155; Globulin 3.1 g/dL (1.3-4.6); Glomerular Filtration Rate 46.7 mL/min (90-130); Glucose 132 mg/dL (65-115); Osmolality Calculated 295 mOsm/kg (285-295); Potassium 4.2 mmol/L (3.5-5.1); Sodium 138 mmol/L (136-145); Total Bilirubin 0.4 mg/dL (0.15-1.2)
[2024-04-03] MEDS: insulin lispro 100 unit/1 mL SUBCUT (08:09)
[2024-04-03] MEDS: colchicine 0.6 mg Tablet PO (08:10)
[2024-04-03] MEDS: insulin glargine 100 units/1 mL 30 UNIT SUBCUT (08:10)
[2024-04-03] MEDS: HYDROcodone-acetaminophen 5-325 mg Tablet 1 TAB PO (08:11)
[2024-04-03] MEDS: aspirin 325 mg EC Tablet 650 MG PO (08:11)
[2024-04-03] MEDS: amoxicillin-clav 875-125 mg Tablet 1 TAB PO (08:11)
[2024-04-03] MEDS: clopidogrel 75 mg Tablet PO (08:11)
[2024-04-03] MEDS: metoprolol tartrate 25 mg Tablet 12.5 MG PO (08:11)
--- NOTE | 2024-04-03 09:07 | PM.PN ---
Subjective Subjective: He has done well overnight, denies chest pain or shortness of breath this morning. Creatinine on this morning's labs drawn at 6 AM 1.5. Blood pressure elevated this morning after waking, was hypotensive briefly overnight. Vitals/I&O/Wt Last Vital Signs Temp 97.7 F 04/03/24 07:49 Pulse 76 04/03/24 07:49 Resp 20 H 04/03/24 07:49 BP 168/86 04/03/24 07:49 Pulse Ox 95 04/03/24 07:49 O2 Del Method Nasal Cannula 04/03/24 07:49 04/02/24 04/03/24 04/03/24 22:59 06:59 14:59 Intake Total 500 / 1823 965 / 1823 240 / 240 Output Total 550 / 600 Balance -50 / 1223 965 / 1223 240 / 240 Weight last 48 hrs Weight 245 lb 12.8 oz Weight 240 lb 4.862 oz Physical Exam Const: COMMON NORMALS: no acute distress and patient oriented x3 GENERAL APPEARANCE: cooperative and comfortable ORIENTATION/CONSCIOUSNESS: Yes awake, Yes oriented to person, Yes oriented to place and Yes oriented to time Chest: COMMONS NORMALS: normal inspection of the chest and normal palpation of entire chest wall CHEST: Yes Symmetrical chest wall rise Resp: COMMON NORMALS: normal respiratory effort, No retractions, No use of accessory muscles and clear to auscultation bilaterally EFFORT & INSPECTION: Yes symmetric chest movement AUSCULTATION: clear to auscultation bilaterally Cardio: COMMON NORMALS: regular rate, regular rhythm, S1 normal heart sound present, S2 normal heart sound present, No gallops present (Cardio), No clicks present (Cardio), No murmurs present (Cardio) and No rub (Cardio) RATE: regular rate RHYTHM: regular rhythm HEART SOUNDS: S1 normal heart sound present and S2 normal heart sound present PERIPHERAL PULSES: radial pulses present Extremity: COMMON NORMALS: no pedal edema Neuro: COMMON NORMALS: patient oriented x3 and moves all extremities SENSORIUM/ORIENTATION: Yes oriented to person, Yes oriented to place and Yes oriented to time Data 04/03/24 06:06 04/03/24 06:06 A&P Assessment and plan (1) STEMI (ST elevation myocardial infarction): Qualifiers: Involved coronary artery: right coronary artery Qualified Code(s): I21.11 - ST elevation (STEMI) myocardial infarction involving right coronary artery (2) Diastolic CHF: (3) Essential hypertension, benign: (4) Mixed hyperlipidemia: (5) Post-SD pericarditis: (6) Acute kidney injury superimposed on CKD: Plan Appears to be euvolemic, no chest pain or shortness of breath noted. Due to elevated creatinine, will hold lisinopril, will plan to attempt adding Entresto to his medication regimen as an outpatient. Continue aspirin, Plavix, statin, metoprolol 50 mg twice daily. Will continue to observe creatinine. Attestations Medical Necessity Statement*: STEMI, pericarditis, systolic CHF, PEBBLES on CKD Coding Level of Care Code Acute Code for [facility] Diagnoses ST elevation myocardial infarction involving right coronary artery I21.11 Involved coronary artery: right coronary artery Diastolic CHF I50.30 Essential hypertension, benign I10 Mixed hyperlipidemia E78.2 Post-SD pericarditis I24.1 Acute kidney injury superimposed on CKD N17.9; N18.9
--- NOTE | 2024-04-03 10:19 | P.PN_ITS ---
Subjective 2 Subjective: No acute events overnight. Patient has remained hemodynamically stable and afebrile. No further chest pain or chest heaviness. Blood pressure slightly elevated today. Overnight patient's blood pressure slightly soft. Vitals/I&O/Wt Last Vital Signs Temp 97.7 F 04/03/24 07:49 Pulse 76 04/03/24 07:49 Resp 20 H 04/03/24 07:49 BP 168/86 04/03/24 07:49 Pulse Ox 95 04/03/24 07:49 O2 Del Method Nasal Cannula 04/03/24 07:49 04/02/24 04/03/24 04/03/24 22:59 06:59 14:59 Intake Total 500 / 858 965 / 1823 240 / 240 Output Total 550 / 600 Balance -50 / 258 965 / 1223 240 / 240 Weight last 48 hrs Weight 111.493 kg Weight 109 kg Physical Exam 2 Const: GENERAL APPEARANCE: cooperative and comfortable O RIENTATION/CONSCIOUSNESS: Yes awake, Yes oriented to person, Yes oriented to place and Yes oriented to time HENMT: COMMON NORMALS: normocephalic, atraumatic, external ears normal and Normal external nose present HEAD & SCALP: normocephalic and atraumatic N OSE: Normal external nose present EXTERNAL EAR: Yes external ears normal M OUTH: Normal oral and palatal mucosa present THROAT: posterior oropharynx normal Eye: OTHER: PERRL, EOMI, normal conjunctiva b/l Neck/C-Spine: COMMON NORMALS: Thyroid normal GENERAL: Yes normal visual inspection and Yes trachea midline THYROID: Thyroid normal CAROTIDS: No bruit CERVICAL SPINE: Yes cervical ROM normal Lymph: OTHER: no cervical or supraclavicular LAD. Resp: OTHER: Decreased breath sounds in the left lower lung field Cardio: OTHER: RRR, no m/r/g or clicks. 2+ radial and DP pulses. No carotid bruits bilaterally GI: OTHER: BS+, NT, ND, no guarding, no rigidity, no rebound tenderness, no hepatosplenomegaly. Extremity: NARRATIVE EXTREMITY EXAM: minimally swollen right hand. GENERAL: No clubbing and No cyanosis Neuro: SENSORIUM/ORIENTATION: Yes oriented to person, Yes oriented to place and Yes oriented to time CRANIAL NERVES: Yes CN normal except as noted S PEECH: speech normal SENSORY EXAM: No sensory level loss detected MOTOR EXAM: 5/5 motor strength present throughout and Normal motor muscle tone present throughout Psych: COMMON NORMALS: Normal thought process present and speech normal A PPEARANCE: Yes grossly normal ATTITUDE: Yes calm and Yes engaged A CTIVITY/MOTOR BEHAVIOR: Yes appropriate eye contact SPEECH: Yes normal speech MOOD & AFFECT: Yes euthymic mood THOUGHT PROCESS: Normal thought process present THOUGHT CONTENT: Yes Normal thought content present A TTENTION/CONCENTRATION: Yes attention grossly intact MEMORY/COGNITION: Yes memory grossly intact Skin: COMMON NORMALS: no rashes or lesions noted GENERAL SKIN EXAM: no rashes or lesions noted Data 04/03/24 06:06 04/03/24 06:06 A&P Assessment and plan (1) STEMI (ST elevation myocardial infarction): Qualifiers: Involved coronary artery: right coronary artery Qualified Code(s): I 21.11 - ST elevation (STEMI) myocardial infarction involving right coronary artery (2) Hypotension: (3) Acute kidney injury superimposed on CKD: (4) Essential hypertension, benign: (5) Diabetes mellitus, type II: Qualifiers: Diabetes mellitus terminal gauger insulin use: with terminal gauger use Diabetes mellitus complication status: with neurologic complications Diabetes mellitus complication detail: with polyneuropathy Qualified Code(s): E11.42 - Type 2 diabetes mellitus with diabetic polyneuropathy; Z79.4 - assisted (current) use of insulin (6) Chronic kidney disease, stage 3b: (7) COPD (chronic obstructive pulmonary disease): Qualifiers: COPD type: unspecified COPD Qualified Code(s): J44.9 - Chronic obstructive pulmonary disease, unspecified (8) YULI (obstructive sleep apnea): (9) Mixed hyperlipidemia: Plan David Mota is a 69 yo man w/ throat cancer s/p surgery in 02/2021, HTN, HLD, IDDM2 who was transferred from an OS to [facility] on 03/30/2024 for acute onset chest pain and was found to have an inferior STEMI. He is s/p PCI w/ SALAS x 3 to the RCA. The [employer] Registered Nurse consulted the Hospitalist service for diabetes and medical management. #Inferior STEMI s/p SLAAS x 3 to the RCA: Cardiology is primary. Continue with aspirin, Plavix, statin. Management as per cardiology team. Continue with metoprolol 25 mg 3 times daily. Hypotension: Resolved after IV hydration. Goal blood pressure less than 140/90 mmHg. Continue with metoprolol 25 mg twice daily. Hold off on IV fluids. Chest pain: High likelihood of in setting of pericarditis. Appreciate troponin cycled repeat. Hold off on full dose Lovenox for now. Nitro drip as per cardiology discretion. Check proBNP, chest x-ray. Hold off on fluids. Patient oral intake is improved. Aspirin changed to 650 mg 3 times daily. Colchicine 0.6 twice daily. PEBBLES on CKD: Baseline creatinine 1.1. Creatinine down to 1.2. Patient's oral intake is improving. Medical reconciliation done for nephrotoxic drugs. Continue to hold off on lisinopril and metformin for now. Type 2 diabetes mellitus: A1c of 9.2. Patient takes long-acting 96 units daily along with sliding scale. Continue with current Lantus 30 units daily along with sliding scale. Will uptitrate as per insulin requirement in next 24 hours. Compliance of outpatient medication questionable for now. Blood sugar stable controlled for now. Heparin 5000 Q12 hourly for DVT prophylaxis Carb consistent cardiac diet Protonix for PUD prophylaxis Plan for the day: Patient is stable to be discharged from medical standpoint. He should be discharged on insulin dose of 30 units long-acting daily, short acting as before. He should maintain a blood sugar diary and follow-up with his primary care provider within next 2 weeks for further adjustment of medications. He should also check his blood pressure daily at home and maintain a blood pressure diary. He should be off lisinopril for now given mild PEBBLES. He should have repeat BMP with his PCP within next 10 days. Patient will have a follow-up with his PCP and plan cardiology team. Cardiology medications as per the primary team. He will be discharged on Augmentin for next 5 days. Care discussed in detail with primary team over the phone. Med rec completed. Thank you for involving us in care of Mr. Mota. Will continue to follow. Attestations 2 Medical Necessity Statement*: As per primary team. Diagnoses ST elevation myocardial infarction involving right coronary artery I21.11 Involved coronary artery: right coronary artery Hypotension I95.9 Acute kidney injury superimposed on CKD N17.9; N18.9 Essential hypertension, benign I10 Type 2 diabetes mellitus with diabetic polyneuropathy, with long-term current use of insulin E11.42; Z79.4 Diabetes mellitus terminal gauger insulin use: with terminal gauger use Diabetes mellitus complication status: with neurologic complications Diabetes mellitus complication detail: with polyneuropathy Chronic kidney disease, stage 3b N18.32 Chronic obstructive pulmonary disease, unspecified COPD type J44.9 COPD type: unspecified COPD YULI (obstructive sleep apnea) G47.33 Mixed hyperlipidemia E78.2
--- NOTE | 2024-04-03 10:31 | P.DS_ITS ---
Discharge Providers Date of Admission: 03/30/24 19:10 Date of Discharge: April 03, 2024 Attending Provider at Admission: Edmund Fletcher M.D Attending Provider at Discharge: Edmund Fletcher M.D Consults: Dr Venegas Primary Care Provider: Yong Garland MD Diagnoses at Discharge Discharge Diagnosis (1) STEMI (ST elevation myocardial infarction): Status: Acute Qualifiers: Involved coronary artery: right coronary artery Qualified Code(s): I21.11 - ST elevation (STEMI) myocardial infarction involving right coronary artery (2) Diastolic CHF: Status: Chronic (3) Essential hypertension, benign: Status: Chronic (4) Mixed hyperlipidemia: Status: Chronic (5) Post-MS pericarditis: Status: Acute (6) Acute kidney injury superimposed on CKD: Status: Acute Reason for Visit Reason for Visit: stemi alert Brief History: David Mota is a 69 year old male with prior history of hypertension and diabetes who was transferred from outside hospital with chest pain. According to patient chest pain started yesterday morning. However it was on and off. Got more intense today. Went to the ER and had EKG that showed inferior wall ST elevation MS. He was transferred from there emergently. Brought straight to our Nuclear Medicine Medical Director for procedure Hospital Course Hospital Course Coronary angiogram on 03/30/2024 revealed patent left main, severe OM1 disease, proximal, mid and distal LAD contained moderate stenosis, large sized RCA contained proximal to mid thrombotic subtotal occlusion, treated with SALAS x 3. Echocardiogram 03/30/2024 revealed LVEF 45 to 50%. On 04/01/2024 he developed post MS pericarditis treated with aspirin and colchicine. Noted to have PEBBLES on CKD, creatinine 1.5 today. He is feeling well, chest pain and shortness of breath have resolved. He appears euvolemic. Will plan to discharge home today. Continue aspirin 650 mg 3 times daily x 2 weeks then reduce to 325 mg daily. Will continue colchicine 0.6 mg twice daily x 3 months. Discontinue lisinopril, we will plan to start Entresto as an outpatient depending on renal function. He had some hypotension on higher doses of metoprolol, will discharge on 12.5 mg twice a day and uptitrate as needed. Hold metformin until follow-up labs are completed. Recheck creatinine in 3 days. Continue Plavix 75 mg daily, atorvastatin changed to high intensity, 80 mg daily. Continue amlodipine 10 mg daily, hold if blood pressure less than 110 systolic. Monitor blood pressure at home and bring log to follow-up appointment. Follow-up in cardiology clinic in 7 to 10 days with cardiology DIRECTOR E LEARNING. Physical Exam Const: COMMON NORMALS: no acute distress and patient oriented x3 GENERAL APPEARANCE: cooperative and comfortable ORIENTATION/CONSCIOUSNESS: Yes awake, Yes oriented to person, Yes oriented to place and Yes oriented to time Chest: COMMONS NORMALS: normal inspection of the chest and normal palpation of entire chest wall CHEST: Yes Symmetrical chest wall rise Resp: COMMON NORMALS: normal respiratory effort, No retractions, No use of accessory muscles and clear to auscultation bilaterally EFFORT & INSPECTION: Yes symmetric chest movement AUSCULTATION: clear to auscultation bilaterally Cardio: COMMON NORMALS: regular rate, regular rhythm, S1 normal heart sound present, S2 normal heart sound present, No gallops present (Cardio), No clicks present (Cardio), No murmurs present (Cardio) and No rub (Cardio) RATE: regular rate RHYTHM: regular rhythm HEART SOUNDS: S1 normal heart sound present and S2 normal heart sound present PERIPHERAL PULSES: radial pulses present Extremity: COMMON NORMALS: no pedal edema Neuro: COMMON NORMALS: patient oriented x3 and moves all extremities SENSORIUM/ORIENTATION: Yes oriented to person, Yes oriented to place and Yes oriented to time Discharge Data Studies Completed and Pending Completed Studies During Hospitalization Category Date Time Status CXRP [XR chest 1V portable [id number]] Routine Exams 03/31/24 02:19 Completed XR chest 1V portable [id number] Routine Exams 04/01/24 07:45 Completed CV. 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 Query infectious process. Laboratory Results WBC 9.57 10^3/uL (3.29-11.43) 04/03/24 06:06 RBC 3.73 10^6/uL (3.85-5.65) L 04/03/24 06:06 Hgb 11.30 g/dL (11.27-16.99) 04/03/24 06:06 Hct 34.4 % (37-53) L 04/03/24 06:06 MCV 92.2 fl (82-101) 04/03/24 06:06 MCH 30.3 pg (27-33) 04/03/24 06:06 MCHC 32.8 g/dL (30-55) 04/03/24 06:06 RDW 12.2 % (12.1-15.1) 04/03/24 06:06 Plt Count 184 10^3/cmm (157-399) 04/03/24 06:06 MPV 10.4 fL (7.4-10.4) 04/03/24 06:06 Neut % (Auto) 69.6 % 04/03/24 06:06 Lymph % (Auto) 20.9 % 04/03/24 06:06 [place] % (Auto) 7.5 % 04/03/24 06:06 Eos % (Auto) 1.3 % 04/03/24 06:06 Baso % (Auto) 0.4 % 04/03/24 06:06 Neut # (Auto) 6.66 10^3/uL (1.8-7.7) 04/03/24 06:06 Lymph # (Auto) 2.0 10^3/uL (0.8-4.8) 04/03/24 06:06 [place] # (Auto) 0.7 10^3/uL (0.2-0.9) 04/03/24 06:06 Eos # (Auto) 0.1 10^3/uL (0.0-0.8) 04/03/24 06:06 Baso # (Auto) 0.0 10^3/uL (0.0-0.1) 04/03/24 06:06 Nucleated RBC % (auto) 0 % 04/03/24 06:06 Nucleated RBCs # 0.0 /100WBC 04/03/24 06:06 ESR 27 mm/hr (0-10) H 04/01/24 03:08 PT 13.70 SECONDS (12.1-14.9) 03/31/24 04:13 INR 0.98 (0.8-1.2) 03/31/24 04:13 APTT 27.6 SECONDS (23.9-36.7) 03/31/24 04:13 Sodium 138 mmol/L (136-145) 04/03/24 06:06 Potassium 4.2 mmol/L (3.5-5.1) 04/03/24 06:06 Chloride 105 mmol/L (98-107) 04/03/24 06:06 Carbon Dioxide 20 mmol/L (22-29) L 04/03/24 06:06 Anion Gap 17.2 (5-19) 04/03/24 06:06 BUN 34 mg/dL (8-23) H 04/03/24 06:06 Creatinine 1.5 mg/dL (0.7-1.2) H 04/03/24 06:06 GFR Calculation 46.7 mL/min (90-130) L 04/03/24 06:06 Glucose 132 mg/dL (65-115) H 04/03/24 06:06 POC Glucose 152 mg/dL (70-110) H 04/03/24 06:20 Estimat Average Glucose 217 03/31/24 04:13 Hemoglobin A1c 9.2 % (4.0-6.0) H 03/31/24 04:13 Calculated Osmolality 295 mOsm/kg (285-295) 04/03/24 06:06 Calcium 8.0 mg/dL (8.5-10.5) L 04/03/24 06:06 Phosphorus 2.4 mg/dL (2.5-4.5) L 04/02/24 04:45 Magnesium 2.0 mg/dL (1.7-2.3) 04/03/24 06:06 Iron 30 ug/dL (59-158) L 03/31/24 04:13 TIBC 243 mcg/dl 03/31/24 04:13 % Saturation 12.3 % (20-50) L 03/31/24 04:13 Unsat Iron Binding 213 ug/dL (112-347) 03/31/24 04:13 Total Bilirubin 0.4 mg/dL (0.15-1.2) 04/03/24 06:06 AST 39 U/L (0-40) 04/03/24 06:06 ALT 25 U/L (0-41) 04/03/24 06:06 Alkaline Phosphatase 67 U/L (40-130) 04/03/24 06:06 Troponin T 5th Gen ng/L 3750 ng/L (0-15) H* 04/01/24 03:08 Troponin T Baseline 3049 ng/L (0-15) H* 03/30/24 19:00 Troponin T 120 Minute 3750 ng/L (0-15) H 04/01/24 06:09 Delta Troponin T 0 ABS# (0-10) 04/01/24 06:09 Troponin T Hi Sens 6Hr 3875 ng/L (0-15) H 04/01/24 08:45 Troponin T Hi Sens 6Hr Delta 826 ng/L (0-12) H* 04/01/24 08:45 C-Reactive Protein 94.6 mg/L (0.0-4.9) H 04/01/24 03:08 NT-Pro-B Natriuret Pep 5120 pg/mL (0-125) H 04/01/24 06:09 Total Protein 6.0 g/dL (6.6-8.7) L 04/03/24 06:06 Albumin 2.9 g/dL (3.5-5.2) L 04/03/24 06:06 Globulin 3.1 g/dL (1.3-4.6) 04/03/24 06:06 Triglycerides 102 mg/dL (0-150) 03/31/24 04:13 Cholesterol 103 mg/dL (0-200) 03/31/24 04:13 LDL Cholesterol, Calc 47 mg/dL (50-129) L 03/31/24 04:13 HDL Cholesterol 36 mg/dL (60-100) L 03/31/24 04:13 LDL/HDL Ratio 1.31 RATIO (0.00-3.22) 03/31/24 04:13 Cholesterol/HDL Ratio 2.86 mg/dL (1.0-5.00) 03/31/24 04:13 Vitamin B12 893 pg/mL (232-1245) 03/31/24 04:13 Folate 10.9 ng/mL (4.5-32.2) 04/01/24 03:08 Procalcitonin 0.09 ng/mL (0-0.5) 04/01/24 06:09 TSH 0.93 uIU/mL (0.27-4.20) 03/31/24 04:13 Urine Color Yellow (Yellow) 03/31/24 02:45 Urine Appearance Clear (CLEAR) 03/31/24 02:45 Urine pH 5.0 (5-7) 03/31/24 02:45 Ur Specific [place] 1.064 (1.005-1.030) H 03/31/24 02:45 Urine Protein 1+ (Negative) A 03/31/24 02:45 Urine Glucose (UA) 1+ (Normal) H 03/31/24 02:45 Urine Ketones Trace (Negative) 03/31/24 02:45 Urine Blood Negative (Negative) 03/31/24 02:45 Urine Nitrate Negative (Negative) 03/31/24 02:45 Urine Bilirubin Negative (Negative) 03/31/24 02:45 Urine Urobilinogen 1.0 mg/dL (Negative) 03/31/24 02:45 Ur Leukocyte Esterase Negative (Negative) 03/31/24 02:45 Urine RBC 0-2 /hpf (0-2) 03/31/24 02:45 Urine WBC 6-10 /hpf (0-5) 03/31/24 02:45 Ur Squamous Epith Cells 0-5 /hpf (0-5) 03/31/24 02:45 Amorphous Sediment Not Reportable 03/31/24 02:45 Urine Bacteria None seen /hpf (NONE) 03/31/24 02:45 Hyaline Casts 0-4 /lpf H 03/31/24 02:45 Nasal MRSA (PCR) Not detected (Negative) 04/02/24 16:25 Urine Opiates Screen Positive ng/mL (Negative) H 03/31/24 02:45 Ur Barbiturates Screen Negative ng/mL (Negative) 03/31/24 02:45 Ur Phencyclidine Scrn Negative ng/mL (Negative) 03/31/24 02:45 Ur Amphetamines Screen Negative ng/mL (Negative) 03/31/24 02:45 U Benzodiazepines Scrn Negative ng/mL (Negative) 03/31/24 02:45 Urine Cocaine Screen Negative ng/mL (Negative) 03/31/24 02:45 U Marijuana (THC) Screen Negative ng/mL (Negative) 03/31/24 02:45 Vitals Last Vital Signs Temp 97.7 F 04/03/24 07:49 Pulse 76 04/03/24 07:49 Resp 20 H 04/03/24 07:49 BP 168/86 04/03/24 07:49 Pulse Ox 95 04/03/24 07:49 O2 Del Method Nasal Cannula 04/03/24 07:49 Discharge Plan Discharge Patient Disposition: Home Condition: Stable Prescriptions: New atorvastatin 40 mg Tablet 80 mg PO BEDTIME Qty: 180 1RF clopidogrel 75 mg Tablet 75 mg PO DAILY Qty: 90 1RF colchicine 0.6 mg Tablet 0.6 mg PO BID Qty: 60 0RF metoprolol tartrate 25 mg Tablet 12.5 mg PO BID@0900,2100 Qty: 90 0RF nitroglycerin 0.4 mg Tablet, Sublingual 0.4 mg sublingual Q5M PRN (Reason: Chest Pain) Qty: 30 1RF aspirin 325 mg Tablet,Delayed Release (Dr/Ec) 650 mg PO TID Qty: 180 1RF Rx Instructions: 650mg three times daily for 2 weeks, then reduce to 325mg daily Continued hydrocodone-acetaminophen 10-325 mg tablet 1 tab PO Q4H PRN (Reason: pain) 30 Days Qty: 180 0RF aspirin [[place] Low Dose Aspirin] 81 mg tablet,delayed release (DR/EC) 81 mg PO DAILY insulin lispro 100 unit/mL insulin pen See Rx Instructions .ROUTE .COMPLEX Qty: 30 5RF Dose Instruction: INJECT 30 UNITS subcutaneously three times daily As Needed for type 2 diabetes, Max Daily Dose: 120 units Rx Instructions: INJECT 30 UNITS subcutaneously three times daily As Needed for type 2 diabetes, Max Daily Dose: 120 units fluticasone propionate 50 mcg/actuation spray,suspension 2 spray intranasal DAILY PRN (Reason: allergy symptoms) 30 Days Qty: 16 1RF Rx Instructions: administer into each nostril albuterol sulfate 90 mcg/actuation HFA aerosol inhaler See Rx Instructions .ROUTE .COMPLEX Qty: 8.5 1RF Dose Instruction: USE one inhalation BY MOUTH EVERY 4 HOURS NEEDED FOR SHORTNESS OF BREATH OR wheezing Rx Instructions: USE one inhalation BY MOUTH EVERY 4 HOURS NEEDED FOR SHORTNESS OF BREATH OR wheezing insulin degludec [Tresiba FlexTouch U-200] 200 unit/mL (3 mL) insulin pen 96 unit SUBCUT DAILY Rx Instructions: INJECT 96 UNITS SUB-Q DAILY amlodipine 10 mg tablet 10 mg PO DAILY tizanidine 4 mg tablet 4 - 8 mg PO BEDTIME PRN (Reason: muscle spasticity) ergocalciferol (vitamin D2) 1,250 mcg (50,000 unit) capsule 1,250 mcg PO Q7D Held metformin 1,000 mg tablet 1,000 mg PO BID Hold Instructions: Resume on 04/10/24. Rx Instructions: TAKE 1 TABLET BY MOUTH TWICE DAILY FOR 30 DAYS Discontinued atorvastatin 20 mg tablet 20 mg PO DAILY Rx Instructions: TAKE 1 TABLET BY MOUTH EVERY DAY lisinopril 40 mg tablet 40 mg PO DAILY Rx Instructions: TAKE 1 TABLET BY MOUTH EVERY DAY Discharge Orders: Discharge Order (Routine); Ordered 04/03/24 Ordered By: Shirley Arita Referrals: Yong Garland MD [Primary Care Provider] - 04/10/24 1:00 pm Edmund Fletcher M.D [Physician] - 1 month (After your appointment with Shirley Arita, you will be scheduled to with Dr. Fletcher. ) Shirley Arita FNP [Nurse Practitioner] - 04/11/24 1:45 pm Discharge Diet: Advance as tolerated Discharge Activity: Resume usual activity Patient Instructions: Metoprolol (By mouth) (Lopressor, Toprol XL), Nitroglycerin (By mouth), Aspirin (By mouth), Colchicine (By mouth), Atorvastatin (By mouth), Clopidogrel (By mouth) (Plavix), Pantoprazole (By mouth) (Protonix), Coronary Angioplasty (DC), Acute Kidney Injury (DC), Opioid Safety, Post Angiogram Home Care Instructions Activity Restrictions/Additional Instructions: Please repeat BMP next 1 week. Please check your blood pressure daily at home maintain a blood pressure diary. Check your fasting blood sugar daily at home and maintain a blood sugar diary. Follow-up with a blood pressure and blood sugar diary with the primary care provider in next 1 week for further adjustment of medications. Going forward take Lantus 30 units daily along with short acting insulin as needed depending on sliding scale. Discharge Attestations Time Spent in Discharge Care*: less than 30 min Quality Metrics Clinical Quality Measures [ No reported AMI, CVA or VTE this stay] Coding Level of Care Code Acute Code for [facility] Fwd Diagnoses ST elevation myocardial infarction involving right coronary artery I21.11 Involved coronary artery: right coronary artery Diastolic CHF I50.30 Essential hypertension, benign I10 Mixed hyperlipidemia E78.2 Post-MS pericarditis I24.1 Acute kidney injury superimposed on CKD N17.9; N18.9
[2024-04-03 11:58] LABS: Glucose Point of Care 117 mg/dL (70-110)
== END 2024-04-03 12:37 | disposition home or self-care (01) | DRG 322 ==
LOC: ER 18:48 → ICU 19:11 → CSU 04-03 00:56
PROVIDERS: Internal Medicine; Student in an Organized Health Care Education/Training Program; Admitting Provider Internal Medicine; Emergency Provider Family Medicine; PCP Family Medicine; Visit Provider Internal Medicine
PROC: 027036Z Dilation of Coronary Artery, One Artery with Three Drug-eluting Intraluminal Devices, Percutaneous Approach (ICD-10-PCS; principal; 2024-03-30 17:00)
PROC: 027036Z Dilation of Coronary Artery, One Artery with Three Drug-eluting Intraluminal Devices, Percutaneous Approach (ICD-10-PCS; 2024-03-30 17:00)
DX: I21.11 ST elevation (STEMI) myocardial infarction involving right coronary artery (principal); I13.0 Hypertensive heart and chronic kidney disease with heart failure and stage 1 through stage 4 chronic kidney disease, or unspecified chronic kidney disease; I50.32 Chronic diastolic (congestive) heart failure; N17.9 Acute kidney failure, unspecified; I24.1 Dressler's syndrome; E11.22 Type 2 diabetes mellitus with diabetic chronic kidney disease; N18.9 Chronic kidney disease, unspecified; Z79.4 Long term (current) use of insulin; Z79.84 Long term (current) use of oral hypoglycemic drugs; E78.2 Mixed hyperlipidemia; E11.42 Type 2 diabetes mellitus with diabetic polyneuropathy; G47.33 Obstructive sleep apnea (adult) (pediatric); E55.9 Vitamin D deficiency, unspecified; I95.9 Hypotension, unspecified; Z87.891 Personal history of nicotine dependence; Z79.82 Long term (current) use of aspirin; Z85.01 Personal history of malignant neoplasm of esophagus
CPT/HCPCS: 36415; 36416; 71045; 80048; 80053; 80061; 80306; 81001; 82607; 82746; 82962; 83036; 83540; 83550; 83735; 83880; 84100; 84145; 84443; 84484; 85025; 85347; 85610; 85651; 85730; 86140; 92973; 93005; 93306; 93458; 96372; 96374; 96375; 96376; 99152; 99153; C1725; C1757; C1769; C1874; C1887; C1894; C9600; J1171; J1200; J1644; J1650; J1815; J2250; J3010; J3475; J3490; J7030; J7040; Q9967

== ENCOUNTER → 2024-04-11 13:15 | Outpatient (BNVA) | payer MEDICARE, MEDICAID, SELFPAY | PROVIDERS: PCP Family Medicine; Visit Provider Nurse Practitioner Family | DX: I31.9 Disease of pericardium, unspecified (principal); I10 Essential (primary) hypertension; I25.2 Old myocardial infarction; Z95.5 Presence of coronary angioplasty implant and graft | CPT/HCPCS: 36415; 80048; 99214 ==

== ENCOUNTER → 2024-06-26 12:56 | Outpatient (BNVA) | payer MEDICARE, MEDICAID, SELFPAY | PROVIDERS: PCP Family Medicine; Visit Provider Internal Medicine | DX: I25.10 Atherosclerotic heart disease of native coronary artery without angina pectoris (principal); I12.9 Hypertensive chronic kidney disease with stage 1 through stage 4 chronic kidney disease, or unspecified chronic kidney disease; E11.22 Type 2 diabetes mellitus with diabetic chronic kidney disease; N18.32 Chronic kidney disease, stage 3b; Z79.4 Long term (current) use of insulin; Z79.84 Long term (current) use of oral hypoglycemic drugs; I25.2 Old myocardial infarction; Z79.01 Long term (current) use of anticoagulants; Z79.82 Long term (current) use of aspirin; Z87.891 Personal history of nicotine dependence; R07.9 Chest pain, unspecified; R06.02 Shortness of breath | CPT/HCPCS: 99214 ==

== ENCOUNTER 2024-07-07 08:47 | Outpatient (CLI) | payer MEDICARE, MEDICAID, SELFPAY ==
[2024-07-07 09:04] LABS: Glucose Point of Care 350 mg/dL (70-110)
[2024-07-07 09:14] VITALS: BMI 31.8
--- NOTE | 2024-07-07 09:23 | NMCV_ITS ---
NM matthew perf SPECT r/s* [id number] David Mota Age: 69 Gender: M : 1955 Exam Date: 07/07/2024 09:58 Ordering Phys: Edmund Fletcher M.D ([email or web address]) Technologist: ZAHRA Julian Exam Location: [facility] Indications: cp STRESS TEST 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 Images obtained in supine and prone position. SPECT RESULTS Technical Quality: Good Raw Data Analysis: Normal Image Corrections: No attenuation or motion correction applied Summed Stress Score: 16 Summed Rest Score: 13 Summed Difference Score: 3 PERFUSION FINDINGS Large area of fixed perfusion defect noted in basal to distal inferior and inferolateral wall suggestive of old myocardial infarction versus scarring. This study is negative for ischemia but showed old myocardial infarction. FUNCTIONAL RESULTS (calculated via Gated SPECT) Stress Image LV EF (%): 48 Stress EDV (mL):146 TID: 1.04 Stress ESV (mL):76 FUNCTIONAL FINDINGS: Inferior and inferolateral wall akinesis IMPRESSIONS Large area of fixed perfusion defect noted in basal to distal inferior and inferolateral wall suggestive of old myocardial infarction versus scarring. This study is negative for ischemia but showed old myocardial infarction. Kaya Yan MD (Electronically Signed) Final Date: 11 Jul 2024 15:30 S
--- NOTE | 2024-07-07 09:23 | ECG_ITS ---
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 The perfusion scan will be documented separately. DATA: Baseline heart rate was 52 beats per minute. Baseline blood pressure was 117/95 millimeters of mercury. Target heart rate was 153. Maximum heart rate achieved was 79. which was 51% of the predicted target heart rate. Maximum blood pressure was 150/95 millimeters of mercury. The reason for ending the test was completion of the protocol. The patient did not experience any symptoms. ELECTROCARDIOGRAM: BASELINE: Sinus bradycardia normal axis. Interventricular conduction delay, otherwise, no ST-T changes suggestive of ischemia noted. No arrhythmia noted. EXERCISE: After Lexiscan injection, no ST-T changes suggestive of ischemic noted. No arrhythmia noted. CONCLUSION: Please note due to baseline abnormality of the EKG specificity and sensitivity of the EKG portion of LexiScan MIBI stress test will be low 1. EKG not suggestive of ischemia 2. Lexiscan injection unremarkable. 3. Perfusion scan will be documented separately. Electronically Signed On 07-16-2024 19:26:51 CDT by DALE FAITH [email or web address]
[2024-07-07] MEDS: regadenoson 0.4 Mg/5 ml Syringe IVP (10:22)
[2024-07-07 10:33] VITALS: BP 133/64; PULSE 66
== END 2024-07-07 08:48 | disposition home or self-care (01) ==
LOC: CDL 08:50
PROVIDERS: PCP Family Medicine; Visit Provider Internal Medicine
DX: R07.9 Chest pain, unspecified (principal); R06.02 Shortness of breath; R93.1 Abnormal findings on diagnostic imaging of heart and coronary circulation
CPT/HCPCS: 36415; 36416; 78452; 82962; 93017; 96374; A9500; J2785

== ENCOUNTER → 2024-10-26 09:32 | Outpatient (BNVA) | payer MEDICARE, MEDICAID, SELFPAY | PROVIDERS: PCP Family Medicine; Visit Provider Nurse Practitioner Family | DX: N18.32 Chronic kidney disease, stage 3b (principal); E55.9 Vitamin D deficiency, unspecified | CPT/HCPCS: 80069; 82043; 82306; 82310; 83970; 85025 ==

== ENCOUNTER → 2025-01-26 07:36 | Outpatient (BNVA) | payer MEDICARE, MEDICAID, SELFPAY | PROVIDERS: PCP Family Medicine; Visit Provider Nurse Practitioner Family | DX: I25.10 Atherosclerotic heart disease of native coronary artery without angina pectoris (principal); I10 Essential (primary) hypertension; E11.9 Type 2 diabetes mellitus without complications; Z79.4 Long term (current) use of insulin; I31.9 Disease of pericardium, unspecified; Z87.891 Personal history of nicotine dependence; I25.2 Old myocardial infarction | CPT/HCPCS: 36415; 80053; 85025; 99214 ==

== ENCOUNTER → 2025-02-07 11:06 | Outpatient (BNVA) | payer MEDICARE, MEDICAID, SELFPAY | PROVIDERS: PCP Family Medicine; Visit Provider Nurse Practitioner Family | DX: E11.42 Type 2 diabetes mellitus with diabetic polyneuropathy (principal); Z79.4 Long term (current) use of insulin; I10 Essential (primary) hypertension; E78.2 Mixed hyperlipidemia | CPT/HCPCS: 80053; 80061; 81003; 82043; 82310; 83036; 83735; 83970; 84439; 84443 ==

== ENCOUNTER → 2025-02-08 10:15 | Outpatient (BNVA) | payer MEDICARE, MEDICAID, SELFPAY | PROVIDERS: PCP Family Medicine; Visit Provider Nurse Practitioner Family | DX: E11.42 Type 2 diabetes mellitus with diabetic polyneuropathy (principal); Z79.4 Long term (current) use of insulin | CPT/HCPCS: 80053 ==

== ENCOUNTER 2025-02-15 15:32 | Outpatient (CLI) | payer MEDICARE, MEDICAID, SELFPAY ==
[2025-02-15 19:02] LABS: Blood Urea Nitrogen 28 mg/dL (8-23); Calcium 8.8 mg/dL (8.5-10.5); Carbon Dioxide 22 mmol/L (22-29); Chloride 106 mmol/L (98-107); Glucose 224 mg/dL (65-115); Osmolality Calculated 306 mOsm/kg (285-295); Sodium 142 mmol/L (136-145)
[2025-02-15 20:02] LABS: Anion Gap 18.3 (5-19); Potassium 4.3 mmol/L (3.5-5.1)
== END 2025-02-15 15:33 | disposition home or self-care (01) ==
LOC: LAB 15:32
PROVIDERS: PCP Family Medicine; Visit Provider Nurse Practitioner Family
DX: I10 Essential (primary) hypertension (principal)
CPT/HCPCS: 36415; 80048

== ENCOUNTER → 2025-03-06 10:37 | Outpatient (BNVA) | payer MEDICARE, MEDICAID, SELFPAY | PROVIDERS: PCP Family Medicine; Visit Provider Nurse Practitioner Family | DX: N18.32 Chronic kidney disease, stage 3b (principal); E11.22 Type 2 diabetes mellitus with diabetic chronic kidney disease; I12.9 Hypertensive chronic kidney disease with stage 1 through stage 4 chronic kidney disease, or unspecified chronic kidney disease | CPT/HCPCS: 80053 ==